=== PATIENT | male | born 1970 | race Caucasian/White ===

== ENCOUNTER 2017-05-25 15:15 | Outpatient (CLI) | payer BC ==
--- NOTE | 2017-05-25 18:57 | RAD ---
LUMBAR SPINE: 05/25/17 Three views. HISTORY: Lumbar pain. Lumbar vertebrae maintain height and alignment. Mild loss of disc space at L5-S1. Mild to moderate d egenerative osteophytes anteriorly. No evidence of spondylolisthesis or spondylolysis. Facet hypertr ophy at L4-5 and L5-S1. IMPRESSION: Mild to moderate degenerative changes in the lumbar spine noted as described. POS: [facility]
== END 2017-05-25 15:16 | disposition home or self-care (01) ==
LOC: RAD-FRANK 15:15
DX: M54.5 Low back pain (principal); M47.816 Spondylosis without myelopathy or radiculopathy, lumbar region
CPT/HCPCS: 72100

== ENCOUNTER 2018-04-19 19:01 | Emergency (ER) | payer BC ==
--- NOTE | 2018-04-19 22:27 | RAD ---
LEFT RIB SERIES: 04/19/18 COMPARISON: None. HISTORY: Left rib pain for three to four days. FINDINGS: Three views of the left ribs shows no evidence of displaced left rib fracture. No underlying pleural thickening or pneumothorax are seen. No expansile rib lesions are present. IMPRESSION: No significant left rib abnormality. POS: [facility]
[2018-04-19] MEDS ORDERED: Ketorolac Tromethamine 60 MG/2 ML VIAL ONE (23:06)
[2018-04-19] MEDS ORDERED: Ibuprofen 800 MG TAB ONE (23:10)
== END 2018-04-20 00:39 | disposition home or self-care (01) ==
LOC: ERS 19:01
DX: R07.81 Pleurodynia (principal); H00.023 Hordeolum internum right eye, unspecified eyelid; I10 Essential (primary) hypertension; Z79.899 Other long term (current) drug therapy
CPT/HCPCS: J1885

== ENCOUNTER 2021-05-18 20:11 | Emergency (ER) | payer BC ==
[2021-05-18] MEDS ORDERED: Proparacaine 0.5% Opth 15 ML BOT ONE (21:38)
[2021-05-18] MEDS ORDERED: Fluorescein Opthalmic Strip ONE (21:38)
== END 2021-05-18 22:20 | disposition home or self-care (01) ==
LOC: ERS 20:11
DX: H00.013 Hordeolum externum right eye, unspecified eyelid (principal); I10 Essential (primary) hypertension
CPT/HCPCS: 99283

== ENCOUNTER 2021-08-15 19:08 | Emergency (ER) | payer BC, OTHER ==
[2021-08-15] MEDS ORDERED: Ketorolac Tromethamine 30 MG/ML VIAL ONE (20:02)
[2021-08-15 20:04] LABS: #Eosinphils 0.2 thou/uL (0.0-0.7); #Lymphocytes 1.9 thou/uL (1.20-3.40); #Monocytes 0.9 thou/uL (0.11-0.59); #Neutrophils 11.1 thou/uL (1.40-6.50); %Basophils 0.3 % (0.0-1.0); %Eosinophils 1.3 % (0.0-10.0); %Lymphocytes 13.6 % (21.0-51.0); %Monocytes 6.2 % (0.0-10.0); %Neutrophils 78.7 % (42.0-75.0); Hemoglobin 16.2 g/dL (14.0-18.0); Mean Corpuscular HGB CONC 34.4 g/dL (32.0-36.0); Mean Corpuscular Hemoglobin 32.8 pg (27.0-31.0); Mean Corpuscular Volume 95.4 fL (78.0-98.0); Mean Platelet Volume 7.2 fL (7.4-10.4); Platelet Count 245 thou/uL (130-400); RBC Distribution Width 12.1 % (11.5-14.5); Red Blood Cell (RBC) Count 4.94 mill/uL (4.70-6.10); White Blood Cell (WBC) Count 14.1 thou/uL (4.8-10.8)
[2021-08-15 20:27] LABS: ALT (SGPT) 21 U/L (8-55); AST (SGOT) 19 U/L (5-34); Albumin 3.8 g/dL (3.5-5.0); Alkaline Phosphatase 116 U/L (40-110); Anion Gap 14 mmol/L (10-20); BUN (Urea Nitrogen) 11 mg/dL (8.4-25.7); Bilirubin, Total 1.7 mg/dL (0.2-1.2); Calc. Creatinine Clearance 0 mL/min (70-130); Calcium 9.2 mg/dL (7.8-10.44); Carbon Dioxide 24 mmol/L (22-29); Chloride 102 mmol/L (98-107); Glucose 339 mg/dL (70-105); Potassium 3.8 mmol/L (3.5-5.1); Protein, Total 6.8 g/dL (6.0-8.3); Sodium 136 mmol/L (136-145)
[2021-08-15] MEDS ORDERED: Lidocaine 1% (PF) 30 ML VIAL ONE (20:37)
[2021-08-15] MEDS ORDERED: cefTRIAXone\\ROCEPHIN 1 GM VIAL ONE (21:38)
[2021-08-15] MEDS ORDERED: cloNIDine 0.2 MG TAB PO SCH (21:45)
== END 2021-08-15 22:28 | disposition home or self-care (01) ==
LOC: ERS 19:08
DX: L02.31 Cutaneous abscess of buttock (principal); L03.317 Cellulitis of buttock; I10 Essential (primary) hypertension
CPT/HCPCS: 10060; 36415; 80053; 85025; 96365; 96375; J0696; J1885; J2001

== ENCOUNTER 2022-01-06 17:37 | Emergency (ER) | payer SELFPAY ==
[2022-01-06] MEDS ORDERED: Ketorolac Tromethamine 30 MG/ML VIAL ONE (19:11)
== END 2022-01-06 19:40 | disposition home or self-care (01) ==
LOC: ERS 17:37
DX: S90.32XA Contusion of left foot, initial encounter (principal); M79.605 Pain in left leg; I10 Essential (primary) hypertension; R73.03 Prediabetes; X58.XXXA Exposure to other specified factors, initial encounter
CPT/HCPCS: 96372; J1885

== ENCOUNTER 2022-01-10 17:38 | Inpatient (IN) | payer OTHER, SELFPAY ==
[2022-01-10] MEDS ORDERED: cefTRIAXone\\ROCEPHIN 1 GM VIAL ONE (18:25)
[2022-01-10 18:29] LABS: Mean Corpuscular HGB CONC 33.1 g/dL (32.0-36.0); Mean Corpuscular Hemoglobin 32.7 pg (27.0-31.0); Mean Corpuscular Volume 98.9 fL (78.0-98.0); Mean Platelet Volume 9.6 fL (7.4-10.4); Platelet Count 235 thou/uL (130-400); RBC Distribution Width 12.6 % (11.5-14.5); Red Blood Cell (RBC) Count 4.89 mill/uL (4.70-6.10); White Blood Cell (WBC) Count 18.8 thou/uL (4.8-10.8)
[2022-01-10 18:44] LABS: ALT (SGPT) 60 U/L (8-55); AST (SGOT) 124 U/L (5-34); Albumin 1.9 g/dL (3.5-5.0); Alkaline Phosphatase 85 U/L (40-110); Anion Gap 28 mmol/L (10-20); BUN (Urea Nitrogen) 84 mg/dL (8.4-25.7); Bilirubin, Total 1.9 mg/dL (0.2-1.2); Calc. Creatinine Clearance 0 mL/min (70-130); Calcium 6.9 mg/dL (7.8-10.44); Carbon Dioxide 12 mmol/L (22-29); Chloride 89 mmol/L (98-107); Glucose 420 mg/dL (70-105); Potassium 3.8 mmol/L (3.5-5.1); Protein, Total 3.9 g/dL (6.0-8.3); Sodium 125 mmol/L (136-145)
[2022-01-10 18:48] LABS: INR-International Normal Ratio 1.5; PTT 34.6 sec (22.9-36.1); Prothrombin Time 18.4 sec (12.0-14.7)
[2022-01-10 18:48] LABS: Band 34 % (5-11); Lymphocytes 8 % (21-51); MDiff Complete? YES; Metamyelocyte 3 % (0-0); Monocytes 3 % (0-10); Myelocyte 3 % (0-0); Neutrophil 47 % (42-75); Platelet Morphology Comment Appears Adequate; Polychromasia SLIGHT = 2-3 cells (100X) (0-2/hpf); Reactive Lymphocytes 2 % (0-10)
[2022-01-10] MEDS ORDERED: Aspirin 325 MG TAB ONE (19:11)
[2022-01-10] MEDS ORDERED: Enoxaparin Sodium 80 MG/0.8 ML SYRINGE ONE (19:11)
[2022-01-10] MEDS ORDERED: Ondansetron ODT 4 MG TAB PO PRN (19:50)
[2022-01-10] MEDS ORDERED: Sodium Chloride 0.9% 1,000 ML IV SCH (20:00)
[2022-01-10] MEDS ORDERED: Piperacillin/Tazobactam 3.375 GM in Sodium Chloride 0.9% 100 ML IVPB SCH ×2 (20:00→20:15)
[2022-01-10] MEDS ORDERED: VANCOMYCIN 1.25 GM/250 ML BAG 1.25 GM in Premix Bag 1 BAG IVPB SCH ×2 (20:02→21:00)
[2022-01-10 20:32] LABS: Analyzer IN Cardio ER; Base Excess (BEa) -13.6 mEq/L (-2.0 to +3.0); CO2 Tension 33.3 mmHg (35.0-45.0); Calcium, Ionized (arterial) 0.98 mmol/L (1.12-1.30); Carboxyhemoglobin (COHb) 0.2 gm% (0.0-3.0); Hemoglobin (Hb) 16.3 g/dL (14.0-18.0); O2 Tension (PaO2), arterial 93.3 mmHg (80.0-100.0); Potassium - ABG Lab 3.36 mmol/L (3.70-5.30)
[2022-01-10] MEDS ORDERED: Norepinephrine 8 MG/0.9% NS 250 ML ONE (20:36)
[2022-01-10 20:38] LABS: ALV-art Gradient 185.925 mmHg (0-20); Puncture Site RRA; pH, Arterial 7.21 (7.35-7.45)
[2022-01-10] MEDS ORDERED: INSULIN REGULAR IN 0.9 % NACL 100 UNIT/100 ML BAG ONE (20:45)
[2022-01-10] MEDS ORDERED: Amiodarone 150 MG/3 ML VIAL ONE ×2 (21:05→21:12)
[2022-01-10] MEDS ORDERED: Amiodarone 150 MG, Admixture Fee 1 EACH in Dextrose 5% in Water 100 ML IVPB SCH (21:15)
[2022-01-10 21:23] LABS: SARS-CoV-2 NAA Rapid Test Not Detected (NotDetected)
[2022-01-10 21:25] LABS: Lactic Acid 7.4 mmol/L (0.5-2.2)
[2022-01-10 21:28] LABS: Bilirubin Negative (Negative); Blood, Urine 3+ (Negative); Clarity Turbid (Clear); Glucose, Urine (Dipstick) Greater than 1000 mg/dL (Negative); Ketone, Urine Trace mg/dL (Negative); Leukocyte 500 Leu/uL (Negative); Nitrite Negative (Negative); Protein, Urine (Dipstick) 100 mg/dL (Neg-Trace); Specific Gravity, Urine 1.018 (1.002-1.036); Squamous Epithelial None Seen HPF (0-3)
[2022-01-10 21:39] LABS: Bacteria/HPF 4+ HPF (None Seen); RBC/HPF Greater than 50 HPF (0-3)
[2022-01-10 21:40] LABS: Yeast-Budding None Seen HPF (None Seen)
[2022-01-10] MEDS ORDERED: Sodium Bicarb 50 MEQ/50 ML VIAL ONE (22:50)
[2022-01-10 22:59] LABS: Actual Bicarbonate (HCO3a) 11.7 mEq/L (22-28); Base Excess (BEa) -14.6 mEq/L (-2.0 to +3.0); CO2 Tension 29.7 mmHg (35.0-45.0); Calcium, Ionized (arterial) 1.01 mmol/L (1.12-1.30); Hemoglobin (Hb) 17.1 g/dL (14.0-18.0); O2 Tension (PaO2), arterial 89.9 mmHg (80.0-100.0)
[2022-01-10 23:00] LABS: ALV-art Gradient 229.475 mmHg (0-20); Puncture Site RRA; pH, Arterial 7.21 (7.35-7.45)
[2022-01-10] MEDS ORDERED: Digoxin 0.5 MG/2 ML AMP SLOW IVP SCH (23:00)
[2022-01-10] MEDS ORDERED: methylPREDNISolone Sod Succ/PF 125 MG/2 ML VIAL IVP SCH (23:00)
[2022-01-10] MEDS ORDERED: Lorazepam 2 MG/ML VIAL SLOW IVP PRN (23:08)
[2022-01-10] MEDS ORDERED: Sodium Bicarbonate 100 MEQ in Sodium Chloride 0.45% 1,000 ML IV SCH (23:15)
[2022-01-10] MEDS ORDERED: Sodium Chloride 0.9% 500 ML IV SCH (23:15)
[2022-01-10] MEDS: Sodium Bicarbonate 150 MEQ in Sterile Water Injection 1,000 ML IV SCH (23:19)
[2022-01-10 23:29] LABS: ALT (SGPT) 62 U/L (8-55); AST (SGOT) 143 U/L (5-34); Albumin 1.9 g/dL (3.5-5.0); Alkaline Phosphatase 78 U/L (40-110); Anion Gap 18 mmol/L (10-20); BUN (Urea Nitrogen) 81 mg/dL (8.4-25.7); Bilirubin, Total 1.6 mg/dL (0.2-1.2); Calc. Creatinine Clearance 0 mL/min (70-130); Calcium 6.9 mg/dL (7.8-10.44); Carbon Dioxide 19 mmol/L (22-29); Chloride 95 mmol/L (98-107); Globulin 2.7 g/dL (2.4-3.5); Glucose 291 mg/dL (70-105); Potassium 3.4 mmol/L (3.5-5.1); Protein, Total 4.6 g/dL (6.0-8.3); Sodium 129 mmol/L (136-145)
[2022-01-10] MEDS ORDERED: Dextrose 5% in Water 1,000 ML IV PRN (23:54)
[2022-01-10] MEDS ORDERED: Dextrose 50% Abboject 50 ML SYRINGE SLOW IVP PRN (23:54)
[2022-01-11] MEDS: Piperacillin/Tazobactam 3.375 GM in Sodium Chloride 0.9% 100 ML IVPB SCH ×4 (00:04→23:05)
[2022-01-11] MEDS: HumaLOG 300 UNITS/3 ML VIAL SC PRN ×4 (00:06→20:52)
[2022-01-11] MEDS ORDERED: Propofol 1,000 MG/100 ML VIAL IV ONE (00:11)
[2022-01-11] MEDS ORDERED: Benzocaine 20% Spray 60 ML CAN FS SCH (00:30)
[2022-01-11 00:56] LABS: Magnesium 2.2 mg/dL (1.6-2.6)
[2022-01-11] MEDS ORDERED: Lorazepam 2 MG/ML VIAL SLOW IVP PRN (01:00)
[2022-01-11] MEDS ORDERED: Morphine 4 MG/ML VIAL SLOW IVP PRN (01:00)
[2022-01-11] MEDS ORDERED: Fentanyl BOLUS 250 ML IVPB PRN (01:00)
[2022-01-11] MEDS ORDERED: DISCONTINUE PREVIOUS NARCOTIC PAIN MEDICATIONS AND BENZODIAZEPINES FS SCH (01:00)
[2022-01-11] MEDS ORDERED: Propofol BOLUS 1,000 MG/100 ML VIAL IV PRN (01:00)
[2022-01-11 01:21] LABS: Actual Bicarbonate (HCO3a) 17.3 mEq/L (22-28); Base Excess (BEa) -7.7 mEq/L (-2.0 to +3.0); CO2 Tension 34.4 mmHg (35.0-45.0); Calcium, Ionized (arterial) 0.93 mmol/L (1.12-1.30); Carboxyhemoglobin (COHb) 0.7 gm% (0.0-3.0); Hemoglobin (Hb) 16.2 g/dL (14.0-18.0); O2 Tension (PaO2), arterial 73.6 mmHg (80.0-100.0); Potassium - ABG Lab 3.33 mmol/L (3.70-5.30); pH, Arterial 7.32 (7.35-7.45)
[2022-01-11 01:23] LABS: Puncture Site Arterial Line
[2022-01-11] MEDS ORDERED: Vecuronium 10 MG VIAL IV PRN (01:45)
[2022-01-11] MEDS: fentaNYL Citrate-0.9 % NaCl/PF 100 ML IV SCH ×2 (01:50→11:10)
[2022-01-11] MEDS: Midazolam HCl 2 mg/2 ml Vial ONE (01:53)
[2022-01-11] MEDS ORDERED: Digoxin 0.5 MG/2 ML AMP SLOW IVP SCH ×3 (02:00→10:00)
[2022-01-11] MEDS: Sodium Bicarbonate 150 MEQ in Sterile Water Injection 1,000 ML IV SCH (02:29)
[2022-01-11] MEDS: Potassium Chloride 20 MEQ in Premix Bag 1 BAG IVPB SCH ×2 (03:20→05:35)
[2022-01-11] MEDS: Propofol 1,000 MG/100 ML VIAL IV PRN ×3 (03:22→20:52)
[2022-01-11] MEDS: Sodium Bicarbonate 150 MEQ in Dextrose 5% in Water 1,000 ML IV SCH ×5 (03:57→23:05)
[2022-01-11 04:11] LABS: Hemoglobin A1c 10.2 % (4.0-6.0)
[2022-01-11 04:29] LABS: ALT (SGPT) 63 U/L (8-55); AST (SGOT) 147 U/L (5-34); Albumin 1.8 g/dL (3.5-5.0); Alkaline Phosphatase 66 U/L (40-110); Anion Gap 20 mmol/L (10-20); BUN (Urea Nitrogen) 87 mg/dL (8.4-25.7); Bilirubin, Total 1.7 mg/dL (0.2-1.2); Calc. Creatinine Clearance 29 mL/min (70-130); Calcium 6.7 mg/dL (7.8-10.44); Carbon Dioxide 18 mmol/L (22-29); Chloride 95 mmol/L (98-107); Globulin 2.6 g/dL (2.4-3.5); Glucose 197 mg/dL (70-105); Potassium 3.5 mmol/L (3.5-5.1); Protein, Total 4.4 g/dL (6.0-8.3); Sodium 129 mmol/L (136-145)
[2022-01-11] MEDS ORDERED: Metoprolol Tartrate 5 MG/5 ML VIAL IVP SCH (05:00)
[2022-01-11] MEDS: methylPREDNISolone Sod Succ 40 MG VIAL IVP SCH ×4 (05:35→23:05)
[2022-01-11 06:03] LABS: Band 24 % (5-11); Hemoglobin 16.2 g/dL (14.0-18.0); Lymphocytes 19 % (21-51); MDiff Complete? YES; Mean Corpuscular HGB CONC 33.2 g/dL (32.0-36.0); Mean Corpuscular Hemoglobin 32.7 pg (27.0-31.0); Mean Corpuscular Volume 98.6 fL (78.0-98.0); Mean Platelet Volume 10.1 fL (7.4-10.4); Metamyelocyte 15 % (0-0); Monocytes 8 % (0-10); Myelocyte 9 % (0-0); Neutrophil 25 % (42-75); Platelet Count 207 thou/uL (130-400); RBC Distribution Width 12.8 % (11.5-14.5); Red Blood Cell (RBC) Count 4.96 mill/uL (4.70-6.10); White Blood Cell (WBC) Count 14.8 thou/uL (4.8-10.8)
[2022-01-11] MEDS: Norepinephrine 8 MG/0.9% NS 250 ML IVPB SCH ×2 (06:26→12:36)
[2022-01-11 07:16] LABS: Lactic Acid 8.2 mmol/L (0.5-2.2)
[2022-01-11 07:25] LABS: Actual Bicarbonate (HCO3a) 13.9 mEq/L (22-28); Base Excess (BEa) -10.8 mEq/L (-2.0 to +3.0); CO2 Tension 28.8 mmHg (35.0-45.0); Calcium, Ionized (arterial) 0.95 mmol/L (1.12-1.30); Hemoglobin (Hb) 16.6 g/dL (14.0-18.0); O2 Tension (PaO2), arterial 79.8 mmHg (80.0-100.0); Potassium - ABG Lab 4.09 mmol/L (3.70-5.30)
[2022-01-11 07:32] LABS: Puncture Site Arterial Line
[2022-01-11 07:47] LABS: Creatinine, Urine 125.54 mg/dL (63-166); Protein, Urine Random Quant 142 mg/dL (1-14); Sodium, Urine Less than 20 mmol/L (Not Available); Urea Nitrogen, Random Urine 348 mg/dl
[2022-01-11] MEDS ORDERED: methylPREDNISolone Sod Succ/PF 125 MG/2 ML VIAL IVP SCH (09:00)
[2022-01-11] MEDS ORDERED: Enoxaparin Sodium 30 MG/0.3 ML SYRINGE SC SCH (09:00)
[2022-01-11] MEDS ORDERED: Communication Order-Pharmacy FS SCH (09:38)
[2022-01-11 10:07] LABS: Amphetamine Not Detected (NotDetected); Barbiturates Screen Not Detected (NotDetected); Benzodiazepine Screen Not Detected (NotDetected); Cocaine Metabolite Screen Not Detected (NotDetected); Methadone Not Detected (NotDetected); Methamphetamine Not Detected (NotDetected); Opiate Screen Not Detected (NotDetected); Oxycodone Screen Not Detected (NotDetected); Phencyclidine (PCP) Not Detected (NotDetected); THC/Cannabinoid Screen Not Detected (NotDetected); Tricyclic Screen Not Detected (NotDetected)
[2022-01-11 10:14] LABS: Hemoglobin 16.1 g/dL (14.0-18.0); Platelet Count 203 thou/uL (130-400)
[2022-01-11] MEDS ORDERED: Vancomycin 1 GM in Premix Bag 1 BAG IVPB SCH (12:15)
[2022-01-11 12:51] LABS: Troponin I 1.093 ng/mL (< 0.028)
[2022-01-11] MEDS ORDERED: Albumin 25% 25 GM/100 ML BOT IVPB SCH (13:15)
[2022-01-11] MEDS: Amiodarone 450 MG in Dextrose 5% in Water 250 ML IVPB SCH (14:26)
[2022-01-11 15:17] LABS: ALT (SGPT) 60 U/L (8-55); AST (SGOT) 131 U/L (5-34); Albumin 1.9 g/dL (3.5-5.0); Alkaline Phosphatase 65 U/L (40-110); Anion Gap 26 mmol/L (10-20); BUN (Urea Nitrogen) 96 mg/dL (8.4-25.7); Calc. Creatinine Clearance 25 mL/min (70-130); Calcium 7.1 mg/dL (7.8-10.44); Carbon Dioxide 13 mmol/L (22-29); Chloride 92 mmol/L (98-107); Globulin 2.4 g/dL (2.4-3.5); Glucose 399 mg/dL (70-105); Potassium 3.8 mmol/L (3.5-5.1); Protein, Total 4.3 g/dL (6.0-8.3); Sodium 127 mmol/L (136-145)
[2022-01-11 15:24] LABS: Troponin I 0.882 ng/mL (< 0.028)
[2022-01-11] MEDS: Albumin 25% 25 GM/100 ML BOT IVPB SCH ×2 (18:17→23:05)
[2022-01-11] MEDS ORDERED: Enoxaparin Sodium 100 MG/ML SYRINGE SC SCH (21:00)
[2022-01-11 21:03] LABS: Actual Bicarbonate (HCO3a) 16.5 mEq/L (22-28); CO2 Tension 28.3 mmHg (35.0-45.0); Calcium, Ionized (arterial) 0.89 mmol/L (1.12-1.30); Carboxyhemoglobin (COHb) 0.8 gm% (0.0-3.0); Hemoglobin (Hb) 14.1 g/dL (14.0-18.0); O2 Tension (PaO2), arterial 75.3 mmHg (80.0-100.0); Potassium - ABG Lab 3.18 mmol/L (3.70-5.30); pH, Arterial 7.38 (7.35-7.45)
[2022-01-11 21:04] LABS: Puncture Site Arterial Line
[2022-01-11 21:07] LABS: ALV-art Gradient 174.525 mmHg (0-20)
[2022-01-11 22:01] LABS: ALT (SGPT) 55 U/L (8-55); AST (SGOT) 139 U/L (5-34); Albumin 2.1 g/dL (3.5-5.0); Alkaline Phosphatase 76 U/L (40-110); Anion Gap 28 mmol/L (10-20); BUN (Urea Nitrogen) 106 mg/dL (8.4-25.7); Bilirubin, Total 2.4 mg/dL (0.2-1.2); Calc. Creatinine Clearance 23 mL/min (70-130); Calcium 6.9 mg/dL (7.8-10.44); Carbon Dioxide 14 mmol/L (22-29); Chloride 90 mmol/L (98-107); Globulin 2.8 g/dL (2.4-3.5); Glucose 394 mg/dL (70-105); Potassium 3.9 mmol/L (3.5-5.1); Protein, Total 4.9 g/dL (6.0-8.3); Sodium 128 mmol/L (136-145)
[2022-01-11] MEDS ORDERED: VANCOMYCIN 1.25 GM/250 ML BAG 1.25 GM in Premix Bag 1 BAG IVPB SCH (23:59)
[2022-01-12] MEDS: HumaLOG 300 UNITS/3 ML VIAL SC PRN ×7 (00:17→21:40)
[2022-01-12] MEDS: fentaNYL Citrate-0.9 % NaCl/PF 100 ML IV SCH ×2 (01:09→12:41)
[2022-01-12 05:03] LABS: Anion Gap 25 mmol/L (10-20); BUN (Urea Nitrogen) 108 mg/dL (8.4-25.7); Calc. Creatinine Clearance 23 mL/min (70-130); Calcium 7.4 mg/dL (7.8-10.44); Carbon Dioxide 19 mmol/L (22-29); Chloride 87 mmol/L (98-107); Glucose 353 mg/dL (70-105); Sodium 128 mmol/L (136-145)
[2022-01-12 05:07] LABS: Fibrinogen 786 mg/dL (253-463)
[2022-01-12 05:08] LABS: INR-International Normal Ratio 1.5; PTT 39.5 sec (22.9-36.1); Prothrombin Time 18.7 sec (12.0-14.7)
[2022-01-12] MEDS: Albumin 25% 25 GM/100 ML BOT IVPB SCH (05:09)
[2022-01-12] MEDS: methylPREDNISolone Sod Succ 40 MG VIAL IVP SCH ×3 (05:09→18:36)
[2022-01-12] MEDS: Norepinephrine 8 MG/0.9% NS 250 ML IVPB SCH (05:09)
[2022-01-12] MEDS: Propofol 1,000 MG/100 ML VIAL IV PRN ×2 (05:09→21:36)
[2022-01-12 05:16] LABS: D-Dimer Test 5.61 *mcg/mL (0.27-0.43)
[2022-01-12 05:21] LABS: Band 65 % (5-11); Hemoglobin 12.8 g/dL (14.0-18.0); Lymphocytes 1 % (21-51); MDiff Complete? YES; Mean Corpuscular HGB CONC 32.2 g/dL (32.0-36.0); Mean Corpuscular Hemoglobin 31.7 pg (27.0-31.0); Mean Corpuscular Volume 98.4 fL (78.0-98.0); Mean Platelet Volume 10.2 fL (7.4-10.4); Metamyelocyte 5 % (0-0); Monocytes 1 % (0-10); Myelocyte 3 % (0-0); Neutrophil 25 % (42-75); Platelet Count 108 thou/uL (130-400); Platelet Morphology Comment Appears Decreased; RBC Distribution Width 12.9 % (11.5-14.5); Red Blood Cell (RBC) Count 4.03 mill/uL (4.70-6.10); Toxic Granulation SLIGHT; Vacuoles SLIGHT
[2022-01-12 05:22] LABS: Platelet Count 108 thou/uL (130-400)
[2022-01-12] MEDS: Amiodarone 450 MG in Dextrose 5% in Water 250 ML IVPB SCH ×2 (05:24→21:36)
[2022-01-12 05:45] LABS: Actual Bicarbonate (HCO3a) 15.3 mEq/L (22-28); Base Excess (BEa) -7.4 mEq/L (-2.0 to +3.0); Hemoglobin (Hb) 10.7 g/dL (14.0-18.0); O2 Tension (PaO2), arterial 72.7 mmHg (80.0-100.0); pH, Arterial 7.44 (7.35-7.45)
[2022-01-12 05:46] LABS: CO2 Tension 23.2 mmHg (35.0-45.0); Puncture Site Arterial Line
[2022-01-12] MEDS ORDERED: Potassium Chloride 40 MEQ in Premix Bag 1 BAG IVPB SCH ×2 (06:00→11:15)
[2022-01-12 06:54] LABS: Critical Call Chem Troponin I RESULT DECREASING; Troponin I 0.549 ng/mL (< 0.028)
[2022-01-12 07:33] LABS: Troponin I 0.946 ng/mL (< 0.028)
[2022-01-12] MEDS: Piperacillin/Tazobactam 3.375 GM in Sodium Chloride 0.9% 100 ML IVPB SCH (08:27)
[2022-01-12 08:36] LABS: Digoxin 0.71 ng/mL (0.8-2.0)
[2022-01-12 10:06] LABS: Potassium 3.2 mmol/L (3.5-5.1)
[2022-01-12] MEDS ORDERED: cefTRIAXone\\ROCEPHIN 2 GM in Sodium Chloride 0.9% 100 ML IVPB SCH (11:00)
[2022-01-12] MEDS ORDERED: Insulin Glargine 30 UNITS/0.3 ML VIAL SC SCH (11:00)
[2022-01-12] MEDS ORDERED: Aspirin 81 mg Enteric Coated Tablet PO SCH (11:30)
[2022-01-12 12:13] LABS: Magnesium 2.3 mg/dL (1.6-2.6)
[2022-01-12] MEDS: Sodium Bicarbonate 150 MEQ in Dextrose 5% in Water 1,000 ML IV SCH (13:30)
[2022-01-12] MEDS ORDERED: VANCOMYCIN 1.25 GM/250 ML BAG 1.25 GM in Premix Bag 1 BAG IVPB SCH (14:15)
[2022-01-12 14:21] LABS: Albumin 2.4 g/dL (3.5-5.0); Anion Gap 27 mmol/L (10-20); BUN (Urea Nitrogen) 111 mg/dL (8.4-25.7); BUN/Creatinine Ratio 22.98; Calc. Creatinine Clearance 22 mL/min (70-130); Calcium 7.2 mg/dL (7.8-10.44); Carbon Dioxide 18 mmol/L (22-29); Chloride 87 mmol/L (98-107); Glucose 310 mg/dL (70-105); Phosphorus 3.4 mg/dL (2.3-4.7); Potassium 3.6 mmol/L (3.5-5.1); Sodium 128 mmol/L (136-145)
[2022-01-12 14:38] LABS: Fibrinogen 868 mg/dL (253-463)
[2022-01-12 14:39] LABS: INR-International Normal Ratio 1.6; PTT 38.8 sec (22.9-36.1); Prothrombin Time 19.1 sec (12.0-14.7)
[2022-01-12 14:47] LABS: D-Dimer Test 5.17 *mcg/mL (0.27-0.43)
[2022-01-12 15:11] LABS: Platelet Count 81 thou/uL (130-400)
[2022-01-12 15:12] LABS: Platelet Count 81 thou/uL (130-400)
[2022-01-12] MEDS: Heparin 5,000 UNITS/ML VIAL SC SCH ×2 (15:57→21:53)
[2022-01-12] MEDS: Oxacillin 2 GM in Sodium Chloride 0.9% 100 ML IVPB SCH ×2 (18:29→21:38)
[2022-01-12 18:32] LABS: Anion Gap 26 mmol/L (10-20); BUN (Urea Nitrogen) 120 mg/dL (8.4-25.7); Calc. Creatinine Clearance 22 mL/min (70-130); Calcium 7.3 mg/dL (7.8-10.44); Carbon Dioxide 19 mmol/L (22-29); Chloride 86 mmol/L (98-107); Glucose 271 mg/dL (70-105); Potassium 3.5 mmol/L (3.5-5.1); Sodium 127 mmol/L (136-145)
[2022-01-13] MEDS: cefTRIAXone\\ROCEPHIN 2 GM in Sodium Chloride 0.9% 100 ML IVPB SCH ×2 (00:15→13:12)
[2022-01-13] MEDS: methylPREDNISolone Sod Succ 40 MG VIAL IVP SCH ×2 (00:17→06:04)
[2022-01-13] MEDS: HumaLOG 300 UNITS/3 ML VIAL SC PRN ×5 (00:24→21:35)
[2022-01-13] MEDS: fentaNYL Citrate-0.9 % NaCl/PF 100 ML IV SCH ×2 (02:47→17:24)
[2022-01-13 05:29] LABS: Anion Gap 29 mmol/L (10-20); CK (CPK) 590 U/L (30-200); Calc. Creatinine Clearance 21 mL/min (70-130); Calcium 7.4 mg/dL (7.8-10.44); Carbon Dioxide 19 mmol/L (22-29); Chloride 86 mmol/L (98-107); Glucose 230 mg/dL (70-105); Potassium 3.7 mmol/L (3.5-5.1); Sodium 130 mmol/L (136-145)
[2022-01-13 05:40] LABS: BUN (Urea Nitrogen) 111 mg/dL (8.4-25.7)
[2022-01-13 08:15] LABS: Hemoglobin 14.1 g/dL (14.0-18.0); Mean Corpuscular HGB CONC 32.7 g/dL (32.0-36.0); Mean Corpuscular Hemoglobin 31.9 pg (27.0-31.0); Mean Corpuscular Volume 97.5 fL (78.0-98.0); Mean Platelet Volume 11.4 fL (7.4-10.4); Platelet Count 89 thou/uL (130-400); RBC Distribution Width 13.1 % (11.5-14.5); Red Blood Cell (RBC) Count 4.43 mill/uL (4.70-6.10)
[2022-01-13 08:29] LABS: Anion Gap 31 mmol/L (10-20); Calc. Creatinine Clearance 21 mL/min (70-130); Calcium 7.6 mg/dL (7.8-10.44); Carbon Dioxide 16 mmol/L (22-29); Chloride 86 mmol/L (98-107); Glucose 242 mg/dL (70-105); Potassium 3.9 mmol/L (3.5-5.1); Sodium 129 mmol/L (136-145)
[2022-01-13 08:38] LABS: Vancomycin, Random 20.1 ug/mL (See Comment)
[2022-01-13] MEDS: Calcium Carbonate 600 MG + Vit D TAB PER TUBE SCH (08:38)
[2022-01-13] MEDS: Heparin 5,000 UNITS/ML VIAL SC SCH ×2 (08:38→21:00)
[2022-01-13 08:40] LABS: BUN (Urea Nitrogen) 121 mg/dL (8.4-25.7)
[2022-01-13 08:59] LABS: Band 25 % (5-11); Lymphocytes 3 % (21-51); MDiff Complete? YES; Metamyelocyte 2 % (0-0); Monocytes 3 % (0-10); Neutrophil 66 % (42-75); Nucleated RBC 1 % (0); Platelet Morphology Comment Appears Decreased; Polychromasia SLIGHT = 2-3 cells (100X) (0-2/hpf); Reactive Lymphocytes 1 % (0-10); Toxic Granulation SLIGHT; Vacuoles SLIGHT
[2022-01-13] MEDS ORDERED: Insulin Glargine 30 UNITS/0.3 ML VIAL SC SCH (09:00)
[2022-01-13] MEDS ORDERED: Aspirin 81 mg Enteric Coated Tablet PO SCH (09:00)
[2022-01-13] MEDS: Aspirin Chewable 81 MG TAB PER TUBE SCH (09:30)
[2022-01-13 09:42] LABS: Magnesium 2.4 mg/dL (1.6-2.6)
[2022-01-13] MEDS: Insulin Glargine 30 UNITS/0.3 ML VIAL SC SCH (10:48)
[2022-01-13 10:52] LABS: Hep B Core Total Ab NonReactive (NonReactive); Hep B Surf AB NonReactive (NonReactive); Hep B Surf Ag NonReactive S/CO (NonReactive); Hep C IgG Ab Non-Reactive (NonReactive)
[2022-01-13 10:53] LABS: HBSAg Index 0.24 S/CO (0-0.99); Hep B Core Total Index 0.07 S/CO (0-0.79); Hep C Index 0.05 S/CO (0-0.79)
[2022-01-13] MEDS ORDERED: Heparin 10,000 UNITS/ 10 ML VIAL ONE (12:34)
[2022-01-13] MEDS: Norepinephrine 8 MG/0.9% NS 250 ML IVPB SCH (13:06)
[2022-01-13] MEDS: Amiodarone 450 MG in Dextrose 5% in Water 250 ML IVPB SCH (13:25)
[2022-01-13] MEDS: Propofol 1,000 MG/100 ML VIAL IV PRN (17:06)
[2022-01-13] MEDS: RIFAMPIN IVPB SCH (21:34)
[2022-01-13] MEDS: Hydrocortisone Sod Succ/PF 100 mg/2 ml Vial IVP SCH (21:34)
[2022-01-13] MEDS: ADMIXTURE FEE IVPB SCH (21:34)
[2022-01-13] MEDS: SODIUM CHLORIDE IVPB SCH (21:34)
[2022-01-14] MEDS: cefTRIAXone\\ROCEPHIN 2 GM in Sodium Chloride 0.9% 100 ML IVPB SCH ×2 (00:10→12:47)
[2022-01-14] MEDS: HumaLOG 300 UNITS/3 ML VIAL SC PRN ×3 (00:11→21:45)
[2022-01-14] MEDS: Amiodarone 450 MG in Dextrose 5% in Water 250 ML IVPB SCH ×2 (04:03→21:10)
[2022-01-14 04:26] LABS: Albumin 2.2 g/dL (3.5-5.0); Anion Gap 30 mmol/L (10-20); BUN (Urea Nitrogen) Greater than 125 mg/dL (8.4-25.7); CK (CPK) 294 U/L (30-200); Calc. Creatinine Clearance 20 mL/min (70-130); Calcium 8.3 mg/dL (7.8-10.44); Carbon Dioxide 23 mmol/L (22-29); Chloride 85 mmol/L (98-107); Glucose 194 mg/dL (70-105); Phosphorus 6.8 mg/dL (2.3-4.7); Potassium 4.3 mmol/L (3.5-5.1); Sodium 134 mmol/L (136-145)
[2022-01-14 04:54] LABS: Band 34 % (5-11); Hemoglobin 14.7 g/dL (14.0-18.0); Large Platelets SLIGHT; Lymphocytes 2 % (21-51); MDiff Complete? YES; Mean Corpuscular HGB CONC 32.1 g/dL (32.0-36.0); Mean Corpuscular Hemoglobin 31.7 pg (27.0-31.0); Mean Corpuscular Volume 98.5 fL (78.0-98.0); Mean Platelet Volume 11.7 fL (7.4-10.4); Monocytes 2 % (0-10); Neutrophil 62 % (42-75); Platelet Count 83 thou/uL (130-400); Platelet Morphology Comment Appears Decreased; RBC Distribution Width 13.3 % (11.5-14.5); Red Blood Cell (RBC) Count 4.64 mill/uL (4.70-6.10); Toxic Granulation SLIGHT; White Blood Cell (WBC) Count 39.6 thou/uL (4.8-10.8)
[2022-01-14] MEDS: fentaNYL Citrate-0.9 % NaCl/PF 100 ML IV SCH ×2 (04:57→18:21)
[2022-01-14 05:32] LABS: BUN/Creatinine Ratio 3.53
[2022-01-14] MEDS ORDERED: Albumin 25% 25 GM/100 ML BOT IVPB SCH (06:00)
[2022-01-14 07:03] LABS: Actual Bicarbonate (HCO3a) 22.2 mEq/L (22-28); Base Excess (BEa) -2.1 mEq/L (-2.0 to +3.0); CO2 Tension 36.8 mmHg (35.0-45.0); Calcium, Ionized (arterial) 0.96 mmol/L (1.12-1.30); Hemoglobin (Hb) 14.9 g/dL (14.0-18.0); Potassium - ABG Lab 3.96 mmol/L (3.70-5.30)
[2022-01-14 07:09] LABS: Puncture Site Arterial Line
[2022-01-14] MEDS: Calcium Carbonate 600 MG + Vit D TAB PER TUBE SCH (07:54)
[2022-01-14] MEDS: Aspirin Chewable 81 MG TAB PER TUBE SCH (07:55)
[2022-01-14] MEDS: Hydrocortisone Sod Succ/PF 100 mg/2 ml Vial IVP SCH ×2 (07:55→21:10)
[2022-01-14] MEDS: Insulin Glargine 30 UNITS/0.3 ML VIAL SC SCH (07:56)
[2022-01-14] MEDS ORDERED: Heparin 10,000 UNITS/ 10 ML VIAL ONE (08:53)
[2022-01-14] MEDS: ADMIXTURE FEE IVPB SCH ×2 (08:57→21:08)
[2022-01-14] MEDS: SODIUM CHLORIDE IVPB SCH ×2 (08:57→21:08)
[2022-01-14] MEDS: RIFAMPIN IVPB SCH ×2 (08:57→21:08)
[2022-01-14] MEDS: Propofol 1,000 MG/100 ML VIAL IV PRN (09:57)
[2022-01-14] MEDS: Norepinephrine 8 MG/0.9% NS 250 ML IVPB SCH (09:57)
[2022-01-14] MEDS: Heparin 5,000 UNITS/ML VIAL SC SCH (10:00)
[2022-01-14] MEDS: Metoclopramide HCl 10 MG/2 ML VIAL IVP SCH ×2 (14:30→21:46)
[2022-01-15] MEDS: cefTRIAXone\\ROCEPHIN 2 GM in Sodium Chloride 0.9% 100 ML IVPB SCH ×2 (00:34→11:48)
[2022-01-15] MEDS: HumaLOG 300 UNITS/3 ML VIAL SC PRN ×4 (00:35→21:03)
[2022-01-15] MEDS: Propofol 1,000 MG/100 ML VIAL IV PRN ×2 (01:06→17:10)
[2022-01-15 05:25] LABS: Albumin 2.1 g/dL (3.5-5.0); Anion Gap 27 mmol/L (10-20); BUN (Urea Nitrogen) 123 mg/dL (8.4-25.7); CK (CPK) 308 U/L (30-200); Calc. Creatinine Clearance 21 mL/min (70-130); Calcium 7.8 mg/dL (7.8-10.44); Carbon Dioxide 23 mmol/L (22-29); Chloride 90 mmol/L (98-107); Glucose 251 mg/dL (70-105); Phosphorus 7.4 mg/dL (2.3-4.7); Sodium 135 mmol/L (136-145)
[2022-01-15 05:28] LABS: Band 23 % (5-11); Dohle Bodies SLIGHT; Lymphocytes 5 % (21-51); MDiff Complete? YES; Mean Corpuscular HGB CONC 33.2 g/dL (32.0-36.0); Mean Corpuscular Hemoglobin 32.4 pg (27.0-31.0); Mean Corpuscular Volume 97.5 fL (78.0-98.0); Mean Platelet Volume 11.7 fL (7.4-10.4); Monocytes 2 % (0-10); Myelocyte 1 % (0-0); Neutrophil 69 % (42-75); Nucleated RBC 1 % (0); Platelet Count 53 thou/uL (130-400); Platelet Morphology Comment Appears Decreased; RBC Distribution Width 13.1 % (11.5-14.5); Toxic Granulation SLIGHT; Vacuoles SLIGHT; White Blood Cell (WBC) Count 23.3 thou/uL (4.8-10.8)
[2022-01-15] MEDS: Metoclopramide HCl 10 MG/2 ML VIAL IVP SCH ×3 (05:54→21:44)
[2022-01-15] MEDS: Norepinephrine 8 MG/0.9% NS 250 ML IVPB SCH (05:57)
[2022-01-15 07:37] LABS: Actual Bicarbonate (HCO3a) 20.4 mEq/L (22-28); Base Excess (BEa) -2.4 mEq/L (-2.0 to +3.0); CO2 Tension 29.8 mmHg (35.0-45.0); Calcium, Ionized (arterial) 0.95 mmol/L (1.12-1.30); Carboxyhemoglobin (COHb) 0.4 gm% (0.0-3.0); Hemoglobin (Hb) 13.3 g/dL (14.0-18.0); O2 Tension (PaO2), arterial 71.4 mmHg (80.0-100.0); pH, Arterial 7.45 (7.35-7.45)
[2022-01-15 07:38] LABS: Puncture Site Arterial Line
[2022-01-15] MEDS: fentaNYL Citrate-0.9 % NaCl/PF 100 ML IV SCH ×2 (07:59→20:34)
[2022-01-15] MEDS: Calcium Carbonate 600 MG + Vit D TAB PER TUBE SCH (08:01)
[2022-01-15] MEDS: Aspirin Chewable 81 MG TAB PER TUBE SCH (08:01)
[2022-01-15] MEDS ORDERED: Heparin 10,000 UNITS/ 10 ML VIAL ONE (08:55)
[2022-01-15] MEDS: Hydrocortisone Sod Succ/PF 100 mg/2 ml Vial IVP SCH ×2 (09:16→21:01)
[2022-01-15] MEDS: Insulin Glargine 30 UNITS/0.3 ML VIAL SC SCH (09:17)
[2022-01-15] MEDS ORDERED: Albumin 25% 25 GM/100 ML BOT IVPB SCH (09:45)
[2022-01-15 10:26] LABS: Actual Bicarbonate (HCO3a) 24.6 mEq/L (22-28); Base Excess (BEa) -1.1 mEq/L (-2.0 to +3.0); CO2 Tension 44.7 mmHg (35.0-45.0); Calcium, Ionized (arterial) 0.99 mmol/L (1.12-1.30); Carboxyhemoglobin (COHb) 0.7 gm% (0.0-3.0); Hemoglobin (Hb) 15.1 g/dL (14.0-18.0); O2 Tension (PaO2), arterial 60.6 mmHg (80.0-100.0); Potassium - ABG Lab 3.93 mmol/L (3.70-5.30); pH, Arterial 7.36 (7.35-7.45)
[2022-01-15 10:30] LABS: ALV-art Gradient 168.725 mmHg (0-20); Puncture Site Arterial Line
[2022-01-15] MEDS: RIFAMPIN IVPB SCH (11:48)
[2022-01-15] MEDS: SODIUM CHLORIDE IVPB SCH (11:48)
[2022-01-15] MEDS: ADMIXTURE FEE IVPB SCH (11:48)
[2022-01-15] MEDS: MULTIVITAMINS IV SCH (14:46)
[2022-01-15] MEDS: Amiodarone 450 MG in Dextrose 5% in Water 250 ML IVPB SCH (14:46)
[2022-01-15] MEDS: SODIUM CHLORIDE IV SCH (14:46)
[2022-01-15] MEDS: [UNRECOGNIZED DRUG - OTHER] IV SCH (14:46)
[2022-01-15] MEDS: CALCIUM CHLORIDE IV SCH (14:46)
[2022-01-15] MEDS ORDERED: Oxacillin 2 GM in Sodium Chloride 0.9% 100 ML IVPB SCH (17:00)
[2022-01-15] MEDS: Oxacillin 2 GM VIAL SLOW IVP SCH ×2 (17:42→21:14)
[2022-01-15] MEDS ORDERED: Fondaparinux Sodium 2.5 MG/0.5 ML SYRINGE SC SCH (19:30)
[2022-01-16] MEDS: Oxacillin 2 GM VIAL SLOW IVP SCH ×6 (01:24→21:39)
[2022-01-16] MEDS: HumaLOG 300 UNITS/3 ML VIAL SC PRN ×5 (01:24→21:39)
[2022-01-16 05:05] LABS: Albumin 2.4 g/dL (3.5-5.0); Anion Gap 23 mmol/L (10-20); BUN (Urea Nitrogen) 99 mg/dL (8.4-25.7); Calc. Creatinine Clearance 24 mL/min (70-130); Calcium 8.2 mg/dL (7.8-10.44); Carbon Dioxide 25 mmol/L (22-29); Chloride 91 mmol/L (98-107); Glucose 267 mg/dL (70-105); Phosphorus 6.7 mg/dL (2.3-4.7); Potassium 4.5 mmol/L (3.5-5.1); Sodium 134 mmol/L (136-145)
[2022-01-16 05:16] LABS: Band 15 % (5-11); Hemoglobin 12.1 g/dL (14.0-18.0); Hypochromia SLIGHT = 6-15 cells (100X) (0-5/hpf); Lymphocytes 10 % (21-51); MDiff Complete? YES; Mean Corpuscular HGB CONC 32.8 g/dL (32.0-36.0); Mean Corpuscular Hemoglobin 32.7 pg (27.0-31.0); Mean Corpuscular Volume 99.7 fL (78.0-98.0); Mean Platelet Volume 11.7 fL (7.4-10.4); Monocytes 11 % (0-10); Neutrophil 63 % (42-75); Platelet Count 34 thou/uL (130-400); Platelet Morphology Comment Appears Decreased; RBC Distribution Width 13.2 % (11.5-14.5); Reactive Lymphocytes 1 % (0-10); Red Blood Cell (RBC) Count 3.71 mill/uL (4.70-6.10); White Blood Cell (WBC) Count 11.8 thou/uL (4.8-10.8)
[2022-01-16] MEDS ORDERED: Fondaparinux Sodium 2.5 MG/0.5 ML SYRINGE SC SCH (06:00)
[2022-01-16] MEDS: Metoclopramide HCl 10 MG/2 ML VIAL IVP SCH ×3 (06:23→21:39)
[2022-01-16] MEDS: Propofol 1,000 MG/100 ML VIAL IV PRN ×2 (06:24→22:15)
[2022-01-16 07:19] LABS: Base Excess (BEa) 0.9 mEq/L (-2.0 to +3.0); CO2 Tension 42.9 mmHg (35.0-45.0); Calcium, Ionized (arterial) 1.01 mmol/L (1.12-1.30); Carboxyhemoglobin (COHb) 0.9 gm% (0.0-3.0); Hemoglobin (Hb) 15.6 g/dL (14.0-18.0); O2 Tension (PaO2), arterial 67.3 mmHg (80.0-100.0); Potassium - ABG Lab 4.14 mmol/L (3.70-5.30)
[2022-01-16 07:33] LABS: ALV-art Gradient 235.575 mmHg (0-20); Puncture Site RRA
[2022-01-16] MEDS: Amiodarone 450 MG in Dextrose 5% in Water 250 ML IVPB SCH ×2 (07:34→22:13)
[2022-01-16] MEDS ORDERED: Lidocaine 1% (PF) 30 ML VIAL ONE (08:05)
[2022-01-16] MEDS: fentaNYL Citrate-0.9 % NaCl/PF 100 ML IV SCH ×2 (08:56→23:55)
[2022-01-16] MEDS ORDERED: Oxacillin 2 GM in Sodium Chloride 0.9% 50 ML IVPB SCH (09:00)
[2022-01-16] MEDS ORDERED: Heparin 10,000 UNITS/ 10 ML VIAL ONE (09:28)
[2022-01-16] MEDS ORDERED: Lidocaine 1% PF 10 ML AMP FS SCH (09:30)
[2022-01-16] MEDS ORDERED: Albumin 25% 25 GM/100 ML BOT IVPB SCH (10:00)
[2022-01-16] MEDS: Insulin Glargine 30 UNITS/0.3 ML VIAL SC SCH (11:08)
[2022-01-16] MEDS: Hydrocortisone Sod Succ/PF 100 mg/2 ml Vial IVP SCH ×2 (11:10→21:39)
[2022-01-16] MEDS: Calcium Carbonate 600 MG + Vit D TAB PER TUBE SCH (11:12)
[2022-01-16] MEDS: Aspirin Chewable 81 MG TAB PER TUBE SCH (11:12)
[2022-01-16] MEDS: MULTIVITAMINS IV SCH (15:05)
[2022-01-16] MEDS: CALCIUM CHLORIDE IV SCH (15:05)
[2022-01-16] MEDS: SODIUM CHLORIDE IV SCH (15:05)
[2022-01-16] MEDS: [UNRECOGNIZED DRUG - OTHER] IV SCH (15:05)
[2022-01-16] MEDS ORDERED: Argatroban (Non -ESRD) 250 MG in Sodium Chloride 0.9% 250 ML 250 ML IVPB SCH (16:00)
[2022-01-16] MEDS ORDERED: Argatroban (ESRD) 250 MG in Sodium Chloride 0.9% 250 ML 250 ML IVPB SCH (16:15)
[2022-01-16] MEDS ORDERED: Insulin Glargine 30 UNITS/0.3 ML VIAL SC SCH (19:35)
[2022-01-17] MEDS: HumaLOG 300 UNITS/3 ML VIAL SC PRN ×6 (00:09→20:24)
[2022-01-17] MEDS: Oxacillin 2 GM VIAL SLOW IVP SCH ×6 (01:55→21:09)
[2022-01-17 04:39] LABS: Albumin 2.4 g/dL (3.5-5.0); Anion Gap 22 mmol/L (10-20); BUN (Urea Nitrogen) 111 mg/dL (8.4-25.7); BUN/Creatinine Ratio 22.84; Calc. Creatinine Clearance 22 mL/min (70-130); Calcium 7.9 mg/dL (7.8-10.44); Carbon Dioxide 25 mmol/L (22-29); Chloride 90 mmol/L (98-107); Glucose 325 mg/dL (70-105); Phosphorus 6.4 mg/dL (2.3-4.7); Potassium 4.8 mmol/L (3.5-5.1); Sodium 132 mmol/L (136-145)
[2022-01-17 04:43] LABS: Band 12 % (5-11); Hemoglobin 9.9 g/dL (14.0-18.0); Lymphocytes 9 % (21-51); MDiff Complete? YES; Macrocytosis SLIGHT = 6-15 cells (100X) (0-5/hpf); Mean Corpuscular HGB CONC 32.2 g/dL (32.0-36.0); Mean Corpuscular Hemoglobin 32.2 pg (27.0-31.0); Mean Corpuscular Volume 99.9 fL (78.0-98.0); Mean Platelet Volume 12.1 fL (7.4-10.4); Metamyelocyte 3 % (0-0); Monocytes 2 % (0-10); Myelocyte 1 % (0-0); Neutrophil 73 % (42-75); Nucleated RBC 4 % (0); Ovalocytes SLIGHT = 2-5 cells (100X) (0-1/hpf); Platelet Count 58 thou/uL (130-400); Platelet Morphology Comment Appears Decreased; RBC Distribution Width 13.4 % (11.5-14.5); Red Blood Cell (RBC) Count 3.07 mill/uL (4.70-6.10); White Blood Cell (WBC) Count 16.1 thou/uL (4.8-10.8)
[2022-01-17] MEDS: Metoclopramide HCl 10 MG/2 ML VIAL IVP SCH ×3 (05:37→21:25)
[2022-01-17] MEDS: Norepinephrine 8 MG/0.9% NS 250 ML IVPB SCH (05:38)
[2022-01-17 07:21] LABS: Actual Bicarbonate (HCO3a) 25.4 mEq/L (22-28); Base Excess (BEa) -0.1 mEq/L (-2.0 to +3.0); CO2 Tension 44.4 mmHg (35.0-45.0); Calcium, Ionized (arterial) 1.05 mmol/L (1.12-1.30); O2 Tension (PaO2), arterial 90.4 mmHg (80.0-100.0); Potassium - ABG Lab 4.46 mmol/L (3.70-5.30); pH, Arterial 7.38 (7.35-7.45)
[2022-01-17 07:39] LABS: Puncture Site RRA
[2022-01-17] MEDS: Calcium Carbonate 600 MG + Vit D TAB PER TUBE SCH (08:43)
[2022-01-17] MEDS: Aspirin Chewable 81 MG TAB PER TUBE SCH (08:43)
[2022-01-17] MEDS: Hydrocortisone Sod Succ/PF 100 mg/2 ml Vial IVP SCH ×2 (08:44→21:09)
[2022-01-17] MEDS: Albumin 25% 25 GM/100 ML BOT IVPB SCH ×3 (09:00→21:09)
[2022-01-17] MEDS ORDERED: Albumin 25% 25 GM/100 ML BOT IVPB PRN (09:45)
[2022-01-17] MEDS: fentaNYL Citrate-0.9 % NaCl/PF 100 ML IV SCH (13:09)
[2022-01-17] MEDS: MULTIVITAMINS IV SCH (14:21)
[2022-01-17] MEDS: SODIUM CHLORIDE IV SCH (14:21)
[2022-01-17] MEDS: [UNRECOGNIZED DRUG - OTHER] IV SCH (14:21)
[2022-01-17] MEDS: CALCIUM CHLORIDE IV SCH (14:21)
[2022-01-17] MEDS: Propofol 1,000 MG/100 ML VIAL IV PRN (15:44)
[2022-01-17] MEDS: Amiodarone 450 MG in Dextrose 5% in Water 250 ML IVPB SCH (15:44)
[2022-01-18] MEDS: HumaLOG 300 UNITS/3 ML VIAL SC PRN ×6 (00:16→21:11)
[2022-01-18] MEDS: fentaNYL Citrate-0.9 % NaCl/PF 100 ML IV SCH ×2 (02:31→18:04)
[2022-01-18] MEDS: Oxacillin 2 GM VIAL SLOW IVP SCH ×6 (02:31→21:11)
[2022-01-18 05:09] LABS: Albumin 2.7 g/dL (3.5-5.0); Anion Gap 18 mmol/L (10-20); BUN (Urea Nitrogen) 89 mg/dL (8.4-25.7); BUN/Creatinine Ratio 22.47; Calc. Creatinine Clearance 26 mL/min (70-130); Calcium 8.1 mg/dL (7.8-10.44); Carbon Dioxide 26 mmol/L (22-29); Chloride 94 mmol/L (98-107); Glucose 239 mg/dL (70-105); Phosphorus 5.9 mg/dL (2.3-4.7); Potassium 4.3 mmol/L (3.5-5.1); Sodium 134 mmol/L (136-145)
[2022-01-18 05:16] LABS: Band 30 % (5-11); Hemoglobin 8.1 g/dL (14.0-18.0); Hypochromia SLIGHT = 6-15 cells (100X) (0-5/hpf); Lymphocytes 3 % (21-51); MDiff Complete? YES; Macrocytosis SLIGHT = 6-15 cells (100X) (0-5/hpf); Mean Corpuscular HGB CONC 32.1 g/dL (32.0-36.0); Mean Corpuscular Volume 99.7 fL (78.0-98.0); Mean Platelet Volume 11.7 fL (7.4-10.4); Monocytes 2 % (0-10); Neutrophil 65 % (42-75); Platelet Count 75 thou/uL (130-400); Platelet Morphology Comment Appears Decreased; RBC Distribution Width 13.4 % (11.5-14.5); Red Blood Cell (RBC) Count 2.54 mill/uL (4.70-6.10); White Blood Cell (WBC) Count 17.2 thou/uL (4.8-10.8)
[2022-01-18] MEDS: Propofol 1,000 MG/100 ML VIAL IV PRN (06:07)
[2022-01-18] MEDS: Norepinephrine 8 MG/0.9% NS 250 ML IVPB SCH (06:07)
[2022-01-18] MEDS: Metoclopramide HCl 10 MG/2 ML VIAL IVP SCH ×3 (06:07→21:11)
[2022-01-18 07:04] LABS: Base Excess (BEa) 1.4 mEq/L (-2.0 to +3.0); CO2 Tension 41.1 mmHg (35.0-45.0); Carboxyhemoglobin (COHb) 0.5 gm% (0.0-3.0); Hemoglobin (Hb) 8.5 g/dL (14.0-18.0); O2 Tension (PaO2), arterial 88.4 mmHg (80.0-100.0); Potassium - ABG Lab 3.95 mmol/L (3.70-5.30); pH, Arterial 7.42 (7.35-7.45)
[2022-01-18 07:05] LABS: Puncture Site RRA
[2022-01-18 07:06] LABS: ALV-art Gradient 145.425 mmHg (0-20)
[2022-01-18] MEDS: Calcium Carbonate 600 MG + Vit D TAB PER TUBE SCH (07:42)
[2022-01-18] MEDS: Aspirin Chewable 81 MG TAB PER TUBE SCH (07:43)
[2022-01-18] MEDS ORDERED: Insulin Glargine 30 UNITS/0.3 ML VIAL SC SCH (09:00)
[2022-01-18] MEDS ORDERED: Heparin 10,000 UNITS/ 10 ML VIAL ONE (09:38)
[2022-01-18] MEDS: Hydrocortisone Sod Succ/PF 100 mg/2 ml Vial IVP SCH ×2 (10:00→21:11)
[2022-01-18] MEDS: Amiodarone 450 MG in Dextrose 5% in Water 250 ML IVPB SCH (11:02)
[2022-01-18] MEDS: MULTIVITAMINS IV SCH (13:17)
[2022-01-18] MEDS: SODIUM CHLORIDE IV SCH (13:17)
[2022-01-18] MEDS: [UNRECOGNIZED DRUG - OTHER] IV SCH (13:17)
[2022-01-18] MEDS: CALCIUM CHLORIDE IV SCH (13:17)
[2022-01-18 15:12] LABS: Heparin-Induced Ab (HITA) 0.073 OD (0.000-0.400)
[2022-01-19] MEDS: HumaLOG 300 UNITS/3 ML VIAL SC PRN ×4 (01:02→20:54)
[2022-01-19] MEDS: Oxacillin 2 GM VIAL SLOW IVP SCH ×7 (01:03→20:51)
[2022-01-19] MEDS: Amiodarone 450 MG in Dextrose 5% in Water 250 ML IVPB SCH ×2 (02:27→17:43)
[2022-01-19] MEDS: Metoclopramide HCl 10 MG/2 ML VIAL IVP SCH ×3 (05:09→22:04)
[2022-01-19] MEDS: fentaNYL Citrate-0.9 % NaCl/PF 100 ML IV SCH ×2 (05:10→22:13)
[2022-01-19 05:28] LABS: Albumin 2.2 g/dL (3.5-5.0); Anion Gap 15 mmol/L (10-20); BUN (Urea Nitrogen) 93 mg/dL (8.4-25.7); BUN/Creatinine Ratio 22.96; Calc. Creatinine Clearance 25 mL/min (70-130); Calcium 8.1 mg/dL (7.8-10.44); Carbon Dioxide 26 mmol/L (22-29); Chloride 96 mmol/L (98-107); Glucose 228 mg/dL (70-105); Phosphorus 6.3 mg/dL (2.3-4.7); Potassium 4.2 mmol/L (3.5-5.1); Sodium 133 mmol/L (136-145)
[2022-01-19 06:00] LABS: Band 15 % (5-11); Hemoglobin 7.3 g/dL (14.0-18.0); Lymphocytes 3 % (21-51); MDiff Complete? YES; Macrocytosis MODERATE=16-30 cells (100X) (0-5/hpf); Mean Corpuscular HGB CONC 32.1 g/dL (32.0-36.0); Mean Corpuscular Hemoglobin 32.2 pg (27.0-31.0); Mean Platelet Volume 11.3 fL (7.4-10.4); Metamyelocyte 2 % (0-0); Monocytes 4 % (0-10); Myelocyte 1 % (0-0); Neutrophil 75 % (42-75); Platelet Count 76 thou/uL (130-400); Platelet Morphology Comment Appears Decreased; RBC Distribution Width 13.7 % (11.5-14.5); Red Blood Cell (RBC) Count 2.27 mill/uL (4.70-6.10); White Blood Cell (WBC) Count 15.8 thou/uL (4.8-10.8)
[2022-01-19] MEDS ORDERED: Albumin 25% 25 GM/100 ML BOT IVPB SCH (07:45)
[2022-01-19] MEDS: Calcium Carbonate 600 MG + Vit D TAB PER TUBE SCH (09:53)
[2022-01-19] MEDS: Aspirin Chewable 81 MG TAB PER TUBE SCH (09:54)
[2022-01-19] MEDS: Hydrocortisone Sod Succ/PF 100 mg/2 ml Vial IVP SCH ×2 (10:08→20:51)
[2022-01-19] MEDS: NPH, Human Insulin Isophane 300 UNIT/3 ML VIAL SC SCH ×2 (10:11→20:51)
[2022-01-19] MEDS: MULTIVITAMINS IV SCH (14:58)
[2022-01-19] MEDS: CALCIUM CHLORIDE IV SCH (14:58)
[2022-01-19] MEDS: SODIUM CHLORIDE IV SCH (14:58)
[2022-01-19] MEDS: [UNRECOGNIZED DRUG - OTHER] IV SCH (14:58)
[2022-01-20] MEDS: Oxacillin 2 GM VIAL SLOW IVP SCH ×6 (00:55→20:56)
[2022-01-20] MEDS: HumaLOG 300 UNITS/3 ML VIAL SC PRN ×4 (00:56→14:39)
[2022-01-20 04:28] LABS: Albumin 2.6 g/dL (3.5-5.0); Anion Gap 19 mmol/L (10-20); BUN (Urea Nitrogen) 82 mg/dL (8.4-25.7); Calc. Creatinine Clearance 27 mL/min (70-130); Calcium 8.3 mg/dL (7.8-10.44); Carbon Dioxide 25 mmol/L (22-29); Chloride 97 mmol/L (98-107); Glucose 203 mg/dL (70-105); Phosphorus 6.2 mg/dL (2.3-4.7); Potassium 4.2 mmol/L (3.5-5.1); Sodium 137 mmol/L (136-145)
[2022-01-20 04:35] LABS: Band 7 % (5-11); Hemoglobin 8.6 g/dL (14.0-18.0); Hypochromia SLIGHT = 6-15 cells (100X) (0-5/hpf); Lymphocytes 6 % (21-51); MDiff Complete? YES; Mean Corpuscular HGB CONC 32.5 g/dL (32.0-36.0); Mean Corpuscular Hemoglobin 31.7 pg (27.0-31.0); Mean Corpuscular Volume 97.7 fL (78.0-98.0); Monocytes 9 % (0-10); Neutrophil 78 % (42-75); Platelet Count 131 thou/uL (130-400); Platelet Morphology Comment Appears Adequate; RBC Distribution Width 14.5 % (11.5-14.5); White Blood Cell (WBC) Count 16.8 thou/uL (4.8-10.8)
[2022-01-20] MEDS: Metoclopramide HCl 10 MG/2 ML VIAL IVP SCH ×3 (05:42→21:02)
[2022-01-20 08:12] LABS: Base Excess (BEa) -2.2 mEq/L (-2.0 to +3.0); Calcium, Ionized (arterial) 1.08 mmol/L (1.12-1.30); Carboxyhemoglobin (COHb) 0.7 gm% (0.0-3.0); Hemoglobin (Hb) 8.2 g/dL (14.0-18.0); O2 Tension (PaO2), arterial 102.5 mmHg (80.0-100.0); Potassium - ABG Lab 3.71 mmol/L (3.70-5.30); pH, Arterial 7.42 (7.35-7.45)
[2022-01-20 08:13] LABS: Puncture Site RBA
[2022-01-20] MEDS: Calcium Carbonate 600 MG + Vit D TAB PER TUBE SCH (08:13)
[2022-01-20] MEDS: Aspirin Chewable 81 MG TAB PER TUBE SCH (08:14)
[2022-01-20] MEDS: Hydrocortisone Sod Succ/PF 100 mg/2 ml Vial IVP SCH ×2 (10:09→20:57)
[2022-01-20] MEDS: NPH, Human Insulin Isophane 300 UNIT/3 ML VIAL SC SCH ×3 (10:20→21:02)
[2022-01-20] MEDS: Pantoprazole 40 MG VIAL IVP SCH ×2 (10:20→20:56)
[2022-01-20] MEDS: Amiodarone 450 MG in Dextrose 5% in Water 250 ML IVPB SCH (10:38)
[2022-01-20] MEDS: CALCIUM CHLORIDE IV SCH (15:38)
[2022-01-20] MEDS: SODIUM CHLORIDE IV SCH (15:38)
[2022-01-20] MEDS: MULTIVITAMINS IV SCH (15:38)
[2022-01-20] MEDS: [UNRECOGNIZED DRUG - OTHER] IV SCH (15:38)
[2022-01-20] MEDS: fentaNYL Citrate-0.9 % NaCl/PF 100 ML IV SCH (19:14)
[2022-01-20] MEDS: Senokot S 8.6-50 MG TAB PO SCH (20:57)
[2022-01-21] MEDS: Oxacillin 2 GM VIAL SLOW IVP SCH ×6 (00:16→21:15)
[2022-01-21] MEDS: HumaLOG 300 UNITS/3 ML VIAL SC PRN (00:22)
[2022-01-21] MEDS: Amiodarone 450 MG in Dextrose 5% in Water 250 ML IVPB SCH ×2 (00:54→13:40)
[2022-01-21 04:15] LABS: Albumin 2.1 g/dL (3.5-5.0); Anion Gap 20 mmol/L (10-20); Calc. Creatinine Clearance 18 mL/min (70-130); Calcium 7.8 mg/dL (7.8-10.44); Carbon Dioxide 21 mmol/L (22-29); Chloride 98 mmol/L (98-107); Glucose 156 mg/dL (70-105); Phosphorus 7.1 mg/dL (2.3-4.7); Potassium 4.1 mmol/L (3.5-5.1); Sodium 135 mmol/L (136-145)
[2022-01-21 04:19] LABS: Anisocytosis SLIGHT = 6-15 cells (100X) (0-5/hpf); Band 9 % (5-11); Hemoglobin 7.9 g/dL (14.0-18.0); Lymphocytes 3 % (21-51); MDiff Complete? YES; Macrocytosis SLIGHT = 6-15 cells (100X) (0-5/hpf); Mean Corpuscular HGB CONC 32.7 g/dL (32.0-36.0); Mean Corpuscular Hemoglobin 32.4 pg (27.0-31.0); Mean Corpuscular Volume 99.1 fL (78.0-98.0); Mean Platelet Volume 8.7 fL (7.4-10.4); Metamyelocyte 1 % (0-0); Neutrophil 87 % (42-75); Platelet Count 171 thou/uL (130-400); Platelet Morphology Comment Appears Adequate; RBC Distribution Width 14.8 % (11.5-14.5); Red Blood Cell (RBC) Count 2.44 mill/uL (4.70-6.10); White Blood Cell (WBC) Count 18.8 thou/uL (4.8-10.8)
[2022-01-21 04:47] LABS: BUN (Urea Nitrogen) 126 mg/dL (8.4-25.7); BUN/Creatinine Ratio 22.83
[2022-01-21] MEDS: Metoclopramide HCl 10 MG/2 ML VIAL IVP SCH ×3 (05:28→21:15)
[2022-01-21] MEDS: Senokot S 8.6-50 MG TAB PO SCH ×2 (08:01→21:15)
[2022-01-21] MEDS: Aspirin Chewable 81 MG TAB PER TUBE SCH (08:02)
[2022-01-21] MEDS: Polyethylene Glycol 3350 17 GM Packet PER TUBE SCH (08:02)
[2022-01-21] MEDS: Calcium Carbonate 600 MG + Vit D TAB PER TUBE SCH (08:02)
[2022-01-21] MEDS ORDERED: Hydrocortisone Sod Succ/PF 100 mg/2 ml Vial IVP SCH (09:00)
[2022-01-21] MEDS: Pantoprazole 40 MG VIAL IVP SCH ×2 (09:30→21:15)
[2022-01-21 12:01] LABS: Hemoglobin 9.4 g/dL (14.0-18.0)
[2022-01-21] MEDS ORDERED: Albumin 25% 25 GM/100 ML BOT IVPB PRN (12:07)
[2022-01-21] MEDS: NPH, Human Insulin Isophane 300 UNIT/3 ML VIAL SC SCH ×2 (12:08→21:35)
[2022-01-21] MEDS: [UNRECOGNIZED DRUG - OTHER] IV SCH (14:09)
[2022-01-21] MEDS: MULTIVITAMINS IV SCH (14:09)
[2022-01-21] MEDS: SODIUM CHLORIDE IV SCH (14:09)
[2022-01-21] MEDS: CALCIUM CHLORIDE IV SCH (14:09)
[2022-01-22] MEDS: Oxacillin 2 GM VIAL SLOW IVP SCH ×6 (00:35→21:08)
[2022-01-22 04:20] LABS: Albumin 2.3 g/dL (3.5-5.0); Anion Gap 18 mmol/L (10-20); BUN (Urea Nitrogen) 107 mg/dL (8.4-25.7); BUN/Creatinine Ratio 22.62; Calc. Creatinine Clearance 20 mL/min (70-130); Calcium 7.9 mg/dL (7.8-10.44); Carbon Dioxide 20 mmol/L (22-29); Chloride 100 mmol/L (98-107); Glucose 101 mg/dL (70-105); Phosphorus 5.1 mg/dL (2.3-4.7); Potassium 3.6 mmol/L (3.5-5.1); Sodium 134 mmol/L (136-145)
[2022-01-22] MEDS: Amiodarone 450 MG in Dextrose 5% in Water 250 ML IVPB SCH ×3 (04:26→21:06)
[2022-01-22 04:53] LABS: Band 13 % (5-11); Hemoglobin 7.7 g/dL (14.0-18.0); Hypochromia SLIGHT = 6-15 cells (100X) (0-5/hpf); Lymphocytes 3 % (21-51); MDiff Complete? YES; Mean Corpuscular HGB CONC 32.6 g/dL (32.0-36.0); Mean Corpuscular Hemoglobin 32.4 pg (27.0-31.0); Mean Corpuscular Volume 99.4 fL (78.0-98.0); Mean Platelet Volume 8.2 fL (7.4-10.4); Neutrophil 84 % (42-75); Platelet Count 207 thou/uL (130-400); Platelet Morphology Comment Appears Adequate; RBC Distribution Width 14.9 % (11.5-14.5); Red Blood Cell (RBC) Count 2.38 mill/uL (4.70-6.10); White Blood Cell (WBC) Count 21.7 thou/uL (4.8-10.8)
[2022-01-22] MEDS: Metoclopramide HCl 10 MG/2 ML VIAL IVP SCH ×3 (06:31→21:06)
[2022-01-22] MEDS: Calcium Carbonate 600 MG + Vit D TAB PER TUBE SCH (08:00)
[2022-01-22] MEDS: Senokot S 8.6-50 MG TAB PO SCH ×2 (08:00→21:13)
[2022-01-22] MEDS: Polyethylene Glycol 3350 17 GM Packet PER TUBE SCH (09:59)
[2022-01-22] MEDS: Heparin 5,000 UNITS/ML VIAL SC SCH ×2 (10:19→21:13)
[2022-01-22] MEDS: Pantoprazole 40 MG VIAL IVP SCH ×2 (10:20→21:10)
[2022-01-22] MEDS: NPH, Human Insulin Isophane 300 UNIT/3 ML VIAL SC SCH (10:30)
[2022-01-22] MEDS: MULTIVITAMINS IV SCH (15:04)
[2022-01-22] MEDS: CALCIUM CHLORIDE IV SCH (15:04)
[2022-01-22] MEDS: SODIUM CHLORIDE IV SCH (15:04)
[2022-01-22] MEDS: [UNRECOGNIZED DRUG - OTHER] IV SCH (15:04)
[2022-01-22] MEDS ORDERED: Morphine 2 MG/ML VIAL SLOW IVP PRN (15:58)
[2022-01-22] MEDS: Morphine 4 MG/ML VIAL SLOW IVP PRN (16:34)
[2022-01-22] MEDS: Amiodarone 200 MG TAB PO SCH (21:13)
[2022-01-23] MEDS: Oxacillin 2 GM VIAL SLOW IVP SCH ×6 (00:46→20:34)
[2022-01-23] MEDS: Metoclopramide HCl 10 MG/2 ML VIAL IVP SCH ×3 (05:28→21:01)
[2022-01-23 06:11] LABS: Hemoglobin 7.5 g/dL (14.0-18.0); Mean Corpuscular HGB CONC 32.3 g/dL (32.0-36.0); Mean Platelet Volume 8.2 fL (7.4-10.4); Platelet Count 243 thou/uL (130-400); RBC Distribution Width 14.3 % (11.5-14.5); Red Blood Cell (RBC) Count 2.36 mill/uL (4.70-6.10); White Blood Cell (WBC) Count 21.8 thou/uL (4.8-10.8)
[2022-01-23 06:31] LABS: BUN (Urea Nitrogen) 147 mg/dL (8.4-25.7)
[2022-01-23 06:45] LABS: Band 10 % (5-11); Lymphocytes 1 % (21-51); MDiff Complete? YES; Monocytes 3 % (0-10); Neutrophil 86 % (42-75)
[2022-01-23 06:59] LABS: Albumin 1.9 g/dL (3.5-5.0); Anion Gap 22 mmol/L (10-20); Calc. Creatinine Clearance 15 mL/min (70-130); Calcium 7.3 mg/dL (7.8-10.44); Carbon Dioxide 15 mmol/L (22-29); Chloride 99 mmol/L (98-107); Glucose 158 mg/dL (70-105); Phosphorus 7.2 mg/dL (2.3-4.7); Potassium 4.3 mmol/L (3.5-5.1); Sodium 132 mmol/L (136-145)
[2022-01-23] MEDS: Amiodarone 200 MG TAB PO SCH ×2 (07:26→21:14)
[2022-01-23] MEDS: Calcium Carbonate 600 MG + Vit D TAB PER TUBE SCH (07:26)
[2022-01-23] MEDS: Polyethylene Glycol 3350 17 GM Packet PER TUBE SCH (07:27)
[2022-01-23] MEDS: Senokot S 8.6-50 MG TAB PO SCH ×2 (07:27→21:18)
[2022-01-23] MEDS: Heparin 5,000 UNITS/ML VIAL SC SCH ×2 (07:43→20:39)
[2022-01-23] MEDS: Pantoprazole 40 MG VIAL IVP SCH ×2 (07:43→20:35)
[2022-01-23] MEDS ORDERED: ADMIXTURE FEE CHEMO IVPB SCH (08:15)
[2022-01-23] MEDS ORDERED: MANNITOL 20% IVPB SCH (08:15)
[2022-01-23] MEDS ORDERED: Albumin 25% 100 ML ONE (13:27)
[2022-01-23] MEDS: CALCIUM CHLORIDE IV SCH (13:40)
[2022-01-23] MEDS: [UNRECOGNIZED DRUG - OTHER] IV SCH (13:40)
[2022-01-23] MEDS: MULTIVITAMINS IV SCH (13:40)
[2022-01-23] MEDS: SODIUM CHLORIDE IV SCH (13:40)
[2022-01-23] MEDS ORDERED: Iron, Sodium Ferric Gluconate 250 MG in Sodium Chloride 0.9% 250 ML 250 ML IVPB SCH (14:00)
[2022-01-23] MEDS: Iron, Sodium Ferric Gluconate 250 MG in Sodium Chloride 0.9% 250 ML 250 ML IVPB SCH (17:29)
[2022-01-24] MEDS: Oxacillin 2 GM VIAL SLOW IVP SCH ×6 (00:55→21:30)
[2022-01-24] MEDS: Amiodarone 450 MG in Dextrose 5% in Water 250 ML IVPB SCH (03:21)
[2022-01-24] MEDS: Calcium Carbonate 500 MG ChewTAB PO PRN (03:21)
[2022-01-24 04:28] LABS: Anion Gap 17 mmol/L (10-20); BUN (Urea Nitrogen) 100 mg/dL (8.4-25.7); Calc. Creatinine Clearance 22 mL/min (70-130); Calcium 7.9 mg/dL (7.8-10.44); Carbon Dioxide 20 mmol/L (22-29); Chloride 101 mmol/L (98-107); Glucose 211 mg/dL (70-105); Potassium 3.7 mmol/L (3.5-5.1); Sodium 134 mmol/L (136-145)
[2022-01-24 05:06] LABS: #Lymphocytes 0.4 thou/uL (1.20-3.40); #Monocytes 0.5 thou/uL (0.11-0.59); #Neutrophils 14.5 thou/uL (1.40-6.50); %Basophils 0.2 % (0.0-1.0); %Eosinophils 0.1 % (0.0-10.0); %Lymphocytes 2.4 % (21.0-51.0); %Monocytes 3.3 % (0.0-10.0); %Neutrophils 94.1 % (42.0-75.0); Hemoglobin 7.3 g/dL (14.0-18.0); Mean Corpuscular HGB CONC 32.5 g/dL (32.0-36.0); Mean Corpuscular Hemoglobin 32.6 pg (27.0-31.0); Mean Platelet Volume 7.8 fL (7.4-10.4); Platelet Count 284 thou/uL (130-400); RBC Distribution Width 14.3 % (11.5-14.5); Red Blood Cell (RBC) Count 2.23 mill/uL (4.70-6.10); White Blood Cell (WBC) Count 15.4 thou/uL (4.8-10.8)
[2022-01-24] MEDS: Metoclopramide HCl 10 MG/2 ML VIAL IVP SCH ×3 (06:00→21:29)
[2022-01-24] MEDS: Polyethylene Glycol 3350 17 GM Packet PER TUBE SCH (07:51)
[2022-01-24] MEDS: Senokot S 8.6-50 MG TAB PO SCH ×2 (07:52→21:31)
[2022-01-24] MEDS: Heparin 5,000 UNITS/ML VIAL SC SCH ×3 (09:48→21:31)
[2022-01-24] MEDS: Morphine 4 MG/ML VIAL SLOW IVP PRN (09:49)
[2022-01-24] MEDS: Calcium Carbonate 600 MG + Vit D TAB PER TUBE SCH (09:49)
[2022-01-24] MEDS: Amiodarone 200 MG TAB PO SCH ×2 (09:49→21:30)
[2022-01-24] MEDS: Pantoprazole 40 MG VIAL IVP SCH ×2 (09:54→21:29)
[2022-01-24] MEDS ORDERED: [UNRECOGNIZED DRUG - OTHER] IV SCH (14:00)
[2022-01-24] MEDS ORDERED: SODIUM CHLORIDE IV SCH (14:00)
[2022-01-24] MEDS ORDERED: MULTIVITAMINS IV SCH (14:00)
[2022-01-24] MEDS ORDERED: CALCIUM CHLORIDE IV SCH (14:00)
[2022-01-24] MEDS: MULTIVITAMINS IV SCH (15:11)
[2022-01-24] MEDS: [UNRECOGNIZED DRUG - OTHER] IV SCH (15:11)
[2022-01-24] MEDS: CALCIUM CHLORIDE IV SCH (15:11)
[2022-01-24] MEDS: SODIUM CHLORIDE IV SCH (15:11)
[2022-01-24] MEDS ORDERED: Dextrose 10% in Water 1,000 ML IV SCH (18:00)
[2022-01-24] MEDS: Iron, Sodium Ferric Gluconate 250 MG in Sodium Chloride 0.9% 250 ML 250 ML IVPB SCH (18:25)
[2022-01-25] MEDS: Oxacillin 2 GM VIAL SLOW IVP SCH ×6 (00:23→21:49)
[2022-01-25] MEDS: Morphine 4 MG/ML VIAL SLOW IVP PRN ×3 (00:30→21:49)
[2022-01-25] MEDS: Metoclopramide HCl 10 MG/2 ML VIAL IVP SCH ×3 (05:05→21:49)
[2022-01-25 05:21] LABS: #Basophils 0.1 thou/uL (0.0-0.2); #Lymphocytes 0.5 thou/uL (1.20-3.40); #Monocytes 0.4 thou/uL (0.11-0.59); #Neutrophils 9.1 thou/uL (1.40-6.50); %Basophils 0.5 % (0.0-1.0); %Eosinophils 0.1 % (0.0-10.0); %Lymphocytes 4.8 % (21.0-51.0); %Monocytes 4.4 % (0.0-10.0); %Neutrophils 90.3 % (42.0-75.0); Hemoglobin 7.2 g/dL (14.0-18.0); Mean Corpuscular HGB CONC 32.4 g/dL (32.0-36.0); Mean Corpuscular Hemoglobin 32.5 pg (27.0-31.0); Mean Platelet Volume 7.6 fL (7.4-10.4); Platelet Count 334 thou/uL (130-400); RBC Distribution Width 14.4 % (11.5-14.5); Red Blood Cell (RBC) Count 2.22 mill/uL (4.70-6.10); White Blood Cell (WBC) Count 10.1 thou/uL (4.8-10.8)
[2022-01-25 05:44] LABS: Iron 104 ug/dL (65-175); Iron Binding Capacity, Total 103 mcg/dL (261-462)
[2022-01-25] MEDS ORDERED: Dextrose 10% in Water 1,000 ML IV SCH (06:00)
[2022-01-25] MEDS ORDERED: Epoetin (ESRD) 10,000 UNITS/ML VIAL SC SCH (07:15)
[2022-01-25 07:40] LABS: Anion Gap 14 mmol/L (10-20); BUN (Urea Nitrogen) 61 mg/dL (8.4-25.7); BUN/Creatinine Ratio 18.26; Calc. Creatinine Clearance 29 mL/min (70-130); Calcium 7.8 mg/dL (7.8-10.44); Carbon Dioxide 26 mmol/L (22-29); Chloride 99 mmol/L (98-107); Glucose 193 mg/dL (70-105); Phosphorus 5.8 mg/dL (2.3-4.7); Potassium 4.1 mmol/L (3.5-5.1); Sodium 135 mmol/L (136-145)
[2022-01-25] MEDS: Amiodarone 200 MG TAB PO SCH ×2 (10:28→21:50)
[2022-01-25] MEDS: Heparin 5,000 UNITS/ML VIAL SC SCH ×3 (10:29→21:50)
[2022-01-25] MEDS: Pantoprazole 40 MG VIAL IVP SCH ×2 (10:29→21:51)
[2022-01-25] MEDS: Senokot S 8.6-50 MG TAB PO SCH ×2 (10:32→21:50)
[2022-01-25] MEDS: Polyethylene Glycol 3350 17 GM Packet PER TUBE SCH (10:32)
[2022-01-25] MEDS: Calcium Carbonate 600 MG + Vit D TAB PER TUBE SCH (12:00)
[2022-01-25] MEDS ORDERED: Apixaban 5 MG TAB PO SCH (21:00)
[2022-01-26] MEDS: Oxacillin 2 GM VIAL SLOW IVP SCH ×6 (00:10→20:29)
[2022-01-26] MEDS: Morphine 4 MG/ML VIAL SLOW IVP PRN ×5 (04:08→22:31)
[2022-01-26 06:32] LABS: Hemoglobin 7.1 g/dL (14.0-18.0); Mean Corpuscular HGB CONC 34.6 g/dL (32.0-36.0); Mean Corpuscular Hemoglobin 34.8 pg (27.0-31.0); Mean Platelet Volume 7.7 fL (7.4-10.4); Platelet Count 331 thou/uL (130-400); RBC Distribution Width 13.9 % (11.5-14.5); Red Blood Cell (RBC) Count 2.05 mill/uL (4.70-6.10); White Blood Cell (WBC) Count 9.3 thou/uL (4.8-10.8)
[2022-01-26] MEDS: Metoclopramide HCl 10 MG/2 ML VIAL IVP SCH ×3 (06:36→22:31)
[2022-01-26 06:50] LABS: Band 33 % (5-11); Lymphocytes 5 % (21-51); MDiff Complete? YES; Monocytes 2 % (0-10); Neutrophil 60 % (42-75)
[2022-01-26 06:52] LABS: Albumin 1.9 g/dL (3.5-5.0); Anion Gap 19 mmol/L (10-20); BUN (Urea Nitrogen) 90 mg/dL (8.4-25.7); BUN/Creatinine Ratio 18.83; Calc. Creatinine Clearance 20 mL/min (70-130); Calcium 7.3 mg/dL (7.8-10.44); Carbon Dioxide 21 mmol/L (22-29); Chloride 95 mmol/L (98-107); Glucose 134 mg/dL (70-105); Phosphorus 8.4 mg/dL (2.3-4.7); Potassium 4.6 mmol/L (3.5-5.1); Sodium 130 mmol/L (136-145)
[2022-01-26] MEDS: Pantoprazole 40 MG VIAL IVP SCH ×2 (10:17→20:29)
[2022-01-26] MEDS ORDERED: Albumin 25% 25 GM/100 ML BOT IVPB SCH (10:45)
[2022-01-26] MEDS: Sevelamer Carbonate 800 MG TAB PO SCH ×3 (13:36→17:56)
[2022-01-26] MEDS: Polyethylene Glycol 3350 17 GM Packet PER TUBE SCH (13:37)
[2022-01-26] MEDS: Calcium Carbonate 600 MG + Vit D TAB PER TUBE SCH (13:37)
[2022-01-26] MEDS: Senokot S 8.6-50 MG TAB PO SCH ×2 (13:37→20:29)
[2022-01-26] MEDS: Amiodarone 200 MG TAB PO SCH ×2 (14:19→20:29)
[2022-01-26] MEDS: Cholecalciferol 1,000 UNITS (25 MCG) TAB PO SCH (14:42)
[2022-01-26] MEDS: pyridOXINE 50 MG (B6) TAB PO SCH (20:29)
[2022-01-27] MEDS: Oxacillin 2 GM VIAL SLOW IVP SCH ×6 (00:33→20:17)
[2022-01-27] MEDS ORDERED: diphenhydrAMINE 25 MG CAP PO PRN (02:24)
[2022-01-27] MEDS ORDERED: Dextrose 50% Abboject 50 ML SYRINGE SLOW IVP PRN (02:41)
[2022-01-27] MEDS ORDERED: diphenhydrAMINE 50 MG/ML VIAL IVP SCH (02:45)
[2022-01-27] MEDS: Morphine 4 MG/ML VIAL SLOW IVP PRN ×3 (02:57→22:55)
[2022-01-27 03:38] LABS: Reticulocyte Count 3.8 % (0.5-1.5)
[2022-01-27 03:39] LABS: #Lymphocytes 0.4 thou/uL (1.20-3.40); #Monocytes 0.3 thou/uL (0.11-0.59); #Neutrophils 6.3 thou/uL (1.40-6.50); %Basophils 0.3 % (0.0-1.0); %Eosinophils 0.5 % (0.0-10.0); %Lymphocytes 6.1 % (21.0-51.0); %Monocytes 4.3 % (0.0-10.0); %Neutrophils 88.7 % (42.0-75.0); Hemoglobin 8.8 g/dL (14.0-18.0); Mean Corpuscular HGB CONC 32.5 g/dL (32.0-36.0); Mean Corpuscular Volume 98.5 fL (78.0-98.0); Mean Platelet Volume 7.2 fL (7.4-10.4); Platelet Count 287 thou/uL (130-400); RBC Distribution Width 14.6 % (11.5-14.5); Red Blood Cell (RBC) Count 2.76 mill/uL (4.70-6.10); White Blood Cell (WBC) Count 7.1 thou/uL (4.8-10.8)
[2022-01-27 03:57] LABS: Albumin 2.3 g/dL (3.5-5.0); Anion Gap 16 mmol/L (10-20); BUN (Urea Nitrogen) 61 mg/dL (8.4-25.7); BUN/Creatinine Ratio 17.18; Calc. Creatinine Clearance 27 mL/min (70-130); Calcium 7.5 mg/dL (7.8-10.44); Carbon Dioxide 25 mmol/L (22-29); Chloride 98 mmol/L (98-107); Glucose 122 mg/dL (70-105); Iron 33 ug/dL (65-175); Iron Binding Capacity, Total 94 mcg/dL (261-462); Potassium 4.4 mmol/L (3.5-5.1); Sodium 135 mmol/L (136-145)
[2022-01-27 03:58] LABS: Iron 30 ug/dL (65-175); Iron Binding Capacity, Total 98 mcg/dL (261-462)
[2022-01-27] MEDS: Metoclopramide HCl 10 MG/2 ML VIAL IVP SCH ×3 (05:35→22:56)
[2022-01-27] MEDS ORDERED: Cholecalciferol 1,000 UNITS (25 MCG) TAB PO SCH (09:00)
[2022-01-27] MEDS: Pantoprazole 40 MG VIAL IVP SCH ×2 (09:13→20:17)
[2022-01-27] MEDS: Calcium Carbonate 600 MG + Vit D TAB PER TUBE SCH (09:14)
[2022-01-27] MEDS: Sevelamer Carbonate 800 MG TAB PO SCH ×3 (09:15→17:49)
[2022-01-27] MEDS: Ascorbic Acid 500 mg Chewable Tablet PO SCH (09:15)
[2022-01-27] MEDS: Polyethylene Glycol 3350 17 GM Packet PER TUBE SCH (09:15)
[2022-01-27] MEDS: Senokot S 8.6-50 MG TAB PO SCH ×2 (09:15→20:17)
[2022-01-27] MEDS: Cyanocobalamin (Vitamin B-12) 1,000 MCG TAB PO SCH (09:15)
[2022-01-27] MEDS: pyridOXINE 50 MG (B6) TAB PO SCH ×2 (09:15→20:16)
[2022-01-27] MEDS ORDERED: Phenylephrine 10 MG/ML VIAL ONE (10:45)
[2022-01-27] MEDS ORDERED: PROPOFOL 200 MG/20 ML VIAL ONE (10:45)
[2022-01-27] MEDS: Amiodarone 200 MG TAB PO SCH (11:45)
[2022-01-27] MEDS: Epoetin (ESRD) 10,000 UNITS/ML VIAL SC SCH (13:02)
[2022-01-28] MEDS: Oxacillin 2 GM VIAL SLOW IVP SCH ×6 (01:48→21:06)
[2022-01-28] MEDS: Morphine 4 MG/ML VIAL SLOW IVP PRN ×2 (04:47→21:18)
[2022-01-28] MEDS: Metoclopramide HCl 10 MG/2 ML VIAL IVP SCH ×3 (05:02→21:06)
[2022-01-28 05:09] LABS: #Lymphocytes 0.4 thou/uL (1.20-3.40); #Monocytes 0.4 thou/uL (0.11-0.59); %Basophils 0.4 % (0.0-1.0); %Eosinophils 0.4 % (0.0-10.0); %Lymphocytes 4.9 % (21.0-51.0); %Monocytes 4.2 % (0.0-10.0); %Neutrophils 90.2 % (42.0-75.0); Hemoglobin 9.3 g/dL (14.0-18.0); Mean Corpuscular HGB CONC 33.3 g/dL (32.0-36.0); Mean Corpuscular Hemoglobin 32.7 pg (27.0-31.0); Mean Corpuscular Volume 98.2 fL (78.0-98.0); Mean Platelet Volume 7.4 fL (7.4-10.4); Platelet Count 290 thou/uL (130-400); RBC Distribution Width 14.6 % (11.5-14.5); Red Blood Cell (RBC) Count 2.85 mill/uL (4.70-6.10); White Blood Cell (WBC) Count 8.9 thou/uL (4.8-10.8)
[2022-01-28 05:43] LABS: Anion Gap 21 mmol/L (10-20); BUN (Urea Nitrogen) 87 mg/dL (8.4-25.7); BUN/Creatinine Ratio 17.65; Calc. Creatinine Clearance 21 mL/min (70-130); Carbon Dioxide 22 mmol/L (22-29); Chloride 96 mmol/L (98-107); Glucose 117 mg/dL (70-105); Phosphorus 8.4 mg/dL (2.3-4.7); Potassium 4.9 mmol/L (3.5-5.1); Sodium 134 mmol/L (136-145)
[2022-01-28] MEDS: Cyanocobalamin (Vitamin B-12) 1,000 MCG TAB PO SCH (08:12)
[2022-01-28] MEDS: Senokot S 8.6-50 MG TAB PO SCH ×2 (08:12→21:07)
[2022-01-28] MEDS: Ascorbic Acid 500 mg Chewable Tablet PO SCH (08:12)
[2022-01-28] MEDS: Sevelamer Carbonate 800 MG TAB PO SCH ×3 (08:12→14:33)
[2022-01-28] MEDS: pyridOXINE 50 MG (B6) TAB PO SCH ×2 (08:12→21:06)
[2022-01-28] MEDS: Apixaban 5 MG TAB PO SCH ×2 (08:13→21:06)
[2022-01-28] MEDS: Pantoprazole 40 MG VIAL IVP SCH ×2 (08:13→21:07)
[2022-01-28] MEDS: Cholecalciferol 1,000 UNITS (25 MCG) TAB PO SCH (08:13)
[2022-01-28] MEDS: Calcium Carbonate 600 MG + Vit D TAB PER TUBE SCH (08:13)
[2022-01-28] MEDS: Polyethylene Glycol 3350 17 GM Packet PER TUBE SCH (08:13)
[2022-01-28] MEDS ORDERED: Cholecalciferol 10 MCG/ML (Vitamin D3) 50 ML BOT PO SCH (09:00)
[2022-01-29] MEDS: Morphine 4 MG/ML VIAL SLOW IVP PRN ×3 (01:29→21:38)
[2022-01-29] MEDS: Oxacillin 2 GM VIAL SLOW IVP SCH ×6 (01:30→21:32)
[2022-01-29 04:43] LABS: #Lymphocytes 0.6 thou/uL (1.20-3.40); #Monocytes 0.1 thou/uL (0.11-0.59); #Neutrophils 8.2 thou/uL (1.40-6.50); %Basophils 0.3 % (0.0-1.0); %Eosinophils 0.5 % (0.0-10.0); %Lymphocytes 6.3 % (21.0-51.0); %Monocytes 1.5 % (0.0-10.0); %Neutrophils 91.5 % (42.0-75.0); Hemoglobin 9.3 g/dL (14.0-18.0); Mean Corpuscular HGB CONC 32.1 g/dL (32.0-36.0); Mean Corpuscular Hemoglobin 31.8 pg (27.0-31.0); Mean Corpuscular Volume 98.9 fL (78.0-98.0); Mean Platelet Volume 7.5 fL (7.4-10.4); Platelet Count 274 thou/uL (130-400); RBC Distribution Width 14.7 % (11.5-14.5); Red Blood Cell (RBC) Count 2.93 mill/uL (4.70-6.10)
[2022-01-29 05:09] LABS: Albumin 2.2 g/dL (3.5-5.0); Anion Gap 18 mmol/L (10-20); BUN (Urea Nitrogen) 59 mg/dL (8.4-25.7); BUN/Creatinine Ratio 16.08; Calc. Creatinine Clearance 28 mL/min (70-130); Calcium 7.5 mg/dL (7.8-10.44); Carbon Dioxide 25 mmol/L (22-29); Chloride 95 mmol/L (98-107); Glucose 95 mg/dL (70-105); Phosphorus 6.8 mg/dL (2.3-4.7); Potassium 4.3 mmol/L (3.5-5.1); Sodium 134 mmol/L (136-145)
[2022-01-29] MEDS: Metoclopramide HCl 10 MG/2 ML VIAL IVP SCH ×3 (05:37→21:33)
[2022-01-29] MEDS ORDERED: Heparin 10,000 UNITS/ 10 ML VIAL ONE (07:38)
[2022-01-29] MEDS: Sevelamer Carbonate 800 MG TAB PO SCH ×3 (07:58→15:19)
[2022-01-29] MEDS: Cyanocobalamin (Vitamin B-12) 1,000 MCG TAB PO SCH (07:58)
[2022-01-29] MEDS: pyridOXINE 50 MG (B6) TAB PO SCH ×2 (07:58→21:32)
[2022-01-29] MEDS: Pantoprazole 40 MG VIAL IVP SCH ×2 (07:58→21:32)
[2022-01-29] MEDS: Calcium Carbonate 600 MG + Vit D TAB PER TUBE SCH (07:58)
[2022-01-29] MEDS: Ascorbic Acid 500 mg Chewable Tablet PO SCH (07:58)
[2022-01-29] MEDS: Apixaban 5 MG TAB PO SCH ×2 (07:58→21:32)
[2022-01-29] MEDS: Senokot S 8.6-50 MG TAB PO SCH ×2 (07:59→21:32)
[2022-01-29] MEDS: Polyethylene Glycol 3350 17 GM Packet PER TUBE SCH (07:59)
[2022-01-29] MEDS ORDERED: ceFAZolin 2 GM/Dextrose 50 ML 2 GM in Premix Bag 1 BAG IVPB SCH (14:45)
[2022-01-29] MEDS ORDERED: Albumin 25% 25 GM/100 ML BOT IVPB SCH (15:30)
[2022-01-29] MEDS: Epoetin (ESRD) 10,000 UNITS/ML VIAL SC SCH (16:19)
[2022-01-29] MEDS: Amiodarone 200 MG TAB PO SCH (21:32)
[2022-01-30] MEDS: Morphine 4 MG/ML VIAL SLOW IVP PRN ×5 (02:52→20:41)
[2022-01-30] MEDS: Oxacillin 2 GM VIAL SLOW IVP SCH ×6 (02:53→20:38)
[2022-01-30 04:43] LABS: #Lymphocytes 0.4 thou/uL (1.20-3.40); #Monocytes 0.2 thou/uL (0.11-0.59); #Neutrophils 7.6 thou/uL (1.40-6.50); %Basophils 0.1 % (0.0-1.0); %Eosinophils 0.6 % (0.0-10.0); %Lymphocytes 5.2 % (21.0-51.0); %Monocytes 2.7 % (0.0-10.0); %Neutrophils 91.5 % (42.0-75.0); Hemoglobin 8.2 g/dL (14.0-18.0); Mean Corpuscular HGB CONC 32.4 g/dL (32.0-36.0); Mean Corpuscular Hemoglobin 32.4 pg (27.0-31.0); Mean Platelet Volume 7.4 fL (7.4-10.4); Platelet Count 190 thou/uL (130-400); RBC Distribution Width 14.6 % (11.5-14.5); Red Blood Cell (RBC) Count 2.54 mill/uL (4.70-6.10); White Blood Cell (WBC) Count 8.3 thou/uL (4.8-10.8)
[2022-01-30 05:08] LABS: Albumin 2.2 g/dL (3.5-5.0); Anion Gap 18 mmol/L (10-20); BUN (Urea Nitrogen) 76 mg/dL (8.4-25.7); BUN/Creatinine Ratio 16.41; Calc. Creatinine Clearance 22 mL/min (70-130); Calcium 7.3 mg/dL (7.8-10.44); Carbon Dioxide 23 mmol/L (22-29); Chloride 95 mmol/L (98-107); Glucose 140 mg/dL (70-105); Phosphorus 7.2 mg/dL (2.3-4.7); Potassium 4.4 mmol/L (3.5-5.1); Sodium 132 mmol/L (136-145)
[2022-01-30] MEDS: Metoclopramide HCl 10 MG/2 ML VIAL IVP SCH ×3 (05:17→20:38)
[2022-01-30] MEDS ORDERED: Albumin 25% 25 GM/100 ML BOT IVPB SCH (09:15)
[2022-01-30] MEDS: Pantoprazole 40 MG VIAL IVP SCH ×2 (09:18→20:38)
[2022-01-30] MEDS: Apixaban 5 MG TAB PO SCH ×2 (09:21→20:38)
[2022-01-30] MEDS: Amiodarone 200 MG TAB PO SCH ×2 (09:21→20:38)
[2022-01-30] MEDS ORDERED: Albumin 25% 25 GM/100 ML BOT IVPB PRN ×2 (09:34→09:45)
[2022-01-30] MEDS: Senokot S 8.6-50 MG TAB PO SCH ×2 (14:09→20:38)
[2022-01-30] MEDS: Polyethylene Glycol 3350 17 GM Packet PER TUBE SCH (14:09)
[2022-01-30] MEDS: Sevelamer Carbonate 800 MG TAB PO SCH ×3 (14:51→18:36)
[2022-01-30] MEDS: Calcium Carbonate 600 MG + Vit D TAB PER TUBE SCH (14:51)
[2022-01-30] MEDS: Ascorbic Acid 500 mg Chewable Tablet PO SCH (14:52)
[2022-01-30] MEDS: Cyanocobalamin (Vitamin B-12) 1,000 MCG TAB PO SCH (14:52)
[2022-01-30] MEDS: pyridOXINE 50 MG (B6) TAB PO SCH ×2 (14:52→20:38)
[2022-01-30] MEDS: Cholecalciferol 1,000 UNITS (25 MCG) TAB PO SCH (14:59)
[2022-01-30] MEDS: Ergocalciferol 1.25 MG(50,000 UNITS) CAP PO SCH (14:59)
[2022-01-31] MEDS: Oxacillin 2 GM VIAL SLOW IVP SCH ×6 (00:34→20:44)
[2022-01-31] MEDS: Morphine 4 MG/ML VIAL SLOW IVP PRN ×5 (00:34→22:00)
[2022-01-31 04:44] LABS: #Eosinphils 0.1 thou/uL (0.0-0.7); #Lymphocytes 0.4 thou/uL (1.20-3.40); #Monocytes 0.1 thou/uL (0.11-0.59); #Neutrophils 6.4 thou/uL (1.40-6.50); %Basophils 0.2 % (0.0-1.0); %Eosinophils 0.9 % (0.0-10.0); %Lymphocytes 5.8 % (21.0-51.0); %Neutrophils 91.1 % (42.0-75.0); Hemoglobin 8.2 g/dL (14.0-18.0); Mean Corpuscular HGB CONC 32.5 g/dL (32.0-36.0); Mean Corpuscular Hemoglobin 32.8 pg (27.0-31.0); Mean Platelet Volume 7.3 fL (7.4-10.4); Platelet Count 158 thou/uL (130-400); RBC Distribution Width 14.7 % (11.5-14.5); Red Blood Cell (RBC) Count 2.49 mill/uL (4.70-6.10)
[2022-01-31 05:06] LABS: Anion Gap 16 mmol/L (10-20); BUN (Urea Nitrogen) 50 mg/dL (8.4-25.7); Calc. Creatinine Clearance 30 mL/min (70-130); Calcium 7.8 mg/dL (7.8-10.44); Carbon Dioxide 25 mmol/L (22-29); Chloride 98 mmol/L (98-107); Glucose 176 mg/dL (70-105); Potassium 3.9 mmol/L (3.5-5.1); Sodium 135 mmol/L (136-145)
[2022-01-31] MEDS: Metoclopramide HCl 10 MG/2 ML VIAL IVP SCH ×3 (05:16→20:44)
[2022-01-31] MEDS: Pantoprazole 40 MG VIAL IVP SCH ×2 (09:39→20:43)
[2022-01-31] MEDS: Amiodarone 200 MG TAB PO SCH ×2 (09:40→21:58)
[2022-01-31] MEDS: Calcium Carbonate 600 MG + Vit D TAB PER TUBE SCH (09:40)
[2022-01-31] MEDS: Ascorbic Acid 500 mg Chewable Tablet PO SCH (09:40)
[2022-01-31] MEDS: Polyethylene Glycol 3350 17 GM Packet PER TUBE SCH (09:41)
[2022-01-31] MEDS: Cyanocobalamin (Vitamin B-12) 1,000 MCG TAB PO SCH (09:41)
[2022-01-31] MEDS: Sevelamer Carbonate 800 MG TAB PO SCH ×3 (09:41→17:12)
[2022-01-31] MEDS: pyridOXINE 50 MG (B6) TAB PO SCH ×2 (09:42→21:58)
[2022-01-31] MEDS: Senokot S 8.6-50 MG TAB PO SCH ×2 (09:43→20:44)
[2022-01-31] MEDS: Apixaban 5 MG TAB PO SCH (10:28)
[2022-01-31] MEDS: Epoetin (ESRD) 10,000 UNITS/ML VIAL SC SCH (13:28)
[2022-01-31] MEDS: Ondansetron PF 4 MG/2 ML Vial IVP PRN (15:19)
[2022-02-01] MEDS: Oxacillin 2 GM VIAL SLOW IVP SCH ×6 (00:22→21:01)
[2022-02-01] MEDS: diphenhydrAMINE 25 MG CAP PO PRN ×3 (00:34→21:01)
[2022-02-01] MEDS: Morphine 4 MG/ML VIAL SLOW IVP PRN ×4 (04:02→21:03)
[2022-02-01 04:31] LABS: #Eosinphils 0.1 thou/uL (0.0-0.7); #Lymphocytes 0.5 thou/uL (1.20-3.40); #Monocytes 0.3 thou/uL (0.11-0.59); #Neutrophils 9.3 thou/uL (1.40-6.50); %Basophils 0.2 % (0.0-1.0); %Eosinophils 0.7 % (0.0-10.0); %Lymphocytes 5.1 % (21.0-51.0); %Monocytes 2.6 % (0.0-10.0); %Neutrophils 91.4 % (42.0-75.0); Hemoglobin 8.2 g/dL (14.0-18.0); Mean Corpuscular HGB CONC 31.3 g/dL (32.0-36.0); Mean Corpuscular Hemoglobin 31.7 pg (27.0-31.0); Mean Platelet Volume 7.1 fL (7.4-10.4); Platelet Count 181 thou/uL (130-400); RBC Distribution Width 14.7 % (11.5-14.5); Red Blood Cell (RBC) Count 2.59 mill/uL (4.70-6.10); White Blood Cell (WBC) Count 10.2 thou/uL (4.8-10.8)
[2022-02-01 04:50] LABS: Anion Gap 17 mmol/L (10-20); BUN (Urea Nitrogen) 67 mg/dL (8.4-25.7); Calc. Creatinine Clearance 23 mL/min (70-130); Calcium 7.9 mg/dL (7.8-10.44); Carbon Dioxide 23 mmol/L (22-29); Chloride 97 mmol/L (98-107); Glucose 155 mg/dL (70-105); Potassium 4.2 mmol/L (3.5-5.1); Sodium 133 mmol/L (136-145)
[2022-02-01] MEDS: Metoclopramide HCl 10 MG/2 ML VIAL IVP SCH ×3 (05:27→21:03)
[2022-02-01] MEDS: Sevelamer Carbonate 800 MG TAB PO SCH ×3 (08:59→16:46)
[2022-02-01] MEDS: Ascorbic Acid 500 mg Chewable Tablet PO SCH ×2 (09:00→09:01)
[2022-02-01] MEDS: Amiodarone 200 MG TAB PO SCH ×2 (09:00→21:01)
[2022-02-01] MEDS: Calcium Carbonate 600 MG + Vit D TAB PER TUBE SCH (09:00)
[2022-02-01] MEDS: pyridOXINE 50 MG (B6) TAB PO SCH ×2 (09:01→21:01)
[2022-02-01] MEDS: Cyanocobalamin (Vitamin B-12) 1,000 MCG TAB PO SCH (09:01)
[2022-02-01] MEDS: Pantoprazole 40 MG VIAL IVP SCH ×2 (09:01→21:02)
[2022-02-01] MEDS: Senokot S 8.6-50 MG TAB PO SCH ×2 (09:02→22:02)
[2022-02-01] MEDS: Polyethylene Glycol 3350 17 GM Packet PER TUBE SCH (09:02)
[2022-02-02] MEDS: Oxacillin 2 GM VIAL SLOW IVP SCH ×6 (00:43→21:35)
[2022-02-02] MEDS: Metoclopramide HCl 10 MG/2 ML VIAL IVP SCH ×3 (04:58→22:02)
[2022-02-02 08:14] LABS: Anion Gap 18 mmol/L (10-20); BUN (Urea Nitrogen) 79 mg/dL (8.4-25.7); Calc. Creatinine Clearance 21 mL/min (70-130); Carbon Dioxide 21 mmol/L (22-29); Chloride 95 mmol/L (98-107); Glucose 89 mg/dL (70-105); Potassium 4.5 mmol/L (3.5-5.1); Sodium 129 mmol/L (136-145)
[2022-02-02 08:26] LABS: Band 18 % (5-11); Hemoglobin 8.3 g/dL (14.0-18.0); Hypochromia SLIGHT = 6-15 cells (100X) (0-5/hpf); Lymphocytes 2 % (21-51); MDiff Complete? YES; Macrocytosis SLIGHT = 6-15 cells (100X) (0-5/hpf); Mean Corpuscular HGB CONC 31.7 g/dL (32.0-36.0); Mean Corpuscular Hemoglobin 32.1 pg (27.0-31.0); Mean Platelet Volume 7.2 fL (7.4-10.4); Monocytes 2 % (0-10); Neutrophil 78 % (42-75); Platelet Count 188 thou/uL (130-400); Platelet Morphology Comment Appears Adequate; Polychromasia SLIGHT = 2-3 cells (100X) (0-2/hpf); RBC Distribution Width 14.6 % (11.5-14.5); Toxic Granulation SLIGHT; White Blood Cell (WBC) Count 17.5 thou/uL (4.8-10.8)
[2022-02-02] MEDS: Calcium Carbonate 600 MG + Vit D TAB PER TUBE SCH (09:26)
[2022-02-02] MEDS: Sevelamer Carbonate 800 MG TAB PO SCH ×3 (09:26→16:38)
[2022-02-02] MEDS: Amiodarone 200 MG TAB PO SCH ×3 (09:26→22:02)
[2022-02-02] MEDS: Cholecalciferol 1,000 UNITS (25 MCG) TAB PO SCH (09:27)
[2022-02-02] MEDS: pyridOXINE 50 MG (B6) TAB PO SCH ×2 (09:27→22:02)
[2022-02-02] MEDS: Cyanocobalamin (Vitamin B-12) 1,000 MCG TAB PO SCH (09:27)
[2022-02-02] MEDS: Senokot S 8.6-50 MG TAB PO SCH ×2 (09:27→22:09)
[2022-02-02] MEDS: Polyethylene Glycol 3350 17 GM Packet PER TUBE SCH (09:27)
[2022-02-02] MEDS: Pantoprazole 40 MG VIAL IVP SCH ×2 (09:27→22:01)
[2022-02-02] MEDS ORDERED: Heparin 10,000 UNITS/ 10 ML VIAL ONE ×2 (10:00→12:29)
[2022-02-02] MEDS ORDERED: Lidocaine 1% w/Epinephrine 1:100K 20 ML VIAL ONE (12:29)
[2022-02-02] MEDS ORDERED: Bupivacaine PF 0.5% 30 ML VIAL ONE (12:29)
[2022-02-02] MEDS ORDERED: Midazolam HCl 2 mg/2 ml Vial ONE (12:31)
[2022-02-02] MEDS ORDERED: Propofol 500 MG/50 ML VIAL ONE (12:32)
[2022-02-02] MEDS ORDERED: fentaNYL Citrate/PF 100 MCG/2 ML SYRINGE ONE (12:32)
[2022-02-02] MEDS ORDERED: CEFAZOLIN 2 GM VIAL ONE (12:44)
[2022-02-02] MEDS ORDERED: Sodium Chloride 0.9% 100 ML ONE (12:44)
[2022-02-02] MEDS ORDERED: Ondansetron HCl/PF 4 MG/2 ML Vial IVP PRN (13:38)
[2022-02-02] MEDS ORDERED: Promethazine HCl 25 MG/ML VIAL IVPB PRN (13:38)
[2022-02-02] MEDS ORDERED: Promethazine HCl 25 MG/ML VIAL IM PRN (13:38)
[2022-02-03] MEDS: Oxacillin 2 GM VIAL SLOW IVP SCH ×6 (00:18→20:14)
[2022-02-03] MEDS ORDERED: Morphine 4 MG/ML VIAL SLOW IVP SCH (03:30)
[2022-02-03] MEDS: Metoclopramide HCl 10 MG/2 ML VIAL IVP SCH ×3 (05:42→22:45)
[2022-02-03] MEDS: Polyethylene Glycol 3350 17 GM Packet PER TUBE SCH (08:04)
[2022-02-03] MEDS: Senokot S 8.6-50 MG TAB PO SCH ×3 (08:05→20:38)
[2022-02-03] MEDS: Cyanocobalamin (Vitamin B-12) 1,000 MCG TAB PO SCH (08:05)
[2022-02-03] MEDS: Pantoprazole 40 MG VIAL IVP SCH (08:05)
[2022-02-03] MEDS: pyridOXINE 50 MG (B6) TAB PO SCH ×2 (08:06→20:17)
[2022-02-03] MEDS: Sevelamer Carbonate 800 MG TAB PO SCH ×3 (08:06→16:28)
[2022-02-03] MEDS: Calcium Carbonate 600 MG + Vit D TAB PER TUBE SCH (08:06)
[2022-02-03] MEDS: Ascorbic Acid 500 mg Chewable Tablet PO SCH (08:07)
[2022-02-03] MEDS ORDERED: Torsemide 20 MG TAB PO SCH (10:00)
[2022-02-03] MEDS: Epoetin (ESRD) 10,000 UNITS/ML VIAL SC SCH (14:10)
[2022-02-03] MEDS: Amiodarone 200 MG TAB PO SCH (20:16)
[2022-02-03] MEDS: Apixaban 2.5 MG TAB PO SCH (20:17)
[2022-02-03] MEDS: Morphine 4 MG/ML VIAL SLOW IVP PRN (20:34)
[2022-02-04] MEDS: Oxacillin 2 GM VIAL SLOW IVP SCH ×6 (00:55→20:26)
[2022-02-04] MEDS: Morphine 4 MG/ML VIAL SLOW IVP PRN ×3 (01:56→20:30)
[2022-02-04 04:59] LABS: Albumin 1.9 g/dL (3.5-5.0); Anion Gap 17 mmol/L (10-20); BUN (Urea Nitrogen) 62 mg/dL (8.4-25.7); BUN/Creatinine Ratio 13.69; Calc. Creatinine Clearance 0 mL/min (70-130); Calcium 7.9 mg/dL (7.8-10.44); Carbon Dioxide 25 mmol/L (22-29); Chloride 95 mmol/L (98-107); Estimated GFR 15; Glucose 114 mg/dL (70-105); Potassium 4.1 mmol/L (3.5-5.1); Sodium 133 mmol/L (136-145)
[2022-02-04] MEDS: Metoclopramide HCl 10 MG/2 ML VIAL IVP SCH ×3 (05:35→20:44)
[2022-02-04] MEDS: Sevelamer Carbonate 800 MG TAB PO SCH ×3 (08:54→17:20)
[2022-02-04] MEDS: Apixaban 2.5 MG TAB PO SCH ×2 (08:54→20:28)
[2022-02-04] MEDS: Polyethylene Glycol 3350 17 GM Packet PER TUBE SCH (08:54)
[2022-02-04] MEDS: Cyanocobalamin (Vitamin B-12) 1,000 MCG TAB PO SCH (08:55)
[2022-02-04] MEDS: pyridOXINE 50 MG (B6) TAB PO SCH ×2 (08:55→20:26)
[2022-02-04] MEDS: Senokot S 8.6-50 MG TAB PO SCH ×2 (08:55→20:36)
[2022-02-04] MEDS: Amiodarone 200 MG TAB PO SCH ×2 (08:55→20:27)
[2022-02-04] MEDS: Torsemide 20 MG TAB PO SCH (08:55)
[2022-02-04] MEDS: Ascorbic Acid 500 mg Chewable Tablet PO SCH (08:55)
[2022-02-04] MEDS: Calcium Carbonate 600 MG + Vit D TAB PER TUBE SCH (08:57)
[2022-02-04] MEDS: Cholecalciferol 1,000 UNITS (25 MCG) TAB PO SCH (09:00)
[2022-02-04 09:19] LABS: Iron 38 ug/dL (65-175); Iron Binding Capacity, Total 100 mcg/dL (261-462)
[2022-02-04] MEDS ORDERED: Heparin 10,000 UNITS/ 10 ML VIAL ONE (10:54)
[2022-02-04] MEDS: Albumin 25% 25 GM/100 ML BOT IVPB SCH (12:51)
[2022-02-05] MEDS: Oxacillin 2 GM VIAL SLOW IVP SCH ×6 (00:12→20:02)
[2022-02-05] MEDS: Morphine 4 MG/ML VIAL SLOW IVP PRN ×6 (00:48→20:50)
[2022-02-05 05:13] LABS: #Eosinphils 0.1 thou/uL (0.0-0.7); #Lymphocytes 0.8 thou/uL (1.20-3.40); #Monocytes 0.4 thou/uL (0.11-0.59); #Neutrophils 14.6 thou/uL (1.40-6.50); %Basophils 0.2 % (0.0-1.0); %Eosinophils 0.4 % (0.0-10.0); %Monocytes 2.6 % (0.0-10.0); %Neutrophils 91.8 % (42.0-75.0); Mean Corpuscular HGB CONC 31.7 g/dL (32.0-36.0); Mean Corpuscular Hemoglobin 32.1 pg (27.0-31.0); Mean Platelet Volume 6.7 fL (7.4-10.4); Platelet Count 240 thou/uL (130-400); RBC Distribution Width 14.9 % (11.5-14.5); Red Blood Cell (RBC) Count 2.19 mill/uL (4.70-6.10); White Blood Cell (WBC) Count 15.9 thou/uL (4.8-10.8)
[2022-02-05] MEDS: Metoclopramide HCl 10 MG/2 ML VIAL IVP SCH ×3 (05:19→20:50)
[2022-02-05 05:31] LABS: Albumin 2.3 g/dL (3.5-5.0); Anion Gap 14 mmol/L (10-20); BUN (Urea Nitrogen) 31 mg/dL (8.4-25.7); BUN/Creatinine Ratio 11.07; Calc. Creatinine Clearance 36 mL/min (70-130); Calcium 8.1 mg/dL (7.8-10.44); Carbon Dioxide 29 mmol/L (22-29); Chloride 98 mmol/L (98-107); Estimated GFR 26; Glucose 117 mg/dL (70-105); Phosphorus 4.4 mg/dL (2.3-4.7); Potassium 3.7 mmol/L (3.5-5.1); Sodium 137 mmol/L (136-145)
[2022-02-05] MEDS: Albumin 25% 25 GM/100 ML BOT IVPB SCH (08:48)
[2022-02-05] MEDS: Senokot S 8.6-50 MG TAB PO SCH ×2 (09:14→20:05)
[2022-02-05] MEDS: Polyethylene Glycol 3350 17 GM Packet PER TUBE SCH (09:14)
[2022-02-05] MEDS: Apixaban 2.5 MG TAB PO SCH ×2 (09:26→20:03)
[2022-02-05] MEDS: Amiodarone 200 MG TAB PO SCH ×2 (09:26→20:03)
[2022-02-05] MEDS: Torsemide 20 MG TAB PO SCH (09:29)
[2022-02-05] MEDS: pyridOXINE 50 MG (B6) TAB PO SCH ×2 (09:29→20:03)
[2022-02-05] MEDS: Ascorbic Acid 500 mg Chewable Tablet PO SCH (09:30)
[2022-02-05] MEDS: Epoetin (ESRD) 10,000 UNITS/ML VIAL SC SCH (09:32)
[2022-02-05] MEDS: Calcium Carbonate 600 MG + Vit D TAB PER TUBE SCH (09:32)
[2022-02-05] MEDS: Cyanocobalamin (Vitamin B-12) 1,000 MCG TAB PO SCH (09:32)
[2022-02-05] MEDS: Sevelamer Carbonate 800 MG TAB PO SCH ×3 (12:52→18:21)
[2022-02-05] MEDS ORDERED: oxyCODONE 5 MG TAB PO PRN (17:05)
[2022-02-06] MEDS: Oxacillin 2 GM VIAL SLOW IVP SCH ×6 (00:33→21:14)
[2022-02-06] MEDS: Morphine 4 MG/ML VIAL SLOW IVP PRN ×3 (03:04→21:19)
[2022-02-06] MEDS: Metoclopramide HCl 10 MG/2 ML VIAL IVP SCH ×3 (04:46→21:18)
[2022-02-06 05:07] LABS: Anion Gap 16 mmol/L (10-20); BUN (Urea Nitrogen) 45 mg/dL (8.4-25.7); BUN/Creatinine Ratio 11.81; Calc. Creatinine Clearance 26 mL/min (70-130); Calcium 8.1 mg/dL (7.8-10.44); Carbon Dioxide 27 mmol/L (22-29); Chloride 96 mmol/L (98-107); Estimated GFR 18; Glucose 142 mg/dL (70-105); Phosphorus 5.7 mg/dL (2.3-4.7); Sodium 135 mmol/L (136-145)
[2022-02-06 09:30] LABS: Mean Corpuscular HGB CONC 33.2 g/dL (32.0-36.0); Mean Corpuscular Hemoglobin 31.9 pg (27.0-31.0); Mean Corpuscular Volume 96.1 fL (78.0-98.0); Mean Platelet Volume 6.6 fL (7.4-10.4); Platelet Count 280 thou/uL (130-400); RBC Distribution Width 15.6 % (11.5-14.5); Red Blood Cell (RBC) Count 3.13 mill/uL (4.70-6.10); White Blood Cell (WBC) Count 21.6 thou/uL (4.8-10.8)
[2022-02-06] MEDS: Sevelamer Carbonate 800 MG TAB PO SCH ×3 (11:56→16:51)
[2022-02-06] MEDS: pyridOXINE 50 MG (B6) TAB PO SCH ×2 (11:57→21:18)
[2022-02-06] MEDS: Apixaban 2.5 MG TAB PO SCH ×2 (11:57→21:18)
[2022-02-06] MEDS: Senokot S 8.6-50 MG TAB PO SCH ×2 (11:57→21:18)
[2022-02-06] MEDS: Calcium Carbonate 600 MG + Vit D TAB PER TUBE SCH (15:07)
[2022-02-06] MEDS: Ergocalciferol 1.25 MG(50,000 UNITS) CAP PO SCH ×2 (15:07→15:11)
[2022-02-06] MEDS: Amiodarone 200 MG TAB PO SCH (15:08)
[2022-02-06] MEDS: Ascorbic Acid 500 mg Chewable Tablet PO SCH (15:08)
[2022-02-06] MEDS: Polyethylene Glycol 3350 17 GM Packet PER TUBE SCH (15:08)
[2022-02-06] MEDS: Cholecalciferol 1,000 UNITS (25 MCG) TAB PO SCH (15:08)
[2022-02-06] MEDS: Cyanocobalamin (Vitamin B-12) 1,000 MCG TAB PO SCH (15:08)
[2022-02-06] MEDS: Torsemide 20 MG TAB PO SCH (15:33)
[2022-02-07] MEDS: Oxacillin 2 GM VIAL SLOW IVP SCH ×6 (01:32→21:20)
[2022-02-07] MEDS: Morphine 4 MG/ML VIAL SLOW IVP PRN ×4 (01:41→21:33)
[2022-02-07] MEDS: Metoclopramide HCl 10 MG/2 ML VIAL IVP SCH ×3 (05:31→21:21)
[2022-02-07 06:29] LABS: Hemoglobin 9.9 g/dL (14.0-18.0); Mean Corpuscular HGB CONC 32.1 g/dL (32.0-36.0); Mean Corpuscular Hemoglobin 31.6 pg (27.0-31.0); Mean Corpuscular Volume 98.3 fL (78.0-98.0); Mean Platelet Volume 6.6 fL (7.4-10.4); Platelet Count 313 thou/uL (130-400); RBC Distribution Width 16.1 % (11.5-14.5); Red Blood Cell (RBC) Count 3.12 mill/uL (4.70-6.10); White Blood Cell (WBC) Count 22.8 thou/uL (4.8-10.8)
[2022-02-07 06:59] LABS: Albumin 2.1 g/dL (3.5-5.0); Anion Gap 13 mmol/L (10-20); BUN (Urea Nitrogen) 30 mg/dL (8.4-25.7); BUN/Creatinine Ratio 10.42; Calc. Creatinine Clearance 35 mL/min (70-130); Calcium 8.5 mg/dL (7.8-10.44); Carbon Dioxide 28 mmol/L (22-29); Chloride 98 mmol/L (98-107); Estimated GFR 25; Glucose 139 mg/dL (70-105); Phosphorus 4.5 mg/dL (2.3-4.7); Potassium 3.9 mmol/L (3.5-5.1); Sodium 135 mmol/L (136-145)
[2022-02-07] MEDS ORDERED: Heparin 10,000 UNITS/ 10 ML VIAL ONE (09:47)
[2022-02-07] MEDS: Epoetin (ESRD) 10,000 UNITS/ML VIAL SC SCH (10:13)
[2022-02-07] MEDS: Sevelamer Carbonate 800 MG TAB PO SCH ×3 (10:16→17:10)
[2022-02-07] MEDS: Cyanocobalamin (Vitamin B-12) 1,000 MCG TAB PO SCH (10:16)
[2022-02-07] MEDS: pyridOXINE 50 MG (B6) TAB PO SCH ×2 (10:16→21:20)
[2022-02-07] MEDS: Spironolactone 100 MG TAB PO SCH (10:17)
[2022-02-07] MEDS: Ascorbic Acid 500 mg Chewable Tablet PO SCH (10:17)
[2022-02-07] MEDS: Calcium Carbonate 600 MG + Vit D TAB PER TUBE SCH (10:17)
[2022-02-07] MEDS: Amiodarone 200 MG TAB PO SCH (10:17)
[2022-02-07] MEDS: Apixaban 2.5 MG TAB PO SCH ×2 (10:18→21:20)
[2022-02-07] MEDS: Senokot S 8.6-50 MG TAB PO SCH ×2 (10:18→21:21)
[2022-02-07] MEDS: Polyethylene Glycol 3350 17 GM Packet PER TUBE SCH (10:39)
[2022-02-07] MEDS: Torsemide 100 MG TAB PO SCH (10:48)
[2022-02-07] MEDS ORDERED: Albumin 25% 25 GM/100 ML BOT IVPB SCH (14:45)
[2022-02-08] MEDS: Oxacillin 2 GM VIAL SLOW IVP SCH ×6 (01:33→20:34)
[2022-02-08] MEDS: Morphine 4 MG/ML VIAL SLOW IVP PRN ×4 (05:35→17:44)
[2022-02-08] MEDS: Metoclopramide HCl 10 MG/2 ML VIAL IVP SCH ×3 (05:35→20:41)
[2022-02-08] MEDS: Sevelamer Carbonate 800 MG TAB PO SCH ×3 (09:18→17:43)
[2022-02-08] MEDS: Calcium Carbonate 600 MG + Vit D TAB PER TUBE SCH (09:18)
[2022-02-08] MEDS: Spironolactone 100 MG TAB PO SCH (09:19)
[2022-02-08] MEDS: Ascorbic Acid 500 mg Chewable Tablet PO SCH (09:19)
[2022-02-08] MEDS: Amiodarone 200 MG TAB PO SCH (09:19)
[2022-02-08] MEDS: pyridOXINE 50 MG (B6) TAB PO SCH ×2 (09:19→20:34)
[2022-02-08] MEDS: Apixaban 2.5 MG TAB PO SCH ×2 (09:19→20:40)
[2022-02-08] MEDS: Cyanocobalamin (Vitamin B-12) 1,000 MCG TAB PO SCH (09:19)
[2022-02-08] MEDS: Torsemide 100 MG TAB PO SCH (09:19)
[2022-02-08] MEDS: Polyethylene Glycol 3350 17 GM Packet PER TUBE SCH (09:20)
[2022-02-08] MEDS: Senokot S 8.6-50 MG TAB PO SCH ×2 (09:20→20:34)
[2022-02-09] MEDS: Oxacillin 2 GM VIAL SLOW IVP SCH ×4 (01:59→13:16)
[2022-02-09] MEDS: Morphine 4 MG/ML VIAL SLOW IVP PRN ×2 (02:11→11:24)
[2022-02-09] MEDS: diphenhydrAMINE 25 MG CAP PO PRN (04:18)
[2022-02-09 04:42] LABS: Hemoglobin 8.4 g/dL (14.0-18.0); Mean Corpuscular HGB CONC 32.2 g/dL (32.0-36.0); Mean Corpuscular Hemoglobin 32.2 pg (27.0-31.0); Mean Platelet Volume 6.4 fL (7.4-10.4); Platelet Count 344 thou/uL (130-400); RBC Distribution Width 17.2 % (11.5-14.5); Red Blood Cell (RBC) Count 2.62 mill/uL (4.70-6.10); White Blood Cell (WBC) Count 28.4 thou/uL (4.8-10.8)
[2022-02-09 05:45] LABS: Anion Gap 17 mmol/L (10-20); BUN (Urea Nitrogen) 55 mg/dL (8.4-25.7); CRP (Inflammatory) 11.91 mg/dL (= or < 0.5); Calc. Creatinine Clearance 23 mL/min (70-130); Calcium 8.5 mg/dL (7.8-10.44); Carbon Dioxide 26 mmol/L (22-29); Chloride 96 mmol/L (98-107); Estimated GFR 15; Glucose 106 mg/dL (70-105); Potassium 4.3 mmol/L (3.5-5.1); Sodium 135 mmol/L (136-145)
[2022-02-09] MEDS: Metoclopramide HCl 10 MG/2 ML VIAL IVP SCH ×3 (06:01→20:20)
[2022-02-09 06:25] LABS: Band 2 % (5-11); Lymphocytes 2 % (21-51); MDiff Complete? YES; Monocytes 6 % (0-10); Neutrophil 90 % (42-75)
[2022-02-09] MEDS: Apixaban 2.5 MG TAB PO SCH ×2 (08:40→20:17)
[2022-02-09] MEDS: Calcium Carbonate 600 MG + Vit D TAB PER TUBE SCH (08:40)
[2022-02-09] MEDS: pyridOXINE 50 MG (B6) TAB PO SCH ×2 (08:40→20:07)
[2022-02-09] MEDS: Amiodarone 200 MG TAB PO SCH (08:40)
[2022-02-09] MEDS: Senokot S 8.6-50 MG TAB PO SCH ×2 (08:40→20:07)
[2022-02-09] MEDS: Sevelamer Carbonate 800 MG TAB PO SCH ×3 (08:40→18:14)
[2022-02-09] MEDS: Cyanocobalamin (Vitamin B-12) 1,000 MCG TAB PO SCH (08:40)
[2022-02-09] MEDS: Ascorbic Acid 500 mg Chewable Tablet PO SCH (08:40)
[2022-02-09] MEDS: Spironolactone 100 MG TAB PO SCH (08:40)
[2022-02-09] MEDS: Polyethylene Glycol 3350 17 GM Packet PER TUBE SCH (08:41)
[2022-02-09] MEDS: Cholecalciferol 1,000 UNITS (25 MCG) TAB PO SCH (08:46)
[2022-02-09] MEDS: Torsemide 100 MG TAB PO SCH (09:44)
[2022-02-09] MEDS ORDERED: Heparin 10,000 UNITS/ 10 ML VIAL ONE (09:49)
[2022-02-09 11:34] VITALS: BMI 27.6
[2022-02-09 12:55] LABS: Complement-C4 17.2 mg/dL (15-53)
[2022-02-09 13:12] LABS: Bilirubin Negative (Negative); Blood, Urine 3+ (Negative); Clarity Turbid (Clear); Glucose, Urine (Dipstick) Normal (Negative); Ketone, Urine Negative (Negative); Leukocyte 500 Leu/uL (Negative); Nitrite Negative (Negative); Protein, Urine (Dipstick) 30 mg/dL (Neg-Trace); Urobilinogen Normal mg/dL (Less than 2); pH, Urine 5.5 (5.0-9.0)
[2022-02-09 13:17] LABS: Bacteria/HPF 1+ HPF (None Seen); Squamous Epithelial 0-3 HPF (0-3); Yeast-Budding 1+ HPF (None Seen); Yeast-Hyphae 1+ HPF (None Seen)
[2022-02-09 13:25] LABS: Creatinine, Urine 26.43 mg/dL (63-166)
[2022-02-09] MEDS: CEFAZOLIN 2 GM in Sodium Chloride 0.9% 100 ML IVPB SCH (20:06)
[2022-02-10] MEDS: Morphine 4 MG/ML VIAL SLOW IVP PRN ×3 (01:40→20:20)
[2022-02-10] MEDS: Metoclopramide HCl 10 MG/2 ML VIAL IVP SCH ×3 (04:41→21:00)
[2022-02-10 04:55] LABS: #Basophils 0.1 thou/uL (0.0-0.2); #Monocytes 0.5 thou/uL (0.11-0.59); #Neutrophils 19.6 thou/uL (1.40-6.50); %Basophils 0.3 % (0.0-1.0); %Eosinophils 0.2 % (0.0-10.0); %Lymphocytes 4.6 % (21.0-51.0); %Monocytes 2.4 % (0.0-10.0); %Neutrophils 92.6 % (42.0-75.0); Hemoglobin 8.3 g/dL (14.0-18.0); Mean Corpuscular HGB CONC 31.7 g/dL (32.0-36.0); Mean Platelet Volume 6.3 fL (7.4-10.4); Platelet Count 376 thou/uL (130-400); RBC Distribution Width 17.2 % (11.5-14.5); Red Blood Cell (RBC) Count 2.58 mill/uL (4.70-6.10); White Blood Cell (WBC) Count 21.2 thou/uL (4.8-10.8)
[2022-02-10 05:17] LABS: Anion Gap 16 mmol/L (10-20); BUN (Urea Nitrogen) 31 mg/dL (8.4-25.7); CRP (Inflammatory) 11.36 mg/dL (= or < 0.5); Calc. Creatinine Clearance 35 mL/min (70-130); Calcium 8.3 mg/dL (7.8-10.44); Carbon Dioxide 27 mmol/L (22-29); Chloride 96 mmol/L (98-107); Estimated GFR 25; Glucose 95 mg/dL (70-105); Potassium 3.9 mmol/L (3.5-5.1); Sodium 135 mmol/L (136-145)
[2022-02-10] MEDS: Ascorbic Acid 500 mg Chewable Tablet PO SCH (08:32)
[2022-02-10] MEDS: pyridOXINE 50 MG (B6) TAB PO SCH ×2 (08:33→20:19)
[2022-02-10] MEDS: Cyanocobalamin (Vitamin B-12) 1,000 MCG TAB PO SCH (08:33)
[2022-02-10] MEDS: Senokot S 8.6-50 MG TAB PO SCH ×2 (08:33→20:20)
[2022-02-10] MEDS: Amiodarone 200 MG TAB PO SCH (08:33)
[2022-02-10] MEDS: Apixaban 2.5 MG TAB PO SCH (08:33)
[2022-02-10] MEDS: Spironolactone 100 MG TAB PO SCH (08:33)
[2022-02-10] MEDS: Sevelamer Carbonate 800 MG TAB PO SCH ×3 (08:33→18:24)
[2022-02-10] MEDS: Calcium Carbonate 600 MG + Vit D TAB PER TUBE SCH (08:34)
[2022-02-10] MEDS: Polyethylene Glycol 3350 17 GM Packet PER TUBE SCH (08:36)
[2022-02-10] MEDS ORDERED: CEFAZOLIN 2 GM VIAL IVPB SCH (09:00)
[2022-02-10] MEDS: Torsemide 100 MG TAB PO SCH (11:48)
[2022-02-10] MEDS: CEFAZOLIN 2 GM in Sodium Chloride 0.9% 100 ML IVPB SCH (13:04)
[2022-02-10] MEDS: Epoetin (ESRD) 10,000 UNITS/ML VIAL SC SCH (13:04)
[2022-02-10] MEDS: Guaifenesin DM 100-10/5 ML UDCUP PO PRN (15:06)
[2022-02-10] MEDS: Apixaban 5 MG TAB PO SCH (20:19)
[2022-02-11] MEDS: Guaifenesin DM 100-10/5 ML UDCUP PO PRN ×3 (05:18→20:27)
[2022-02-11] MEDS: Metoclopramide HCl 10 MG/2 ML VIAL IVP SCH ×3 (05:20→21:09)
[2022-02-11] MEDS: Polyethylene Glycol 3350 17 GM Packet PER TUBE SCH (07:01)
[2022-02-11 07:52] LABS: Anion Gap 13 mmol/L (10-20); BUN (Urea Nitrogen) 43 mg/dL (8.4-25.7); CRP (Inflammatory) 10.69 mg/dL (= or < 0.5); Calc. Creatinine Clearance 28 mL/min (70-130); Calcium 8.3 mg/dL (7.8-10.44); Carbon Dioxide 28 mmol/L (22-29); Chloride 94 mmol/L (98-107); Estimated GFR 19; Glucose 134 mg/dL (70-105); Potassium 4.1 mmol/L (3.5-5.1); Sodium 131 mmol/L (136-145)
[2022-02-11] MEDS: Apixaban 5 MG TAB PO SCH ×2 (08:08→20:26)
[2022-02-11] MEDS: pyridOXINE 50 MG (B6) TAB PO SCH ×3 (08:08→20:27)
[2022-02-11] MEDS: Sevelamer Carbonate 800 MG TAB PO SCH ×4 (08:08→16:12)
[2022-02-11] MEDS: Senokot S 8.6-50 MG TAB PO SCH ×2 (08:08→20:26)
[2022-02-11 08:32] LABS: Hemoglobin 8.1 g/dL (14.0-18.0); Mean Corpuscular Hemoglobin 32.7 pg (27.0-31.0); Mean Corpuscular Volume 99.1 fL (78.0-98.0); Mean Platelet Volume 6.2 fL (7.4-10.4); Platelet Count 397 thou/uL (130-400); Red Blood Cell (RBC) Count 2.47 mill/uL (4.70-6.10); White Blood Cell (WBC) Count 20.8 thou/uL (4.8-10.8)
[2022-02-11] MEDS ORDERED: Heparin 10,000 UNITS/ 10 ML VIAL ONE (09:40)
[2022-02-11 10:02] LABS: Band 10 % (5-11); Lymphocytes 10 % (21-51); MDiff Complete? YES; Monocytes 5 % (0-10); Neutrophil 75 % (42-75); Platelet Morphology Comment Appears Adequate; Polychromasia SLIGHT = 2-3 cells (100X) (0-2/hpf)
[2022-02-11 10:35] LABS: HBSAg Index 0.31 S/CO (0-0.99); Hep B Surf Ag Non-Reactive S/CO (NonReactive)
[2022-02-11] MEDS: CEFAZOLIN 2 GM in Sodium Chloride 0.9% 100 ML IVPB SCH (13:53)
[2022-02-11] MEDS: Ascorbic Acid 500 mg Chewable Tablet PO SCH (13:54)
[2022-02-11] MEDS: Cyanocobalamin (Vitamin B-12) 1,000 MCG TAB PO SCH (13:54)
[2022-02-11] MEDS: Spironolactone 100 MG TAB PO SCH (13:54)
[2022-02-11] MEDS: Cholecalciferol 1,000 UNITS (25 MCG) TAB PO SCH (13:54)
[2022-02-11] MEDS: Calcium Carbonate 600 MG + Vit D TAB PER TUBE SCH (13:54)
[2022-02-11] MEDS: Amiodarone 200 MG TAB PO SCH (13:55)
[2022-02-11] MEDS: Torsemide 100 MG TAB PO SCH (13:55)
[2022-02-11] MEDS: Morphine 4 MG/ML VIAL SLOW IVP PRN (13:58)
[2022-02-12] MEDS: Metoclopramide HCl 10 MG/2 ML VIAL IVP SCH ×3 (05:38→21:11)
[2022-02-12] MEDS: Apixaban 5 MG TAB PO SCH ×2 (07:41→20:41)
[2022-02-12] MEDS: Ascorbic Acid 500 mg Chewable Tablet PO SCH (07:41)
[2022-02-12] MEDS: Amiodarone 200 MG TAB PO SCH (07:41)
[2022-02-12] MEDS: Spironolactone 100 MG TAB PO SCH (07:41)
[2022-02-12] MEDS: Senokot S 8.6-50 MG TAB PO SCH ×2 (07:41→20:41)
[2022-02-12] MEDS: pyridOXINE 50 MG (B6) TAB PO SCH ×2 (07:41→20:41)
[2022-02-12] MEDS: Polyethylene Glycol 3350 17 GM Packet PER TUBE SCH (07:41)
[2022-02-12] MEDS: Cyanocobalamin (Vitamin B-12) 1,000 MCG TAB PO SCH (07:42)
[2022-02-12] MEDS: Sevelamer Carbonate 800 MG TAB PO SCH ×3 (07:42→16:44)
[2022-02-12] MEDS: Calcium Carbonate 600 MG + Vit D TAB PER TUBE SCH (07:42)
[2022-02-12] MEDS: Torsemide 100 MG TAB PO SCH (12:13)
[2022-02-12] MEDS: CEFAZOLIN 2 GM in Sodium Chloride 0.9% 100 ML IVPB SCH (13:44)
[2022-02-12] MEDS: Epoetin (ESRD) 10,000 UNITS/ML VIAL SC SCH (14:18)
[2022-02-12] MEDS: Guaifenesin DM 100-10/5 ML UDCUP PO PRN (20:41)
[2022-02-13] MEDS: Morphine 4 MG/ML VIAL SLOW IVP PRN ×2 (02:43→09:55)
[2022-02-13] MEDS: Metoclopramide HCl 10 MG/2 ML VIAL IVP SCH ×3 (05:17→20:16)
[2022-02-13 05:50] LABS: Hemoglobin 8.1 g/dL (14.0-18.0); Mean Corpuscular HGB CONC 30.9 g/dL (32.0-36.0); Mean Corpuscular Hemoglobin 31.9 pg (27.0-31.0); Platelet Count 431 thou/uL (130-400); RBC Distribution Width 17.7 % (11.5-14.5); Red Blood Cell (RBC) Count 2.53 mill/uL (4.70-6.10); White Blood Cell (WBC) Count 19.3 thou/uL (4.8-10.8)
[2022-02-13 06:27] LABS: Anion Gap 13 mmol/L (10-20); BUN (Urea Nitrogen) 33 mg/dL (8.4-25.7); BUN/Creatinine Ratio 10.28; Calc. Creatinine Clearance 31 mL/min (70-130); Calcium 8.6 mg/dL (7.8-10.44); Carbon Dioxide 29 mmol/L (22-29); Chloride 95 mmol/L (98-107); Estimated GFR 22; Glucose 133 mg/dL (70-105); Phosphorus 4.8 mg/dL (2.3-4.7); Sodium 133 mmol/L (136-145)
[2022-02-13] MEDS: Polyethylene Glycol 3350 17 GM Packet PER TUBE SCH (07:55)
[2022-02-13] MEDS: pyridOXINE 50 MG (B6) TAB PO SCH ×2 (07:55→20:17)
[2022-02-13] MEDS: Sevelamer Carbonate 800 MG TAB PO SCH ×3 (07:55→17:05)
[2022-02-13] MEDS: Ascorbic Acid 500 mg Chewable Tablet PO SCH (07:55)
[2022-02-13] MEDS: Calcium Carbonate 600 MG + Vit D TAB PER TUBE SCH (07:56)
[2022-02-13] MEDS: Apixaban 5 MG TAB PO SCH ×2 (07:56→20:17)
[2022-02-13] MEDS: Cyanocobalamin (Vitamin B-12) 1,000 MCG TAB PO SCH (07:56)
[2022-02-13] MEDS: Senokot S 8.6-50 MG TAB PO SCH ×2 (07:56→20:17)
[2022-02-13] MEDS: Spironolactone 100 MG TAB PO SCH (07:56)
[2022-02-13] MEDS: Amiodarone 200 MG TAB PO SCH (07:56)
[2022-02-13] MEDS: Ergocalciferol 1.25 MG(50,000 UNITS) CAP PO SCH (07:59)
[2022-02-13] MEDS: Cholecalciferol 1,000 UNITS (25 MCG) TAB PO SCH (08:13)
[2022-02-13] MEDS: Torsemide 100 MG TAB PO SCH (08:15)
[2022-02-13] MEDS: CEFAZOLIN 2 GM in Sodium Chloride 0.9% 100 ML IVPB SCH (13:57)
[2022-02-13 14:19] LABS: ANA Symphony (Qualitative) Negative (Negative); ANA Symphony (Quantitative) 0.5 Ratio (< 0.7 Negative); dsDNA IgG Antibody 2.2 IU/mL (<10 Negative)
[2022-02-13] MEDS: Guaifenesin DM 100-10/5 ML UDCUP PO PRN (15:20)
[2022-02-13] MEDS ORDERED: HYDROcodone/Acetaminophen 5/325 mg Tablet PO SCH (20:15)
[2022-02-14] MEDS: Guaifenesin DM 100-10/5 ML UDCUP PO PRN ×3 (05:07→22:03)
[2022-02-14] MEDS: Metoclopramide HCl 10 MG/2 ML VIAL IVP SCH ×3 (05:08→21:01)
[2022-02-14] MEDS: Calcium Carbonate 600 MG + Vit D TAB PER TUBE SCH (08:47)
[2022-02-14] MEDS: Sevelamer Carbonate 800 MG TAB PO SCH ×3 (08:47→16:17)
[2022-02-14] MEDS: Polyethylene Glycol 3350 17 GM Packet PER TUBE SCH ×2 (08:48→16:49)
[2022-02-14] MEDS: Ascorbic Acid 500 mg Chewable Tablet PO SCH (08:48)
[2022-02-14] MEDS: Cyanocobalamin (Vitamin B-12) 1,000 MCG TAB PO SCH (08:48)
[2022-02-14] MEDS: pyridOXINE 50 MG (B6) TAB PO SCH ×2 (08:49→20:59)
[2022-02-14] MEDS: Amiodarone 200 MG TAB PO SCH (08:49)
[2022-02-14] MEDS: Spironolactone 100 MG TAB PO SCH (08:49)
[2022-02-14] MEDS: Apixaban 5 MG TAB PO SCH ×2 (08:50→20:59)
[2022-02-14] MEDS: Senokot S 8.6-50 MG TAB PO SCH ×3 (08:50→20:59)
[2022-02-14] MEDS: Epoetin (ESRD) 10,000 UNITS/ML VIAL SC SCH (09:42)
[2022-02-14] MEDS: Torsemide 100 MG TAB PO SCH (09:43)
[2022-02-14] MEDS: CEFAZOLIN 2 GM in Sodium Chloride 0.9% 100 ML IVPB SCH (13:26)
[2022-02-14] MEDS ORDERED: traMADol HCl 50 MG TAB PO PRN (15:05)
[2022-02-14] MEDS: HYDROcodone/Acetaminophen 10/325 mg Tablet PO PRN ×2 (16:16→22:03)
[2022-02-15] MEDS: Metoclopramide HCl 10 MG/2 ML VIAL IVP SCH ×3 (05:42→21:12)
[2022-02-15 07:07] LABS: Band 6 % (5-11); Hemoglobin 8.5 g/dL (14.0-18.0); Hypochromia SLIGHT = 6-15 cells (100X) (0-5/hpf); Lymphocytes 10 % (21-51); MDiff Complete? YES; Mean Corpuscular HGB CONC 32.4 g/dL (32.0-36.0); Monocytes 11 % (0-10); Neutrophil 73 % (42-75); Platelet Count 535 thou/uL (130-400); Platelet Morphology Comment Appears Increased; RBC Distribution Width 17.4 % (11.5-14.5); Red Blood Cell (RBC) Count 2.59 mill/uL (4.70-6.10); White Blood Cell (WBC) Count 20.3 thou/uL (4.8-10.8)
[2022-02-15 07:17] LABS: ALT (SGPT) Less than 7 U/L (8-55); AST (SGOT) 23 U/L (5-34); Albumin 2.2 g/dL (3.5-5.0); Alkaline Phosphatase 118 U/L (40-110); Anion Gap 13 mmol/L (10-20); BUN (Urea Nitrogen) 30 mg/dL (8.4-25.7); Bilirubin, Total 0.4 mg/dL (0.2-1.2); Calc. Creatinine Clearance 35 mL/min (70-130); Calcium 8.9 mg/dL (7.8-10.44); Carbon Dioxide 30 mmol/L (22-29); Chloride 95 mmol/L (98-107); Estimated GFR 26; Globulin 4.4 g/dL (2.4-3.5); Glucose 144 mg/dL (70-105); Potassium 3.7 mmol/L (3.5-5.1); Protein, Total 6.6 g/dL (6.0-8.3); Sodium 134 mmol/L (136-145)
[2022-02-15] MEDS: Amiodarone 200 MG TAB PO SCH (08:52)
[2022-02-15] MEDS: Calcium Carbonate 600 MG + Vit D TAB PER TUBE SCH (08:52)
[2022-02-15] MEDS: Sevelamer Carbonate 800 MG TAB PO SCH ×3 (08:52→18:35)
[2022-02-15] MEDS: Ascorbic Acid 500 mg Chewable Tablet PO SCH (08:53)
[2022-02-15] MEDS: pyridOXINE 50 MG (B6) TAB PO SCH ×2 (08:54→21:12)
[2022-02-15] MEDS: Cyanocobalamin (Vitamin B-12) 1,000 MCG TAB PO SCH (08:54)
[2022-02-15] MEDS: Spironolactone 100 MG TAB PO SCH (08:54)
[2022-02-15] MEDS: Apixaban 5 MG TAB PO SCH ×2 (08:54→21:12)
[2022-02-15] MEDS: Senokot S 8.6-50 MG TAB PO SCH ×2 (08:55→21:12)
[2022-02-15] MEDS: Polyethylene Glycol 3350 17 GM Packet PER TUBE SCH (08:55)
[2022-02-15] MEDS: Torsemide 100 MG TAB PO SCH (08:55)
[2022-02-15] MEDS: Guaifenesin DM 100-10/5 ML UDCUP PO PRN ×2 (08:56→15:54)
[2022-02-15] MEDS: CEFAZOLIN 2 GM in Sodium Chloride 0.9% 100 ML IVPB SCH (14:03)
[2022-02-15] MEDS: HYDROcodone/Acetaminophen 10/325 mg Tablet PO PRN (18:40)
[2022-02-15] MEDS: Lansoprazole 3 MG/ML ORAL SUSPENSION PER TUBE SCH (21:12)
[2022-02-16] MEDS: HYDROcodone/Acetaminophen 10/325 mg Tablet PO PRN ×2 (05:49→19:37)
[2022-02-16] MEDS: Metoclopramide HCl 10 MG/2 ML VIAL IVP SCH ×2 (05:49→13:55)
[2022-02-16] MEDS: Guaifenesin DM 100-10/5 ML UDCUP PO PRN ×3 (06:03→19:46)
[2022-02-16] MEDS: Polyethylene Glycol 3350 17 GM Packet PER TUBE SCH (08:23)
[2022-02-16] MEDS: Apixaban 5 MG TAB PO SCH ×2 (08:23→19:37)
[2022-02-16] MEDS: Torsemide 100 MG TAB PO SCH (08:23)
[2022-02-16] MEDS: Sevelamer Carbonate 800 MG TAB PO SCH ×3 (08:23→17:28)
[2022-02-16] MEDS: Senokot S 8.6-50 MG TAB PO SCH ×2 (08:23→19:37)
[2022-02-16] MEDS: Calcium Carbonate 600 MG + Vit D TAB PER TUBE SCH (08:23)
[2022-02-16] MEDS: Ascorbic Acid 500 mg Chewable Tablet PO SCH (08:23)
[2022-02-16] MEDS: Cyanocobalamin (Vitamin B-12) 1,000 MCG TAB PO SCH (08:23)
[2022-02-16] MEDS: Amiodarone 200 MG TAB PO SCH (08:23)
[2022-02-16] MEDS: pyridOXINE 50 MG (B6) TAB PO SCH ×2 (08:23→19:37)
[2022-02-16] MEDS: Spironolactone 100 MG TAB PO SCH (08:23)
[2022-02-16] MEDS: Cholecalciferol 1,000 UNITS (25 MCG) TAB PO SCH (09:00)
[2022-02-16] MEDS: Lansoprazole 3 MG/ML ORAL SUSPENSION PER TUBE SCH ×2 (09:00→19:37)
[2022-02-16] MEDS: CEFAZOLIN 2 GM in Sodium Chloride 0.9% 100 ML IVPB SCH (13:55)
[2022-02-16] MEDS ORDERED: Heparin 10,000 UNITS/ 10 ML VIAL ONE (14:47)
[2022-02-16 15:09] LABS: Hemoglobin 8.3 g/dL (14.0-18.0); Mean Corpuscular HGB CONC 32.2 g/dL (32.0-36.0); Mean Corpuscular Hemoglobin 32.4 pg (27.0-31.0); Platelet Count 552 thou/uL (130-400); RBC Distribution Width 17.8 % (11.5-14.5); Red Blood Cell (RBC) Count 2.56 mill/uL (4.70-6.10); White Blood Cell (WBC) Count 20.6 thou/uL (4.8-10.8)
[2022-02-16 15:11] LABS: ALT (SGPT) Less than 7 U/L (8-55); AST (SGOT) 13 U/L (5-34); Albumin 2.1 g/dL (3.5-5.0); Alkaline Phosphatase 104 U/L (40-110); Anion Gap 17 mmol/L (10-20); BUN (Urea Nitrogen) 39 mg/dL (8.4-25.7); Bilirubin, Total 0.3 mg/dL (0.2-1.2); Calc. Creatinine Clearance 33 mL/min (70-130); Calcium 8.5 mg/dL (7.8-10.44); Carbon Dioxide 29 mmol/L (22-29); Chloride 92 mmol/L (98-107); Estimated GFR 24; Globulin 4.1 g/dL (2.4-3.5); Glucose 161 mg/dL (70-105); Protein, Total 6.2 g/dL (6.0-8.3); Sodium 134 mmol/L (136-145)
[2022-02-16 15:52] LABS: MDiff Complete? YES
[2022-02-16 15:53] LABS: Band 7 % (5-11); Lymphocytes 9 % (21-51); Metamyelocyte 1 % (0-0); Monocytes 5 % (0-10); Neutrophil 78 % (42-75); Platelet Morphology Comment Appears Increased; Polychromasia SLIGHT = 2-3 cells (100X) (0-2/hpf)
[2022-02-17] MEDS: Guaifenesin DM 100-10/5 ML UDCUP PO PRN ×3 (04:49→19:36)
[2022-02-17] MEDS: HYDROcodone/Acetaminophen 10/325 mg Tablet PO PRN ×3 (04:50→19:35)
[2022-02-17 06:04] LABS: #Basophils 0.1 thou/uL (0.0-0.2); #Eosinphils 0.1 thou/uL (0.0-0.7); #Lymphocytes 1.1 thou/uL (1.20-3.40); #Monocytes 1.1 thou/uL (0.11-0.59); #Neutrophils 17.7 thou/uL (1.40-6.50); %Basophils 0.3 % (0.0-1.0); %Eosinophils 0.5 % (0.0-10.0); %Lymphocytes 5.3 % (21.0-51.0); %Monocytes 5.3 % (0.0-10.0); %Neutrophils 88.6 % (42.0-75.0); Hemoglobin 8.4 g/dL (14.0-18.0); Mean Corpuscular HGB CONC 31.3 g/dL (32.0-36.0); Mean Platelet Volume 5.8 fL (7.4-10.4); Platelet Count 571 thou/uL (130-400); RBC Distribution Width 17.7 % (11.5-14.5); Red Blood Cell (RBC) Count 2.61 mill/uL (4.70-6.10); White Blood Cell (WBC) Count 19.9 thou/uL (4.8-10.8)
[2022-02-17 06:26] LABS: ALT (SGPT) Less than 7 U/L (8-55); AST (SGOT) 19 U/L (5-34); Albumin 2.3 g/dL (3.5-5.0); Alkaline Phosphatase 106 U/L (40-110); Anion Gap 15 mmol/L (10-20); BUN (Urea Nitrogen) 22 mg/dL (8.4-25.7); Bilirubin, Direct 0.2 mg/dL (0.1-0.3); Bilirubin, Total 0.4 mg/dL (0.2-1.2); CRP (Inflammatory) 5.71 mg/dL (= or < 0.5); Calc. Creatinine Clearance 47 mL/min (70-130); Calcium 8.9 mg/dL (7.8-10.44); Carbon Dioxide 29 mmol/L (22-29); Cardiac Risk 3.2 (Less than 4.5); Chloride 95 mmol/L (98-107); Cholesterol 74 mg/dl (< 200 Desired); Estimated GFR 37; Glucose 181 mg/dL (70-105); HDL Cholesterol 23 mg/dL (>60 Neg Risk); LDL Cholesterol, Calculated 33 mg/dL; Magnesium 1.7 mg/dL (1.6-2.6); Potassium 3.5 mmol/L (3.5-5.1); Sodium 135 mmol/L (136-145); Triglycerides 88 mg/dL (Less than 150)
[2022-02-17] MEDS: Amiodarone 200 MG TAB PO SCH (08:41)
[2022-02-17] MEDS: Sevelamer Carbonate 800 MG TAB PO SCH ×3 (08:41→16:55)
[2022-02-17] MEDS: pyridOXINE 50 MG (B6) TAB PO SCH ×2 (08:41→19:35)
[2022-02-17] MEDS: Calcium Carbonate 600 MG + Vit D TAB PER TUBE SCH (08:41)
[2022-02-17] MEDS: Spironolactone 100 MG TAB PO SCH (08:41)
[2022-02-17] MEDS: Ascorbic Acid 500 mg Chewable Tablet PO SCH (08:41)
[2022-02-17] MEDS: Polyethylene Glycol 3350 17 GM Packet PER TUBE SCH (08:41)
[2022-02-17] MEDS: Senokot S 8.6-50 MG TAB PO SCH ×2 (08:41→19:35)
[2022-02-17] MEDS: Cyanocobalamin (Vitamin B-12) 1,000 MCG TAB PO SCH (08:41)
[2022-02-17] MEDS: Apixaban 5 MG TAB PO SCH ×2 (08:41→19:35)
[2022-02-17] MEDS: Torsemide 100 MG TAB PO SCH (09:21)
[2022-02-17] MEDS: Epoetin (ESRD) 10,000 UNITS/ML VIAL SC SCH (11:29)
[2022-02-17] MEDS: Lansoprazole 3 MG/ML ORAL SUSPENSION PER TUBE SCH ×2 (11:34→19:35)
[2022-02-17] MEDS: CEFAZOLIN 2 GM in Sodium Chloride 0.9% 100 ML IVPB SCH (13:22)
[2022-02-18] MEDS: HYDROcodone/Acetaminophen 10/325 mg Tablet PO PRN ×3 (00:26→20:19)
[2022-02-18 06:35] LABS: #Basophils 0.1 thou/uL (0.0-0.2); #Eosinphils 0.1 thou/uL (0.0-0.7); #Lymphocytes 1.2 thou/uL (1.20-3.40); #Monocytes 1.2 thou/uL (0.11-0.59); #Neutrophils 16.8 thou/uL (1.40-6.50); %Basophils 0.3 % (0.0-1.0); %Eosinophils 0.5 % (0.0-10.0); %Lymphocytes 6.1 % (21.0-51.0); %Monocytes 6.2 % (0.0-10.0); %Neutrophils 86.8 % (42.0-75.0); Hemoglobin 8.3 g/dL (14.0-18.0); Mean Corpuscular HGB CONC 31.3 g/dL (32.0-36.0); Mean Corpuscular Hemoglobin 32.1 pg (27.0-31.0); Mean Platelet Volume 5.6 fL (7.4-10.4); Platelet Count 534 thou/uL (130-400); RBC Distribution Width 17.2 % (11.5-14.5); White Blood Cell (WBC) Count 19.3 thou/uL (4.8-10.8)
[2022-02-18 06:55] LABS: Anion Gap 14 mmol/L (10-20); BUN (Urea Nitrogen) 34 mg/dL (8.4-25.7); Calc. Creatinine Clearance 39 mL/min (70-130); Calcium 9.2 mg/dL (7.8-10.44); Carbon Dioxide 30 mmol/L (22-29); Chloride 95 mmol/L (98-107); Estimated GFR 29; Glucose 136 mg/dL (70-105); Magnesium 1.7 mg/dL (1.6-2.6); Potassium 3.6 mmol/L (3.5-5.1); Sodium 135 mmol/L (136-145)
[2022-02-18] MEDS: Senokot S 8.6-50 MG TAB PO SCH ×2 (08:48→20:19)
[2022-02-18] MEDS: Ascorbic Acid 500 mg Chewable Tablet PO SCH (08:48)
[2022-02-18] MEDS: Apixaban 5 MG TAB PO SCH ×2 (08:48→20:18)
[2022-02-18] MEDS: Sevelamer Carbonate 800 MG TAB PO SCH ×3 (08:48→16:52)
[2022-02-18] MEDS: Amiodarone 200 MG TAB PO SCH (08:48)
[2022-02-18] MEDS: Spironolactone 100 MG TAB PO SCH (08:48)
[2022-02-18] MEDS: Cyanocobalamin (Vitamin B-12) 1,000 MCG TAB PO SCH (08:48)
[2022-02-18] MEDS: Polyethylene Glycol 3350 17 GM Packet PER TUBE SCH (08:49)
[2022-02-18] MEDS: Torsemide 100 MG TAB PO SCH (08:49)
[2022-02-18] MEDS: pyridOXINE 50 MG (B6) TAB PO SCH ×2 (08:49→20:19)
[2022-02-18] MEDS: Calcium Carbonate 600 MG + Vit D TAB PER TUBE SCH (08:49)
[2022-02-18] MEDS: Cholecalciferol 1,000 UNITS (25 MCG) TAB PO SCH (08:56)
[2022-02-18] MEDS: Magnesium Oxide 400 MG TAB PO SCH (10:52)
[2022-02-18] MEDS: Lansoprazole 3 MG/ML ORAL SUSPENSION PER TUBE SCH ×2 (10:52→20:19)
[2022-02-18] MEDS: CEFAZOLIN 1 GM in Sodium Chloride 0.9% 100 ML IVPB SCH (16:50)
[2022-02-18] MEDS: diphenhydrAMINE 25 MG CAP PO PRN (20:19)
[2022-02-19 06:51] LABS: #Basophils 0.1 thou/uL (0.0-0.2); #Eosinphils 0.1 thou/uL (0.0-0.7); #Lymphocytes 1.1 thou/uL (1.20-3.40); #Neutrophils 15.4 thou/uL (1.40-6.50); %Basophils 0.3 % (0.0-1.0); %Eosinophils 0.5 % (0.0-10.0); %Lymphocytes 6.2 % (21.0-51.0); %Monocytes 5.5 % (0.0-10.0); %Neutrophils 87.4 % (42.0-75.0); Hemoglobin 8.6 g/dL (14.0-18.0); Mean Corpuscular HGB CONC 31.6 g/dL (32.0-36.0); Mean Corpuscular Hemoglobin 32.5 pg (27.0-31.0); Mean Platelet Volume 6.2 fL (7.4-10.4); Platelet Count 521 thou/uL (130-400); Red Blood Cell (RBC) Count 2.66 mill/uL (4.70-6.10); White Blood Cell (WBC) Count 17.6 thou/uL (4.8-10.8)
[2022-02-19] MEDS ORDERED: PROPOFOL 40 ML ONE (06:51)
[2022-02-19 07:06] LABS: Albumin 2.3 g/dL (3.5-5.0); Phosphorus 4.7 mg/dL (2.3-4.7)
[2022-02-19 07:13] LABS: BUN (Urea Nitrogen) 42 mg/dL (8.4-25.7); Calc. Creatinine Clearance 35 mL/min (70-130); Carbon Dioxide 24 mmol/L (22-29); Estimated GFR 25; Glucose 138 mg/dL (70-105); Magnesium 1.7 mg/dL (1.6-2.6); Sodium 133 mmol/L (136-145)
[2022-02-19 08:09] LABS: Chloride 92 mmol/L (98-107)
[2022-02-19 08:10] LABS: Anion Gap 21 mmol/L (10-20)
[2022-02-19] MEDS ORDERED: Fentanyl 100 MCG/2 ML VIAL ONE (08:28)
[2022-02-19] MEDS ORDERED: Ondansetron PF 4 MG/2 ML Vial ONE (08:45)
[2022-02-19] MEDS ORDERED: Dexamethasone 20 MG/5 ML VIAL ONE (08:45)
[2022-02-19] MEDS ORDERED: PROPOFOL 200 MG/20 ML VIAL ONE (08:45)
[2022-02-19] MEDS ORDERED: Lidocaine 1% PF 5 ML VIAL ONE (08:45)
[2022-02-19] MEDS: Sevelamer Carbonate 800 MG TAB PO SCH ×3 (10:16→17:16)
[2022-02-19] MEDS: pyridOXINE 50 MG (B6) TAB PO SCH ×2 (10:17→20:21)
[2022-02-19] MEDS: Lansoprazole 3 MG/ML ORAL SUSPENSION PER TUBE SCH ×2 (10:17→20:59)
[2022-02-19] MEDS: Senokot S 8.6-50 MG TAB PO SCH ×2 (10:17→20:20)
[2022-02-19] MEDS: Apixaban 5 MG TAB PO SCH ×2 (10:17→20:21)
[2022-02-19] MEDS ORDERED: Heparin 10,000 UNITS/ 10 ML VIAL ONE (10:49)
[2022-02-19] MEDS: HYDROcodone/Acetaminophen 10/325 mg Tablet PO PRN ×2 (11:14→20:20)
[2022-02-19] MEDS: Ascorbic Acid 500 mg Chewable Tablet PO SCH (11:17)
[2022-02-19] MEDS: Amiodarone 200 MG TAB PO SCH (11:17)
[2022-02-19] MEDS: Calcium Carbonate 600 MG + Vit D TAB PER TUBE SCH (11:17)
[2022-02-19] MEDS: Spironolactone 100 MG TAB PO SCH (11:18)
[2022-02-19] MEDS: Cyanocobalamin (Vitamin B-12) 1,000 MCG TAB PO SCH (11:19)
[2022-02-19] MEDS: Magnesium Oxide 400 MG TAB PO SCH (11:19)
[2022-02-19] MEDS: Torsemide 100 MG TAB PO SCH (11:19)
[2022-02-19] MEDS: Polyethylene Glycol 3350 17 GM Packet PER TUBE SCH (11:19)
[2022-02-19] MEDS: Epoetin (ESRD) 10,000 UNITS/ML VIAL SC SCH (11:56)
[2022-02-19] MEDS ORDERED: Heparin 1,000 UNITS/ML VIAL CATH SCH (12:30)
[2022-02-19] MEDS: CEFAZOLIN 1 GM in Sodium Chloride 0.9% 100 ML IVPB SCH (17:16)
[2022-02-20] MEDS: HYDROcodone/Acetaminophen 10/325 mg Tablet PO PRN ×2 (02:24→18:38)
[2022-02-20] MEDS: Levothyroxine Sodium 25 MCG TAB PO SCH (05:31)
[2022-02-20 06:33] LABS: Anion Gap 16 mmol/L (10-20); BUN (Urea Nitrogen) 53 mg/dL (8.4-25.7); Calc. Creatinine Clearance 32 mL/min (70-130); Calcium 8.6 mg/dL (7.8-10.44); Carbon Dioxide 29 mmol/L (22-29); Chloride 94 mmol/L (98-107); Estimated GFR 23; Glucose 140 mg/dL (70-105); Magnesium 1.7 mg/dL (1.6-2.6); Potassium 3.9 mmol/L (3.5-5.1); Sodium 135 mmol/L (136-145)
[2022-02-20 06:37] LABS: Hypochromia SLIGHT = 6-15 cells (100X) (0-5/hpf); Lymphocytes 8 % (21-51); MDiff Complete? YES; Mean Corpuscular HGB CONC 32.5 g/dL (32.0-36.0); Mean Corpuscular Hemoglobin 33.3 pg (27.0-31.0); Mean Platelet Volume 5.9 fL (7.4-10.4); Monocytes 13 % (0-10); Neutrophil 79 % (42-75); Platelet Count 503 thou/uL (130-400); Platelet Morphology Comment Appears Increased; RBC Distribution Width 17.2 % (11.5-14.5); Red Blood Cell (RBC) Count 2.41 mill/uL (4.70-6.10); White Blood Cell (WBC) Count 16.8 thou/uL (4.8-10.8)
[2022-02-20] MEDS: Sevelamer Carbonate 800 MG TAB PO SCH ×3 (08:15→17:39)
[2022-02-20] MEDS: Polyethylene Glycol 3350 17 GM Packet PER TUBE SCH (08:15)
[2022-02-20] MEDS: Magnesium Oxide 400 MG TAB PO SCH (08:15)
[2022-02-20] MEDS: Lansoprazole 3 MG/ML ORAL SUSPENSION PER TUBE SCH (08:15)
[2022-02-20] MEDS: Ascorbic Acid 500 mg Chewable Tablet PO SCH (08:16)
[2022-02-20] MEDS: Senokot S 8.6-50 MG TAB PO SCH ×2 (08:16→20:49)
[2022-02-20] MEDS: Torsemide 100 MG TAB PO SCH (08:16)
[2022-02-20] MEDS: Calcium Carbonate 600 MG + Vit D TAB PER TUBE SCH (08:16)
[2022-02-20] MEDS: Cyanocobalamin (Vitamin B-12) 1,000 MCG TAB PO SCH (08:16)
[2022-02-20] MEDS: pyridOXINE 50 MG (B6) TAB PO SCH ×2 (08:16→20:54)
[2022-02-20] MEDS: Guaifenesin DM 100-10/5 ML UDCUP PO PRN (08:16)
[2022-02-20] MEDS: Amiodarone 200 MG TAB PO SCH (08:16)
[2022-02-20] MEDS: Apixaban 5 MG TAB PO SCH (08:16)
[2022-02-20] MEDS: CEFAZOLIN 1 GM in Sodium Chloride 0.9% 100 ML IVPB SCH (17:39)
[2022-02-20] MEDS: diphenhydrAMINE 25 MG CAP PO PRN (20:53)
[2022-02-20] MEDS ORDERED: Enoxaparin Sodium 80 MG/0.8 ML SYRINGE SC SCH (21:00)
[2022-02-21] MEDS: Levothyroxine Sodium 25 MCG TAB PO SCH (06:02)
[2022-02-21] MEDS: HYDROcodone/Acetaminophen 10/325 mg Tablet PO PRN ×2 (06:03→16:50)
[2022-02-21] MEDS: Polyethylene Glycol 3350 17 GM Packet PER TUBE SCH (08:01)
[2022-02-21 08:02] LABS: Anion Gap 17 mmol/L (10-20); BUN (Urea Nitrogen) 58 mg/dL (8.4-25.7); Calc. Creatinine Clearance 34 mL/min (70-130); Calcium 9.2 mg/dL (7.8-10.44); Carbon Dioxide 30 mmol/L (22-29); Chloride 92 mmol/L (98-107); Estimated GFR 25; Glucose 164 mg/dL (70-105); Magnesium 1.7 mg/dL (1.6-2.6); Sodium 135 mmol/L (136-145)
[2022-02-21] MEDS: Calcium Carbonate 600 MG + Vit D TAB PER TUBE SCH (08:02)
[2022-02-21] MEDS: Magnesium Oxide 400 MG TAB PO SCH (08:02)
[2022-02-21] MEDS: Ascorbic Acid 500 mg Chewable Tablet PO SCH (08:02)
[2022-02-21] MEDS: Cyanocobalamin (Vitamin B-12) 1,000 MCG TAB PO SCH (08:02)
[2022-02-21] MEDS: Amiodarone 200 MG TAB PO SCH (08:02)
[2022-02-21] MEDS: pyridOXINE 50 MG (B6) TAB PO SCH ×2 (08:03→21:14)
[2022-02-21] MEDS: Senokot S 8.6-50 MG TAB PO SCH ×2 (08:03→21:14)
[2022-02-21] MEDS: Sevelamer Carbonate 800 MG TAB PO SCH ×3 (08:03→16:48)
[2022-02-21] MEDS: Torsemide 100 MG TAB PO SCH (08:09)
[2022-02-21 08:23] LABS: Band 2 % (5-11); Eosinophils 1 % (0-10); Hemoglobin 8.5 g/dL (14.0-18.0); Hypochromia SLIGHT = 6-15 cells (100X) (0-5/hpf); Lymphocytes 2 % (21-51); MDiff Complete? YES; Macrocytosis SLIGHT = 6-15 cells (100X) (0-5/hpf); Mean Corpuscular HGB CONC 31.2 g/dL (32.0-36.0); Mean Corpuscular Hemoglobin 32.5 pg (27.0-31.0); Mean Platelet Volume 5.9 fL (7.4-10.4); Monocytes 1 % (0-10); Neutrophil 94 % (42-75); Platelet Count 506 thou/uL (130-400); Platelet Morphology Comment Appears Increased; Polychromasia SLIGHT = 2-3 cells (100X) (0-2/hpf); Red Blood Cell (RBC) Count 2.62 mill/uL (4.70-6.10)
[2022-02-21] MEDS: Epoetin (ESRD) 10,000 UNITS/ML VIAL SC SCH (08:46)
[2022-02-21] MEDS: Guaifenesin DM 100-10/5 ML UDCUP PO PRN (11:55)
[2022-02-21] MEDS: CEFAZOLIN 1 GM in Sodium Chloride 0.9% 100 ML IVPB SCH (16:48)
[2022-02-21] MEDS: Calcium Carbonate 500 MG ChewTAB PO PRN (16:54)
[2022-02-21] MEDS: diphenhydrAMINE 25 MG CAP PO PRN (21:14)
[2022-02-22] MEDS: HYDROcodone/Acetaminophen 10/325 mg Tablet PO PRN ×2 (01:20→20:10)
[2022-02-22] MEDS: Calcium Carbonate 500 MG ChewTAB PO PRN (01:21)
[2022-02-22] MEDS ORDERED: Lidocaine 2% Viscous Solution 10 ML, Aluminum & Magnesium Hydroxide 30 ML SSW SCH (01:30)
[2022-02-22] MEDS: Nitroglycerin 0.4 MG TAB (25 Tab Bottle) SL PRN ×3 (01:47→22:25)
[2022-02-22 02:08] LABS: Troponin I 0.035 ng/mL (< 0.028)
[2022-02-22] MEDS ORDERED: Morphine 4 MG/ML VIAL SLOW IVP SCH (05:45)
[2022-02-22] MEDS ORDERED: Aspirin 325 MG TAB PO SCH (05:45)
[2022-02-22] MEDS: Levothyroxine Sodium 25 MCG TAB PO SCH (05:53)
[2022-02-22 06:46] LABS: #Eosinphils 0.1 thou/uL (0.0-0.7); #Lymphocytes 1.2 thou/uL (1.20-3.40); #Neutrophils 17.5 thou/uL (1.40-6.50); %Basophils 0.2 % (0.0-1.0); %Eosinophils 0.5 % (0.0-10.0); %Lymphocytes 6.2 % (21.0-51.0); %Monocytes 4.9 % (0.0-10.0); %Neutrophils 88.2 % (42.0-75.0); Hemoglobin 8.4 g/dL (14.0-18.0); Mean Corpuscular HGB CONC 31.5 g/dL (32.0-36.0); Mean Corpuscular Hemoglobin 32.4 pg (27.0-31.0); Platelet Count 504 thou/uL (130-400); RBC Distribution Width 16.8 % (11.5-14.5); Red Blood Cell (RBC) Count 2.58 mill/uL (4.70-6.10); White Blood Cell (WBC) Count 19.9 thou/uL (4.8-10.8)
[2022-02-22 07:06] LABS: Anion Gap 15 mmol/L (10-20); BUN (Urea Nitrogen) 59 mg/dL (8.4-25.7); Calc. Creatinine Clearance 37 mL/min (70-130); Calcium 9.4 mg/dL (7.8-10.44); Carbon Dioxide 31 mmol/L (22-29); Chloride 92 mmol/L (98-107); Estimated GFR 27; Glucose 147 mg/dL (70-105); Magnesium 1.6 mg/dL (1.6-2.6); Potassium 4.3 mmol/L (3.5-5.1); Sodium 134 mmol/L (136-145)
[2022-02-22 07:07] LABS: Troponin I 0.025 ng/mL (< 0.028)
[2022-02-22] MEDS: Torsemide 20 MG TAB PO SCH (08:01)
[2022-02-22] MEDS: Sevelamer Carbonate 800 MG TAB PO SCH ×3 (08:01→16:53)
[2022-02-22] MEDS: Polyethylene Glycol 3350 17 GM Packet PER TUBE SCH (08:01)
[2022-02-22] MEDS: Senokot S 8.6-50 MG TAB PO SCH ×2 (08:02→20:09)
[2022-02-22] MEDS: pyridOXINE 50 MG (B6) TAB PO SCH ×2 (08:02→20:09)
[2022-02-22] MEDS: Calcium Carbonate 600 MG + Vit D TAB PER TUBE SCH (08:02)
[2022-02-22] MEDS: Amiodarone 200 MG TAB PO SCH (08:02)
[2022-02-22] MEDS: Ascorbic Acid 500 mg Chewable Tablet PO SCH (08:02)
[2022-02-22] MEDS: Magnesium Oxide 400 MG TAB PO SCH (08:02)
[2022-02-22] MEDS: Cyanocobalamin (Vitamin B-12) 1,000 MCG TAB PO SCH (08:02)
[2022-02-22] MEDS ORDERED: Lorazepam 1 MG TAB PO SCH (12:30)
[2022-02-22] MEDS: CEFAZOLIN 1 GM in Sodium Chloride 0.9% 100 ML IVPB SCH (18:24)
[2022-02-22] MEDS: diphenhydrAMINE 25 MG CAP PO PRN (20:09)
[2022-02-23] MEDS: diphenhydrAMINE 25 MG CAP PO PRN (02:49)
[2022-02-23] MEDS: Levothyroxine Sodium 25 MCG TAB PO SCH (05:08)
[2022-02-23] MEDS: CEFAZOLIN 1 GM in Sodium Chloride 0.9% 100 ML IVPB SCH ×2 (05:09→17:49)
[2022-02-23] MEDS: HYDROcodone/Acetaminophen 10/325 mg Tablet PO PRN ×3 (05:09→21:23)
[2022-02-23 07:02] LABS: Anion Gap 14 mmol/L (10-20); BUN (Urea Nitrogen) 66 mg/dL (8.4-25.7); Calc. Creatinine Clearance 42 mL/min (70-130); Calcium 9.6 mg/dL (7.8-10.44); Carbon Dioxide 31 mmol/L (22-29); Chloride 92 mmol/L (98-107); Estimated GFR 31; Glucose 134 mg/dL (70-105); Magnesium 1.7 mg/dL (1.6-2.6); Potassium 4.3 mmol/L (3.5-5.1); Sodium 133 mmol/L (136-145)
[2022-02-23 07:03] LABS: Hemoglobin 8.4 g/dL (14.0-18.0); Mean Corpuscular HGB CONC 31.3 g/dL (32.0-36.0); Mean Corpuscular Hemoglobin 32.6 pg (27.0-31.0); Mean Platelet Volume 6.1 fL (7.4-10.4); Platelet Count 492 thou/uL (130-400); RBC Distribution Width 16.9 % (11.5-14.5); Red Blood Cell (RBC) Count 2.57 mill/uL (4.70-6.10); White Blood Cell (WBC) Count 20.3 thou/uL (4.8-10.8)
[2022-02-23] MEDS ORDERED: Propofol 500 MG/50 ML VIAL ONE (07:48)
[2022-02-23] MEDS ORDERED: fentaNYL Citrate/PF 100 MCG/2 ML SYRINGE ONE (07:48)
[2022-02-23] MEDS: Sevelamer Carbonate 800 MG TAB PO SCH ×3 (08:10→16:40)
[2022-02-23] MEDS: Calcium Carbonate 600 MG + Vit D TAB PER TUBE SCH (08:10)
[2022-02-23] MEDS: Amiodarone 200 MG TAB PO SCH (08:11)
[2022-02-23] MEDS: pyridOXINE 50 MG (B6) TAB PO SCH ×2 (08:11→21:23)
[2022-02-23] MEDS: Cyanocobalamin (Vitamin B-12) 1,000 MCG TAB PO SCH (08:11)
[2022-02-23] MEDS: Magnesium Oxide 400 MG TAB PO SCH (08:11)
[2022-02-23] MEDS: Polyethylene Glycol 3350 17 GM Packet PER TUBE SCH (08:11)
[2022-02-23] MEDS: Ascorbic Acid 500 mg Chewable Tablet PO SCH (08:11)
[2022-02-23] MEDS: Senokot S 8.6-50 MG TAB PO SCH ×2 (08:11→21:23)
[2022-02-23 08:55] LABS: Band 1 % (5-11); Lymphocytes 7 % (21-51); MDiff Complete? YES; Metamyelocyte 1 % (0-0); Monocytes 8 % (0-10); Neutrophil 83 % (42-75); Platelet Morphology Comment Appears Increased; RBC Morphology Normal
[2022-02-23] MEDS ORDERED: Bupivacaine 0.25% HCL 30 ML VIAL ONE (08:57)
[2022-02-23] MEDS ORDERED: Lidocaine 1% w/Epinephrine 1:100K 20 ML VIAL ONE (08:57)
[2022-02-23] MEDS: Torsemide 20 MG TAB PO SCH (10:08)
[2022-02-23] MEDS ORDERED: Promethazine HCl 25 MG/ML VIAL IVPB PRN (10:20)
[2022-02-23] MEDS ORDERED: Ondansetron HCl/PF 4 MG/2 ML Vial IVP PRN (10:20)
[2022-02-23] MEDS ORDERED: Fentanyl 100 MCG/2 ML VIAL ONE ×3 (10:35→12:55)
[2022-02-23] MEDS ORDERED: Midazolam HCl 2 mg/2 ml Vial ONE (12:56)
[2022-02-23] MEDS ORDERED: Sodium Bicarbonate 2.5 MEQ/5 ML VIAL ONE (12:56)
[2022-02-23] MEDS ORDERED: Lidocaine 1% PF 5 ML VIAL ONE (12:56)
[2022-02-23] MEDS: Epoetin (ESRD) 20,000 UNITS/ML SC SCH (16:40)
[2022-02-23] MEDS ORDERED: HYDROmorphone 2 MG/ML VIAL SLOW IVP SCH (17:45)
[2022-02-24] MEDS: CEFAZOLIN 1 GM in Sodium Chloride 0.9% 100 ML IVPB SCH ×2 (05:19→17:06)
[2022-02-24] MEDS: Levothyroxine Sodium 25 MCG TAB PO SCH (05:20)
[2022-02-24 06:55] LABS: #Neutrophils 16.7 thou/uL (1.40-6.50); %Basophils 0.1 % (0.0-1.0); %Eosinophils 0.2 % (0.0-10.0); %Lymphocytes 5.5 % (21.0-51.0); %Monocytes 5.3 % (0.0-10.0); %Neutrophils 88.9 % (42.0-75.0); Hemoglobin 7.4 g/dL (14.0-18.0); Mean Corpuscular HGB CONC 31.6 g/dL (32.0-36.0); Mean Corpuscular Hemoglobin 32.7 pg (27.0-31.0); Platelet Count 451 thou/uL (130-400); RBC Distribution Width 17.3 % (11.5-14.5); Red Blood Cell (RBC) Count 2.26 mill/uL (4.70-6.10); White Blood Cell (WBC) Count 18.8 thou/uL (4.8-10.8)
[2022-02-24 07:15] LABS: Anion Gap 17 mmol/L (10-20); BUN (Urea Nitrogen) 66 mg/dL (8.4-25.7); Calc. Creatinine Clearance 45 mL/min (70-130); Calcium 9.1 mg/dL (7.8-10.44); Carbon Dioxide 27 mmol/L (22-29); Chloride 94 mmol/L (98-107); Estimated GFR 34; Glucose 141 mg/dL (70-105); Sodium 134 mmol/L (136-145)
[2022-02-24] MEDS: Ascorbic Acid 500 mg Chewable Tablet PO SCH (09:03)
[2022-02-24] MEDS: Sevelamer Carbonate 800 MG TAB PO SCH (09:04)
[2022-02-24] MEDS: Torsemide 20 MG TAB PO SCH (09:04)
[2022-02-24] MEDS: Calcium Carbonate 600 MG + Vit D TAB PER TUBE SCH (09:04)
[2022-02-24] MEDS: HYDROcodone/Acetaminophen 10/325 mg Tablet PO PRN ×3 (09:04→23:24)
[2022-02-24] MEDS: Magnesium Oxide 400 MG TAB PO SCH (09:05)
[2022-02-24] MEDS: Senokot S 8.6-50 MG TAB PO SCH ×2 (09:05→21:01)
[2022-02-24] MEDS: Polyethylene Glycol 3350 17 GM Packet PER TUBE SCH (09:05)
[2022-02-24] MEDS: Amiodarone 200 MG TAB PO SCH (09:05)
[2022-02-24] MEDS: Cyanocobalamin (Vitamin B-12) 1,000 MCG TAB PO SCH (09:05)
[2022-02-24] MEDS: pyridOXINE 50 MG (B6) TAB PO SCH ×2 (09:05→21:01)
[2022-02-25] MEDS: Levothyroxine Sodium 25 MCG TAB PO SCH (05:03)
[2022-02-25] MEDS: CEFAZOLIN 1 GM in Sodium Chloride 0.9% 100 ML IVPB SCH ×2 (05:03→18:26)
[2022-02-25] MEDS: HYDROcodone/Acetaminophen 10/325 mg Tablet PO PRN ×3 (05:22→20:42)
[2022-02-25 06:46] LABS: Hemoglobin 7.1 g/dL (14.0-18.0); Mean Corpuscular HGB CONC 31.1 g/dL (32.0-36.0); Mean Corpuscular Hemoglobin 32.2 pg (27.0-31.0); Mean Platelet Volume 6.2 fL (7.4-10.4); Platelet Count 460 thou/uL (130-400); RBC Distribution Width 16.8 % (11.5-14.5); Red Blood Cell (RBC) Count 2.19 mill/uL (4.70-6.10); White Blood Cell (WBC) Count 20.9 thou/uL (4.8-10.8)
[2022-02-25 06:48] LABS: #Basophils 0.1 thou/uL (0.0-0.2); #Eosinphils 0.1 thou/uL (0.0-0.7); #Lymphocytes 1.2 thou/uL (1.20-3.40); %Basophils 0.3 % (0.0-1.0); %Eosinophils 0.5 % (0.0-10.0); %Monocytes 4.7 % (0.0-10.0); %Neutrophils 88.6 % (42.0-75.0)
[2022-02-25 06:49] LABS: Phosphorus 4.6 mg/dL (2.3-4.7)
[2022-02-25 06:51] LABS: Anion Gap 15 mmol/L (10-20); Calcium 9.2 mg/dL (7.8-10.44); Carbon Dioxide 31 mmol/L (22-29); Chloride 93 mmol/L (98-107); Glucose 130 mg/dL (70-105); Potassium 3.7 mmol/L (3.5-5.1); Sodium 135 mmol/L (136-145)
[2022-02-25 06:52] LABS: BUN (Urea Nitrogen) 61 mg/dL (8.4-25.7); Calc. Creatinine Clearance 45 mL/min (70-130); Estimated GFR 35; Magnesium 1.8 mg/dL (1.6-2.6)
[2022-02-25 08:02] LABS: Band 7 % (5-11); Hypochromia SLIGHT = 6-15 cells (100X) (0-5/hpf); Lymphocytes 6 % (21-51); MDiff Complete? YES; Monocytes 6 % (0-10); Neutrophil 81 % (42-75); Platelet Morphology Comment Appears Increased; Polychromasia MODERATE = 3-4 cells (100X) (0-2/hpf)
[2022-02-25] MEDS: Senokot S 8.6-50 MG TAB PO SCH ×2 (08:50→20:42)
[2022-02-25] MEDS: Amiodarone 200 MG TAB PO SCH (08:50)
[2022-02-25] MEDS: pyridOXINE 50 MG (B6) TAB PO SCH ×2 (08:50→20:42)
[2022-02-25] MEDS: Polyethylene Glycol 3350 17 GM Packet PER TUBE SCH (08:50)
[2022-02-25] MEDS: Torsemide 20 MG TAB PO SCH (08:50)
[2022-02-25] MEDS: Ascorbic Acid 500 mg Chewable Tablet PO SCH (08:51)
[2022-02-25] MEDS: Cyanocobalamin (Vitamin B-12) 1,000 MCG TAB PO SCH (08:51)
[2022-02-25] MEDS: Calcium Carbonate 600 MG + Vit D TAB PER TUBE SCH (08:51)
[2022-02-25] MEDS ORDERED: Lidocaine 4% Topical Sol 50 ML BOT TOP SCH (09:30)
[2022-02-25] MEDS: Guaifenesin DM 100-10/5 ML UDCUP PO PRN (20:42)
[2022-02-26] MEDS: CEFAZOLIN 1 GM in Sodium Chloride 0.9% 100 ML IVPB SCH ×2 (05:13→17:11)
[2022-02-26] MEDS: Levothyroxine Sodium 25 MCG TAB PO SCH (05:13)
[2022-02-26] MEDS: HYDROcodone/Acetaminophen 10/325 mg Tablet PO PRN ×3 (05:16→23:56)
[2022-02-26] MEDS: Polyethylene Glycol 3350 17 GM Packet PER TUBE SCH (09:18)
[2022-02-26] MEDS: Ascorbic Acid 500 mg Chewable Tablet PO SCH (09:19)
[2022-02-26] MEDS: pyridOXINE 50 MG (B6) TAB PO SCH ×2 (09:19→20:33)
[2022-02-26] MEDS: Amiodarone 200 MG TAB PO SCH (09:19)
[2022-02-26] MEDS: Calcium Carbonate 600 MG + Vit D TAB PER TUBE SCH (09:19)
[2022-02-26] MEDS: Cyanocobalamin (Vitamin B-12) 1,000 MCG TAB PO SCH (09:19)
[2022-02-26] MEDS: Senokot S 8.6-50 MG TAB PO SCH ×2 (09:19→20:33)
[2022-02-27] MEDS: Levothyroxine Sodium 25 MCG TAB PO SCH (06:05)
[2022-02-27] MEDS: HYDROcodone/Acetaminophen 10/325 mg Tablet PO PRN ×3 (06:05→21:15)
[2022-02-27] MEDS: CEFAZOLIN 1 GM in Sodium Chloride 0.9% 100 ML IVPB SCH ×2 (06:05→16:42)
[2022-02-27 06:39] LABS: #Basophils 0.1 thou/uL (0.0-0.2); #Eosinphils 0.2 thou/uL (0.0-0.7); #Lymphocytes 1.2 thou/uL (1.20-3.40); #Monocytes 0.9 thou/uL (0.11-0.59); #Neutrophils 15.5 thou/uL (1.40-6.50); %Basophils 0.3 % (0.0-1.0); %Eosinophils 0.9 % (0.0-10.0); %Lymphocytes 6.7 % (21.0-51.0); %Monocytes 5.2 % (0.0-10.0); %Neutrophils 86.9 % (42.0-75.0); Mean Corpuscular HGB CONC 31.4 g/dL (32.0-36.0); Mean Corpuscular Hemoglobin 32.9 pg (27.0-31.0); Mean Platelet Volume 6.1 fL (7.4-10.4); Platelet Count 431 thou/uL (130-400); RBC Distribution Width 16.4 % (11.5-14.5); Red Blood Cell (RBC) Count 2.13 mill/uL (4.70-6.10); White Blood Cell (WBC) Count 17.8 thou/uL (4.8-10.8)
[2022-02-27 07:02] LABS: Anion Gap 12 mmol/L (10-20); BUN (Urea Nitrogen) 59 mg/dL (8.4-25.7); Calc. Creatinine Clearance 58 mL/min (70-130); Calcium 9.3 mg/dL (7.8-10.44); Carbon Dioxide 31 mmol/L (22-29); Chloride 95 mmol/L (98-107); Estimated GFR 47; Glucose 123 mg/dL (70-105); Potassium 3.8 mmol/L (3.5-5.1); Sodium 134 mmol/L (136-145)
[2022-02-27] MEDS ORDERED: Midazolam HCl 2 mg/2 ml Vial SLOW IVP SCH (09:15)
[2022-02-27] MEDS: Amiodarone 200 MG TAB PO SCH (09:55)
[2022-02-27] MEDS: Ascorbic Acid 500 mg Chewable Tablet PO SCH (09:55)
[2022-02-27] MEDS: Cyanocobalamin (Vitamin B-12) 1,000 MCG TAB PO SCH (09:55)
[2022-02-27] MEDS: pyridOXINE 50 MG (B6) TAB PO SCH ×2 (09:55→21:15)
[2022-02-27] MEDS: Polyethylene Glycol 3350 17 GM Packet PER TUBE SCH (09:55)
[2022-02-27] MEDS: Senokot S 8.6-50 MG TAB PO SCH ×2 (09:55→21:15)
[2022-02-27] MEDS: Calcium Carbonate 600 MG + Vit D TAB PER TUBE SCH (09:55)
[2022-02-27] MEDS ORDERED: Lidocaine 4% Topical Sol 50 ML BOT TOP PRN (10:20)
[2022-02-27] MEDS ORDERED: Heparin 1,000 UNITS/ML VIAL CATH SCH (15:00)
[2022-02-28] MEDS ORDERED: Morphine 2 MG/ML VIAL SLOW IVP SCH (02:15)
[2022-02-28] MEDS: Levothyroxine Sodium 25 MCG TAB PO SCH (06:23)
[2022-02-28] MEDS: CEFAZOLIN 1 GM in Sodium Chloride 0.9% 100 ML IVPB SCH ×3 (06:24→20:46)
[2022-02-28 08:10] LABS: Anion Gap 14 mmol/L (10-20); BUN (Urea Nitrogen) 53 mg/dL (8.4-25.7); Calc. Creatinine Clearance 71 mL/min (70-130); Calcium 9.5 mg/dL (7.8-10.44); Carbon Dioxide 28 mmol/L (22-29); Chloride 98 mmol/L (98-107); Estimated GFR 60; Glucose 127 mg/dL (70-105); Potassium 4.1 mmol/L (3.5-5.1); Sodium 136 mmol/L (136-145)
[2022-02-28] MEDS: Cyanocobalamin (Vitamin B-12) 1,000 MCG TAB PO SCH (08:59)
[2022-02-28] MEDS: Senokot S 8.6-50 MG TAB PO SCH ×2 (08:59→20:46)
[2022-02-28] MEDS: DULoxetine 30 MG CAP PO SCH (08:59)
[2022-02-28] MEDS: pyridOXINE 50 MG (B6) TAB PO SCH ×2 (08:59→20:45)
[2022-02-28] MEDS: Calcium Carbonate 600 MG + Vit D TAB PER TUBE SCH (08:59)
[2022-02-28] MEDS: Ascorbic Acid 500 mg Chewable Tablet PO SCH (08:59)
[2022-02-28] MEDS: Amiodarone 200 MG TAB PO SCH (08:59)
[2022-02-28] MEDS: Polyethylene Glycol 3350 17 GM Packet PER TUBE SCH (08:59)
[2022-02-28] MEDS ORDERED: Heparin 1,000 UNITS/ML VIAL CATH SCH (09:00)
[2022-02-28] MEDS ORDERED: Furosemide 40 MG TAB PO SCH (11:30)
[2022-02-28] MEDS: HYDROcodone/Acetaminophen 10/325 mg Tablet PO PRN (14:04)
[2022-03-01] MEDS: CEFAZOLIN 1 GM in Sodium Chloride 0.9% 100 ML IVPB SCH ×3 (05:46→20:47)
[2022-03-01] MEDS: Levothyroxine Sodium 25 MCG TAB PO SCH (05:46)
[2022-03-01 06:12] LABS: Anion Gap 12 mmol/L (10-20); BUN (Urea Nitrogen) 49 mg/dL (8.4-25.7); Calc. Creatinine Clearance 82 mL/min (70-130); Calcium 8.9 mg/dL (7.8-10.44); Carbon Dioxide 27 mmol/L (22-29); Chloride 101 mmol/L (98-107); Estimated GFR 71; Glucose 124 mg/dL (70-105); Potassium 4.2 mmol/L (3.5-5.1); Sodium 136 mmol/L (136-145)
[2022-03-01] MEDS: Senokot S 8.6-50 MG TAB PO SCH ×2 (08:43→20:47)
[2022-03-01] MEDS: Amiodarone 200 MG TAB PO SCH (08:43)
[2022-03-01] MEDS: Cyanocobalamin (Vitamin B-12) 1,000 MCG TAB PO SCH (08:43)
[2022-03-01] MEDS: Calcium Carbonate 600 MG + Vit D TAB PER TUBE SCH (08:43)
[2022-03-01] MEDS: pyridOXINE 50 MG (B6) TAB PO SCH ×2 (08:43→20:47)
[2022-03-01] MEDS: DULoxetine 30 MG CAP PO SCH (08:43)
[2022-03-01] MEDS: Ascorbic Acid 500 mg Chewable Tablet PO SCH (08:43)
[2022-03-01] MEDS: Furosemide 40 MG TAB PO SCH (08:43)
[2022-03-01] MEDS: Polyethylene Glycol 3350 17 GM Packet PER TUBE SCH (08:43)
[2022-03-01] MEDS ORDERED: Bisacodyl 10 MG SUPP PR SCH (09:00)
[2022-03-01] MEDS: HYDROcodone/Acetaminophen 10/325 mg Tablet PO PRN (17:17)
[2022-03-02] MEDS: CEFAZOLIN 1 GM in Sodium Chloride 0.9% 100 ML IVPB SCH ×3 (05:55→20:59)
[2022-03-02] MEDS: Levothyroxine Sodium 25 MCG TAB PO SCH (05:55)
[2022-03-02] MEDS: Polyethylene Glycol 3350 17 GM Packet PER TUBE SCH ×2 (09:12→09:13)
[2022-03-02] MEDS: Epoetin (ESRD) 20,000 UNITS/ML SC SCH (09:13)
[2022-03-02] MEDS: Furosemide 40 MG TAB PO SCH (09:13)
[2022-03-02] MEDS: Ascorbic Acid 500 mg Chewable Tablet PO SCH (09:13)
[2022-03-02] MEDS: DULoxetine 30 MG CAP PO SCH (09:13)
[2022-03-02] MEDS: Cyanocobalamin (Vitamin B-12) 1,000 MCG TAB PO SCH (09:14)
[2022-03-02] MEDS: Calcium Carbonate 600 MG + Vit D TAB PER TUBE SCH (09:14)
[2022-03-02] MEDS: Amiodarone 200 MG TAB PO SCH (09:14)
[2022-03-02] MEDS: pyridOXINE 50 MG (B6) TAB PO SCH ×2 (09:14→20:59)
[2022-03-02] MEDS: Senokot S 8.6-50 MG TAB PO SCH ×2 (09:15→20:59)
[2022-03-02] MEDS: Bisacodyl 10 MG SUPP PR SCH ×2 (10:08→16:33)
[2022-03-02] MEDS: HYDROcodone/Acetaminophen 10/325 mg Tablet PO PRN ×2 (11:23→21:00)
[2022-03-02] MEDS ORDERED: Fleet Enema 133 ML BOT PR SCH (19:00)
[2022-03-03] MEDS: Levothyroxine Sodium 25 MCG TAB PO SCH (05:38)
[2022-03-03] MEDS: CEFAZOLIN 1 GM in Sodium Chloride 0.9% 100 ML IVPB SCH ×2 (05:38→14:48)
[2022-03-03] MEDS: Senokot S 8.6-50 MG TAB PO SCH ×2 (08:49→20:52)
[2022-03-03] MEDS: Ascorbic Acid 500 mg Chewable Tablet PO SCH (08:49)
[2022-03-03] MEDS: DULoxetine 30 MG CAP PO SCH (08:50)
[2022-03-03] MEDS: Furosemide 40 MG TAB PO SCH (08:50)
[2022-03-03] MEDS: Polyethylene Glycol 3350 17 GM Packet PER TUBE SCH (08:50)
[2022-03-03] MEDS: Amiodarone 200 MG TAB PO SCH (08:50)
[2022-03-03] MEDS: Cyanocobalamin (Vitamin B-12) 1,000 MCG TAB PO SCH (08:50)
[2022-03-03] MEDS: Calcium Carbonate 600 MG + Vit D TAB PER TUBE SCH (08:50)
[2022-03-03] MEDS: pyridOXINE 50 MG (B6) TAB PO SCH ×2 (08:50→20:52)
[2022-03-03] MEDS ORDERED: Fleet Enema 133 ML BOT PR SCH (09:00)
[2022-03-03] MEDS ORDERED: GoLYTELY 4,000 ml Bottle PO SCH ×2 (10:45→19:30)
[2022-03-03] MEDS ORDERED: CEFAZOLIN 2 GM in Sodium Chloride 0.9% 100 ML IVPB SCH (14:45)
[2022-03-03] MEDS: CEFAZOLIN 2 GM in Sodium Chloride 0.9% 100 ML IVPB SCH (20:53)
[2022-03-04] MEDS: Levothyroxine Sodium 25 MCG TAB PO SCH (05:33)
[2022-03-04] MEDS: CEFAZOLIN 2 GM in Sodium Chloride 0.9% 100 ML IVPB SCH ×3 (05:33→21:41)
[2022-03-04] MEDS: Ascorbic Acid 500 mg Chewable Tablet PO SCH (08:20)
[2022-03-04] MEDS: Senokot S 8.6-50 MG TAB PO SCH ×2 (08:20→21:45)
[2022-03-04] MEDS: DULoxetine 30 MG CAP PO SCH (08:20)
[2022-03-04] MEDS: Amiodarone 200 MG TAB PO SCH (08:21)
[2022-03-04] MEDS: Cyanocobalamin (Vitamin B-12) 1,000 MCG TAB PO SCH (08:21)
[2022-03-04] MEDS: Furosemide 40 MG TAB PO SCH (08:21)
[2022-03-04] MEDS: pyridOXINE 50 MG (B6) TAB PO SCH ×2 (08:21→21:44)
[2022-03-04] MEDS: Calcium Carbonate 600 MG + Vit D TAB PER TUBE SCH (08:21)
[2022-03-04] MEDS: HYDROcodone/Acetaminophen 10/325 mg Tablet PO PRN (11:08)
[2022-03-05] MEDS: HYDROcodone/Acetaminophen 10/325 mg Tablet PO PRN ×2 (00:37→23:52)
[2022-03-05] MEDS: CEFAZOLIN 2 GM in Sodium Chloride 0.9% 100 ML IVPB SCH ×3 (05:00→21:23)
[2022-03-05] MEDS: Levothyroxine Sodium 25 MCG TAB PO SCH (05:00)
[2022-03-05] MEDS: pyridOXINE 50 MG (B6) TAB PO SCH ×2 (08:58→21:23)
[2022-03-05] MEDS: Senokot S 8.6-50 MG TAB PO SCH ×2 (08:58→21:23)
[2022-03-05] MEDS: DULoxetine 30 MG CAP PO SCH (08:58)
[2022-03-05] MEDS: Calcium Carbonate 600 MG + Vit D TAB PER TUBE SCH (08:58)
[2022-03-05] MEDS: Polyethylene Glycol 3350 17 GM Packet PER TUBE SCH (08:58)
[2022-03-05] MEDS: Amiodarone 200 MG TAB PO SCH (08:59)
[2022-03-05] MEDS: Furosemide 40 MG TAB PO SCH (08:59)
[2022-03-05] MEDS: Ascorbic Acid 500 mg Chewable Tablet PO SCH (08:59)
[2022-03-05] MEDS: Cyanocobalamin (Vitamin B-12) 1,000 MCG TAB PO SCH (08:59)
[2022-03-05 09:16] LABS: #Eosinphils 0.1 thou/uL (0.0-0.7); #Lymphocytes 0.7 thou/uL (1.20-3.40); #Monocytes 0.8 thou/uL (0.11-0.59); #Neutrophils 14.6 thou/uL (1.40-6.50); %Basophils 0.2 % (0.0-1.0); %Eosinophils 0.3 % (0.0-10.0); %Lymphocytes 4.5 % (21.0-51.0); %Monocytes 4.7 % (0.0-10.0); %Neutrophils 90.3 % (42.0-75.0); Mean Corpuscular Hemoglobin 32.2 pg (27.0-31.0); Mean Platelet Volume 6.1 fL (7.4-10.4); Platelet Count 353 thou/uL (130-400); RBC Distribution Width 15.9 % (11.5-14.5); Red Blood Cell (RBC) Count 2.48 mill/uL (4.70-6.10); White Blood Cell (WBC) Count 16.1 thou/uL (4.8-10.8)
[2022-03-05 09:39] LABS: ALT (SGPT) Less than 7 U/L (8-55); AST (SGOT) 14 U/L (5-34); Albumin 2.4 g/dL (3.5-5.0); Alkaline Phosphatase 100 U/L (40-110); Anion Gap 11 mmol/L (10-20); BUN (Urea Nitrogen) 33 mg/dL (8.4-25.7); Bilirubin, Total 0.4 mg/dL (0.2-1.2); Calc. Creatinine Clearance 99 mL/min (70-130); Calcium 8.7 mg/dL (7.8-10.44); Carbon Dioxide 28 mmol/L (22-29); Chloride 101 mmol/L (98-107); Estimated GFR 89; Globulin 5.1 g/dL (2.4-3.5); Glucose 118 mg/dL (70-105); Potassium 3.4 mmol/L (3.5-5.1); Protein, Total 7.5 g/dL (6.0-8.3); Sodium 137 mmol/L (136-145)
[2022-03-05] MEDS ORDERED: Heparin 1,000 UNITS/ML VIAL CATH SCH ×2 (15:30→20:00)
[2022-03-05] MEDS ORDERED: Iopamidol-370 76% 500 ML 1 ML ONE (16:06)
[2022-03-05] MEDS: Ondansetron PF 4 MG/2 ML Vial IVP PRN (16:26)
[2022-03-05] MEDS ORDERED: Heparin 10,000 UNITS/ 10 ML VIAL CATH SCH ×2 (23:59)
[2022-03-06] MEDS: Levothyroxine Sodium 25 MCG TAB PO SCH (04:46)
[2022-03-06] MEDS: CEFAZOLIN 2 GM in Sodium Chloride 0.9% 100 ML IVPB SCH ×2 (04:48→14:21)
[2022-03-06 07:28] VITALS: BP 151/85; TEMP 97.7
[2022-03-06] MEDS: Ascorbic Acid 500 mg Chewable Tablet PO SCH (08:16)
[2022-03-06] MEDS: Calcium Carbonate 600 MG + Vit D TAB PER TUBE SCH (08:16)
[2022-03-06] MEDS: Amiodarone 200 MG TAB PO SCH (08:16)
[2022-03-06] MEDS: Senokot S 8.6-50 MG TAB PO SCH (08:17)
[2022-03-06] MEDS: DULoxetine 30 MG CAP PO SCH (08:17)
[2022-03-06] MEDS: Furosemide 40 MG TAB PO SCH (08:17)
[2022-03-06] MEDS: Cyanocobalamin (Vitamin B-12) 1,000 MCG TAB PO SCH (08:17)
[2022-03-06] MEDS: pyridOXINE 50 MG (B6) TAB PO SCH (08:17)
[2022-03-06] MEDS: Polyethylene Glycol 3350 17 GM Packet PER TUBE SCH (08:17)
[2022-03-06] MEDS: HYDROcodone/Acetaminophen 10/325 mg Tablet PO PRN (10:28)
[2022-03-06] MEDS ORDERED: Lidocaine 1% w/Epinephrine 1:100K 20 ML VIAL ONE (10:50)
[2022-03-06] MEDS: Morphine 4 MG/ML VIAL ONE ×2 (11:07→11:40)
[2022-03-06] MEDS ORDERED: Morphine 4 MG/ML VIAL SLOW IVP SCH (11:15)
[2022-03-06] MEDS ORDERED: Heparin 1,000 UNITS/ML VIAL ONE (16:27)
== END 2022-03-06 18:02 | DRG 853 ==
LOC: ERS 17:38 → CCU 19:35 → IMCU/EMU 01-22 11:29 → T4-B 02-01 15:48
PROVIDERS: ADMIT Internal Medicine; ATTEND Internal Medicine
PROC: 3E03329 Introduction of Other Anti-infective into Peripheral Vein, Percutaneous Approach (ICD-10-PCS; 2022-01-10)
PROC: 3E043XZ Introduction of Vasopressor into Central Vein, Percutaneous Approach (ICD-10-PCS; 2022-01-10)
PROC: 5A09357 Assistance with Respiratory Ventilation, Less than 24 Consecutive Hours, Continuous Positive Airway Pressure (ICD-10-PCS; 2022-01-10)
PROC: 02HV33Z Insertion of Infusion Device into Superior Vena Cava, Percutaneous Approach (ICD-10-PCS; 2022-01-10)
PROC: B548ZZA Ultrasonography of Superior Vena Cava, Guidance (ICD-10-PCS; 2022-01-10)
PROC: 5A1955Z Respiratory Ventilation, Greater than 96 Consecutive Hours (ICD-10-PCS; principal; 2022-01-11)
PROC: 0BH18EZ Insertion of Endotracheal Airway into Trachea, Via Natural or Artificial Opening Endoscopic (ICD-10-PCS; 2022-01-11)
PROC: 0BJ08ZZ Inspection of Tracheobronchial Tree, Via Natural or Artificial Opening Endoscopic (ICD-10-PCS; 2022-01-11)
PROC: 04HY32Z Insertion of Monitoring Device into Lower Artery, Percutaneous Approach (ICD-10-PCS; 2022-01-11)
PROC: 3E04329 Introduction of Other Anti-infective into Central Vein, Percutaneous Approach (ICD-10-PCS; 2022-01-12)
PROC: 06HY33Z Insertion of Infusion Device into Lower Vein, Percutaneous Approach (ICD-10-PCS; 2022-01-13)
PROC: 5A1D70Z Performance of Urinary Filtration, Intermittent, Less than 6 Hours Per Day (ICD-10-PCS; 2022-01-13)
PROC: 0W9930Z Drainage of Right Pleural Cavity with Drainage Device, Percutaneous Approach (ICD-10-PCS; 2022-01-16)
PROC: 30233N1 Transfusion of Nonautologous Red Blood Cells into Peripheral Vein, Percutaneous Approach (ICD-10-PCS; 2022-01-19)
PROC: 0D9670Z Drainage of Stomach with Drainage Device, Via Natural or Artificial Opening (ICD-10-PCS; 2022-01-26)
PROC: B24BZZ4 Ultrasonography of Heart with Aorta, Transesophageal (ICD-10-PCS; 2022-01-27)
PROC: 3E0436Z Introduction of Nutritional Substance into Central Vein, Percutaneous Approach (ICD-10-PCS; 2022-02-01)
PROC: 0K9R0ZZ Drainage of Left Upper Leg Muscle, Open Approach (ICD-10-PCS; 2022-02-23)
PROC: 02H633Z Insertion of Infusion Device into Right Atrium, Percutaneous Approach (ICD-10-PCS; 2022-02-23)
PROC: 0W9H30Z Drainage of Retroperitoneum with Drainage Device, Percutaneous Approach (ICD-10-PCS; 2022-02-25)
PROC: 05PYX3Z Removal of Infusion Device from Upper Vein, External Approach (ICD-10-PCS; 2022-03-06)
PROC: 02H633Z Insertion of Infusion Device into Right Atrium, Percutaneous Approach (ICD-10-PCS; 2022-03-06)
PROC: B5181ZA Fluoroscopy of Superior Vena Cava using Low Osmolar Contrast, Guidance (ICD-10-PCS; 2022-03-06)
PROC: B548ZZA Ultrasonography of Superior Vena Cava, Guidance (ICD-10-PCS; 2022-03-06)
DX: A41.01 Sepsis due to Methicillin susceptible Staphylococcus aureus (principal); R65.21 Severe sepsis with septic shock; J95.811 Postprocedural pneumothorax; K68.12 Psoas muscle abscess; J96.01 Acute respiratory failure with hypoxia; N17.0 Acute kidney failure with tubular necrosis; I26.90 Septic pulmonary embolism without acute cor pulmonale; G93.41 Metabolic encephalopathy; R53.2 Functional quadriplegia; K68.19 Other retroperitoneal abscess; J18.9 Pneumonia, unspecified organism; L02.416 Cutaneous abscess of left lower limb; E87.1 Hypo-osmolality and hyponatremia; D68.9 Coagulation defect, unspecified; M62.82 Rhabdomyolysis; L02.818 Cutaneous abscess of other sites; I76 Septic arterial embolism; E87.4 Mixed disorder of acid-base balance; I82.413 Acute embolism and thrombosis of femoral vein, bilateral; D62 Acute posthemorrhagic anemia; K56.7 Ileus, unspecified; E46 Unspecified protein-calorie malnutrition; N41.2 Abscess of prostate; G72.81 Critical illness myopathy; G62.81 Critical illness polyneuropathy; N18.4 Chronic kidney disease, stage 4 (severe); I13.0 Hypertensive heart and chronic kidney disease with heart failure and stage 1 through stage 4 chronic kidney disease, or unspecified chronic kidney disease; J95.859 Other complication of respirator [ventilator]; Z20.822 Contact with and (suspected) exposure to COVID-19; I35.8 Other nonrheumatic aortic valve disorders; G89.29 Other chronic pain; M54.9 Dorsalgia, unspecified; R74.01 Elevation of levels of liver transaminase levels; E86.9 Volume depletion, unspecified; E86.1 Hypovolemia; E11.65 Type 2 diabetes mellitus with hyperglycemia; R31.9 Hematuria, unspecified; E66.9 Obesity, unspecified; B95.61 Methicillin susceptible Staphylococcus aureus infection as the cause of diseases classified elsewhere; D63.1 Anemia in chronic kidney disease; E11.22 Type 2 diabetes mellitus with diabetic chronic kidney disease; I12.9 Hypertensive chronic kidney disease with stage 1 through stage 4 chronic kidney disease, or unspecified chronic kidney disease; I48.0 Paroxysmal atrial fibrillation; M48.061 Spinal stenosis, lumbar region without neurogenic claudication; I50.9 Heart failure, unspecified; R13.12 Dysphagia, oropharyngeal phase; E11.43 Type 2 diabetes mellitus with diabetic autonomic (poly)neuropathy; K31.84 Gastroparesis; M21.331 Wrist drop, right wrist; D69.6 Thrombocytopenia, unspecified; E88.09 Other disorders of plasma-protein metabolism, not elsewhere classified; E55.9 Vitamin D deficiency, unspecified; I49.3 Ventricular premature depolarization; E87.6 Hypokalemia; R22.32 Localized swelling, mass and lump, left upper limb; I49.1 Atrial premature depolarization; E03.9 Hypothyroidism, unspecified; Y84.8 Other medical procedures as the cause of abnormal reaction of the patient, or of later complication, without mention of misadventure at the time of the procedure; M25.572 Pain in left ankle and joints of left foot; K59.00 Constipation, unspecified; M25.59 Pain in other specified joint; Z68.37 Body mass index [BMI] 37.0-37.9, adult; Z78.1 Physical restraint status; Z88.6 Allergy status to analgesic agent; Z88.5 Allergy status to narcotic agent; Z88.8 Allergy status to other drugs, medicaments and biological substances; Z90.49 Acquired absence of other specified parts of digestive tract; Z98.890 Other specified postprocedural states
CPT/HCPCS: 36415; 36416; 36430; 36556; 36569; 36600; 49020; 51702; 70450; 70551; 71045; 71250; 71260; 72141; 72146; 72148; 74018; 74176; 74177; 76770; 76999; 77002; 80048; 80053; 80061; 80069; 80076; 80162; 80202; 80306; 81001; 81003; 81015; 82010; 82040; 82085; 82271; 82306; 82550; 82553; 82570; 82728; 82805; 83036; 83540; 83550; 83605; 83615; 83735; 83880; 83930; 83935; 83970; 84100; 84145; 84156; 84300; 84439; 84443; 84484; 84540; 85025; 85027; 85046; 85049; 85060; 85300; 85362; 85379; 85384; 85520; 85610; 85652; 85730; 86038; 86140; 86160; 86225; 86704; 86706; 86803; 86850; 86900; 86901; 87040; 87070; 87077; 87086; 87149; 87186; 87205; 87340; 89190; 89220; 90935; 93005; 93010; 93306; 93312; 93970; 94002; 94003; 94640; 94660; 94760; 96361; 96365; 96366; 96368; 96372; 96374; 96375; 96376; 97139; A4217; C1729; C1751; C1752; C9113; G0257; J0282; J0690; J0696; J0883; J1100; J1160; J1170; J1642; J1644; J1650; J1652; J1720; J1815; J1956; J2001; J2060; J2250; J2270; J2370; J2405; J2543; J2700; J2704; J2765; J2916; J2920; J2930; J3010; J3370; J3480; J3490; J7030; J7050; J7070; J7620; J7799; P9016; P9047; Q0162; Q4081; Q9967; S0020; U0002; U0003; U0005

== ENCOUNTER 2022-06-26 00:30 | Observation (INO) | payer OTHER ==
[2022-06-26 01:20] LABS: #Basophils 0.1 thou/uL (0.0-0.2); #Eosinphils 0.3 thou/uL (0.0-0.7); #Lymphocytes 1.8 thou/uL (1.20-3.40); #Monocytes 0.9 thou/uL (0.11-0.59); #Neutrophils 8.7 thou/uL (1.40-6.50); %Basophils 0.7 % (0.0-1.0); %Eosinophils 2.3 % (0.0-10.0); %Monocytes 7.4 % (0.0-10.0); %Neutrophils 74.6 % (42.0-75.0); Hemoglobin 12.5 g/dL (14.0-18.0); Mean Corpuscular HGB CONC 32.9 g/dL (32.0-36.0); Mean Corpuscular Hemoglobin 33.2 pg (27.0-31.0); Mean Platelet Volume 6.5 fL (7.4-10.4); Platelet Count 376 10x3/uL (130-400); RBC Distribution Width 13.2 % (11.5-14.5); Red Blood Cell (RBC) Count 3.77 mill/uL (4.70-6.10); White Blood Cell (WBC) Count 11.7 10x3/uL (4.8-10.8)
[2022-06-26 01:45] LABS: ALT (SGPT) 14 U/L (8-55); AST (SGOT) 14 U/L (5-34); Albumin 3.5 g/dL (3.5-5.0); Alkaline Phosphatase 101 U/L (40-110); Anion Gap 12 mmol/L (10-20); BUN (Urea Nitrogen) 17 mg/dL (8.4-25.7); Bilirubin, Total 0.4 mg/dL (0.2-1.2); Calc. Creatinine Clearance 0 mL/min (70-130); Carbon Dioxide 24 mmol/L (22-29); Chloride 107 mmol/L (98-107); Estimated GFR 105; Globulin 3.3 g/dL (2.4-3.5); Glucose 155 mg/dL (70-105); Potassium 3.9 mmol/L (3.5-5.1); Protein, Total 6.8 g/dL (6.0-8.3); Sodium 139 mmol/L (136-145)
[2022-06-26] MEDS ORDERED: Ketorolac Tromethamine 30 MG/ML VIAL ONE (04:06)
[2022-06-26] MEDS ORDERED: Nitroglycerin 0.4 MG TAB (25 Tab Bottle) SL PRN (04:52)
[2022-06-26] MEDS ORDERED: Ondansetron PF 4 MG/2 ML Vial IVP PRN (04:52)
[2022-06-26 06:29] LABS: Hemoglobin A1c 5.1 % (4.0-6.0)
[2022-06-26 06:35] LABS: Magnesium 1.7 mg/dL (1.6-2.6)
[2022-06-26 06:40] LABS: Troponin I 0.031 ng/mL (< 0.028)
[2022-06-26 08:56] LABS: Troponin I 0.018 ng/mL (< 0.028)
[2022-06-26] MEDS ORDERED: Enoxaparin Sodium 30 MG/0.3 ML SYRINGE SC SCH (09:00)
[2022-06-26 09:25] VITALS: BMI 21.5
[2022-06-26] MEDS: Enoxaparin Sodium 30 MG/0.3 ML SYRINGE SC SCH (10:51)
[2022-06-26] MEDS ORDERED: Iopamidol-370 76% 500 ML 1 ML ONE (11:19)
[2022-06-26] MEDS ORDERED: FLU VACC QS2022-23(6MOS UP)/PF 60 MCG/0.5 ML SYRINGE IM ONE (12:00)
[2022-06-26] MEDS: HYDROcodone/Acetaminophen 10/325 mg Tablet PO PRN ×2 (12:23→21:40)
[2022-06-26] MEDS ORDERED: Metoprolol Tartrate 50 MG TAB PO SCH (21:00)
[2022-06-27 05:34] LABS: #Eosinphils 0.2 thou/uL (0.0-0.7); #Lymphocytes 1.7 thou/uL (1.20-3.40); #Monocytes 0.5 thou/uL (0.11-0.59); #Neutrophils 5.6 thou/uL (1.40-6.50); %Basophils 0.3 % (0.0-1.0); %Eosinophils 2.6 % (0.0-10.0); %Lymphocytes 20.7 % (21.0-51.0); %Monocytes 6.5 % (0.0-10.0); %Neutrophils 69.8 % (42.0-75.0); Hemoglobin 11.3 g/dL (14.0-18.0); Mean Platelet Volume 6.9 fL (7.4-10.4); Platelet Count 312 10x3/uL (130-400); RBC Distribution Width 13.5 % (11.5-14.5); Red Blood Cell (RBC) Count 3.54 mill/uL (4.70-6.10); White Blood Cell (WBC) Count 8.1 10x3/uL (4.8-10.8)
[2022-06-27 05:54] LABS: Anion Gap 9 mmol/L (10-20); BUN (Urea Nitrogen) 22 mg/dL (8.4-25.7); Calc. Creatinine Clearance 93 mL/min (70-130); Calcium 9.1 mg/dL (7.8-10.44); Carbon Dioxide 27 mmol/L (22-29); Chloride 107 mmol/L (98-107); Estimated GFR 104; Glucose 109 mg/dL (70-105); Potassium 4.9 mmol/L (3.5-5.1); Sodium 138 mmol/L (136-145)
[2022-06-27] MEDS ORDERED: hydrALAZINE 20 MG/ML VIAL SLOW IVP PRN (08:07)
[2022-06-27] MEDS ORDERED: Amiodarone 200 MG TAB PO SCH (09:00)
[2022-06-27] MEDS: Enoxaparin Sodium 30 MG/0.3 ML SYRINGE SC SCH (09:11)
[2022-06-27 16:39] VITALS: BP 148/90; TEMP 97.8
== END 2022-06-27 16:50 | disposition home or self-care (01) ==
LOC: ERS 00:30 → ERHOLD 04:52 → 2SW 09:10
PROVIDERS: ADMIT Internal Medicine; ATTEND Internal Medicine
DX: R07.9 Chest pain, unspecified (principal); I48.0 Paroxysmal atrial fibrillation; S71.102A Unspecified open wound, left thigh, initial encounter; I11.9 Hypertensive heart disease without heart failure; R73.03 Prediabetes; E03.9 Hypothyroidism, unspecified; G89.29 Other chronic pain; M54.9 Dorsalgia, unspecified; I08.1 Rheumatic disorders of both mitral and tricuspid valves; Z86.718 Personal history of other venous thrombosis and embolism; Z79.899 Other long term (current) drug therapy; Z88.1 Allergy status to other antibiotic agents; Z88.5 Allergy status to narcotic agent; Z88.6 Allergy status to analgesic agent; Z91.018 Allergy to other foods; Z20.822 Contact with and (suspected) exposure to COVID-19
CPT/HCPCS: 36415; 71045; 71275; 74174; 80048; 80053; 83036; 83735; 84484; 85025; 93005; 93306; 94760; 96374; 97139; G0378; J1885; Q9967; U0003; U0005

== ENCOUNTER 2022-07-09 12:51 | Emergency (ER) | payer OTHER ==
[2022-07-09 13:45] LABS: #Basophils 0.1 thou/uL (0.0-0.2); #Eosinphils 0.2 thou/uL (0.0-0.7); #Lymphocytes 1.5 thou/uL (1.20-3.40); #Monocytes 0.8 thou/uL (0.11-0.59); #Neutrophils 8.3 thou/uL (1.40-6.50); %Basophils 0.7 % (0.0-1.0); %Eosinophils 2.1 % (0.0-10.0); %Lymphocytes 13.5 % (21.0-51.0); %Neutrophils 76.6 % (42.0-75.0); Hemoglobin 13.7 g/dL (14.0-18.0); Mean Corpuscular HGB CONC 32.6 g/dL (32.0-36.0); Mean Corpuscular Hemoglobin 32.6 pg (27.0-31.0); Mean Corpuscular Volume 99.9 fl (78.0-98.0); Mean Platelet Volume 6.9 fL (7.4-10.4); Platelet Count 293 10x3/uL (130-400); RBC Distribution Width 13.3 % (11.5-14.5); Red Blood Cell (RBC) Count 4.19 mill/uL (4.70-6.10); White Blood Cell (WBC) Count 10.8 10x3/uL (4.8-10.8)
[2022-07-09 14:28] LABS: ALT (SGPT) 17 U/L (8-55); AST (SGOT) 19 U/L (5-34); Albumin 3.7 g/dL (3.5-5.0); Alkaline Phosphatase 84 U/L (40-110); Anion Gap 15 mmol/L (10-20); BUN (Urea Nitrogen) 18 mg/dL (8.4-25.7); Bilirubin, Total 1.1 mg/dL (0.2-1.2); Calc. Creatinine Clearance 0 mL/min (70-130); Calcium 9.2 mg/dL (7.8-10.44); Carbon Dioxide 20 mmol/L (22-29); Chloride 108 mmol/L (98-107); Estimated GFR 104; Glucose 141 mg/dL (70-105); Lipase 12 U/L (8-78); Potassium 3.9 mmol/L (3.5-5.1); Protein, Total 7.7 g/dL (6.0-8.3); Sodium 139 mmol/L (136-145)
== END 2022-07-09 16:19 | disposition home or self-care (01) ==
LOC: ERS 12:51
DX: T81.41XA Infection following a procedure, superficial incisional surgical site, initial encounter (principal); I10 Essential (primary) hypertension; E11.9 Type 2 diabetes mellitus without complications
CPT/HCPCS: 36415; 80053; 83605; 83690; 85025

== ENCOUNTER 2022-09-10 13:12 | Emergency (ER) | payer OTHER ==
[2022-09-10 14:02] LABS: #Eosinphils 0.5 thou/uL (0.0-0.7); #Lymphocytes 1.8 thou/uL (1.20-3.40); #Monocytes 0.5 thou/uL (0.11-0.59); #Neutrophils 8.5 thou/uL (1.40-6.50); %Basophils 0.4 % (0.0-1.0); %Monocytes 4.6 % (0.0-10.0); %Neutrophils 74.9 % (42.0-75.0); Hemoglobin 14.5 g/dL (14.0-18.0); Mean Corpuscular HGB CONC 31.8 g/dL (32.0-36.0); Mean Corpuscular Hemoglobin 31.3 pg (27.0-31.0); Mean Corpuscular Volume 98.7 fl (78.0-98.0); Mean Platelet Volume 7.2 fL (7.4-10.4); Platelet Count 306 10x3/uL (130-400); RBC Distribution Width 13.3 % (11.5-14.5); Red Blood Cell (RBC) Count 4.61 mill/uL (4.70-6.10); White Blood Cell (WBC) Count 11.3 10x3/uL (4.8-10.8)
[2022-09-10 14:24] LABS: ALT (SGPT) 24 U/L (8-55); AST (SGOT) 22 U/L (5-34); Albumin 3.9 g/dL (3.5-5.0); Alkaline Phosphatase 82 U/L (40-110); Anion Gap 15 mmol/L (10-20); BUN (Urea Nitrogen) 20 mg/dL (8.4-25.7); Bilirubin, Total 1.2 mg/dL (0.2-1.2); Calc. Creatinine Clearance 0 mL/min (70-130); Calcium 9.5 mg/dL (7.8-10.44); Carbon Dioxide 20 mmol/L (22-29); Chloride 108 mmol/L (98-107); Estimated GFR 95; Globulin 3.7 g/dL (2.4-3.5); Glucose 146 mg/dL (70-105); Lipase 10 U/L (8-78); Potassium 4.4 mmol/L (3.5-5.1); Protein, Total 7.6 g/dL (6.0-8.3); Sodium 139 mmol/L (136-145)
[2022-09-10 14:43] LABS: Bilirubin Negative (Negative); Blood, Urine Negative (Negative); Clarity Clear (Clear); Glucose, Urine (Dipstick) Normal (Negative); Ketone, Urine Negative (Negative); Leukocyte Negative Leu/uL (Negative); Nitrite Negative (Negative); Protein, Urine (Dipstick) 10 mg/dL (Neg-Trace); Specific Gravity, Urine 1.019 (1.002-1.036); Urobilinogen Normal mg/dL (Less than 2)
== END 2022-09-10 15:20 | disposition home or self-care (01) ==
LOC: ERS 13:12
DX: R10.9 Unspecified abdominal pain (principal); D72.829 Elevated white blood cell count, unspecified; I10 Essential (primary) hypertension; E11.9 Type 2 diabetes mellitus without complications
CPT/HCPCS: 36415; 74177; 80053; 81003; 83690; 85025; 94760

== ENCOUNTER 2023-07-16 15:32 | Emergency (ER) | payer OTHER, SELFPAY ==
[2023-07-16] MEDS ORDERED: Ibuprofen 200 MG TAB ONE (16:29)
[2023-07-16] MEDS ORDERED: Acetaminophen 500 MG TAB ONE (16:34)
== END 2023-07-16 16:36 | disposition home or self-care (01) ==
LOC: ERS 15:32
DX: R05.9 Cough, unspecified (principal); I10 Essential (primary) hypertension; E11.9 Type 2 diabetes mellitus without complications
CPT/HCPCS: 71045